=== PATIENT | female | born 1945 | race Caucasian/White ===

== ENCOUNTER → 2023-07-29 14:24 | Outpatient (REF) | payer MEDICARE, SELFPAY | LOC: RAD 14:24 | PROVIDERS: ATTENDING PHYSICIAN Internal Medicine Critical Care Medicine; FAMILY PHYSICIAN Internal Medicine | DX: R91.1 Solitary pulmonary nodule (principal) | CPT/HCPCS: 71250 ==

== ENCOUNTER → 2023-12-08 12:00 | Outpatient (REF) | payer MEDICARE, SELFPAY | LOC: DHSLP 12:00 | PROVIDERS: ATTENDING PHYSICIAN Internal Medicine Critical Care Medicine; FAMILY PHYSICIAN Internal Medicine | DX: G47.33 Obstructive sleep apnea (adult) (pediatric) (principal) | CPT/HCPCS: 95806 ==

== ENCOUNTER → 2023-12-10 12:51 | Outpatient (REF) | payer MEDICARE, SELFPAY | LOC: RAD 12:51 | PROVIDERS: ATTENDING PHYSICIAN Surgery Vascular Surgery; FAMILY PHYSICIAN Internal Medicine | DX: I65.22 Occlusion and stenosis of left carotid artery (principal) | CPT/HCPCS: 93880 ==

== ENCOUNTER → 2024-01-17 09:01 | Outpatient (REF) | payer MEDICARE, SELFPAY | LOC: RAD 09:01 | PROVIDERS: ATTENDING PHYSICIAN Internal Medicine Critical Care Medicine; FAMILY PHYSICIAN Internal Medicine | DX: R91.1 Solitary pulmonary nodule (principal); J84.9 Interstitial pulmonary disease, unspecified | CPT/HCPCS: 71250 ==

== ENCOUNTER → 2024-07-08 08:03 | Outpatient (REF) | payer MEDICARE, SELFPAY | LOC: RAD 08:03 | PROVIDERS: ATTENDING PHYSICIAN Internal Medicine | DX: J44.1 Chronic obstructive pulmonary disease with (acute) exacerbation (principal) | CPT/HCPCS: 71046 ==

== ENCOUNTER → 2024-10-18 08:05 | Outpatient (REF) | payer MEDICARE, SELFPAY | LOC: RCS 08:05 | PROVIDERS: ATTENDING PHYSICIAN Internal Medicine | DX: J44.1 Chronic obstructive pulmonary disease with (acute) exacerbation (principal); I48.20 Chronic atrial fibrillation, unspecified | CPT/HCPCS: 71046; 93306 ==

== ENCOUNTER → 2024-12-15 08:47 | Outpatient (REF) | payer MEDICARE, SELFPAY | LOC: DHVS 08:47 | PROVIDERS: ATTENDING PHYSICIAN Registered Nurse; FAMILY PHYSICIAN Internal Medicine | DX: I65.22 Occlusion and stenosis of left carotid artery (principal); I65.23 Occlusion and stenosis of bilateral carotid arteries | CPT/HCPCS: 93880 ==

== ENCOUNTER 2024-12-22 10:32 | Inpatient (IN) | payer MEDICARE, SELFPAY ==
[2024-12-22] VITALS (97 sets, daily range): BP systolic 66–192; BP diastolic 27–123; PULSE 2–124; BMI 31.8
--- NOTE | 2024-12-22 06:35 | ED.GENMED ---
History of Present Illness
<Lawson Grimes PA-C - Last Filed: 12/22/24 12:52>
General
Chief Complaint: Breathing Problem
Source: patient and spouse
Time Seen by Provider: 12/22/24 06:13
History of Present Illness
History of Present Illness:
79-year-old female with past medical history of atrial fibrillation, hypertension, asthma presenting to the emergency department for evaluation of a sudden onset of shortness of breath that began acutely starting after she went to bed last night,
stating that he noticed patient was coughing a little bit last night before bedtime but that patient had awoken in the middle the night stating she felt short of breath, pulse ox was reportedly around 90% on room air so has been put the
patient on 2 L oxygen via nasal cannula but patient still was experiencing shortness of breath prompting him to bring her to the ER for further evaluation. Both the patient and report that about a month and a half ago they were in [facility]
[place] when similar symptoms developed with the patient stating she had 'some type of infection but the hospital would not tell me what type of infection' and needed further oxygen and respiratory care during her hospitalization and
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 There has not been any reported fevers, chills,
rigors, current chest pain, palpitations or diaphoresis, abdominal pain, nausea, vomiting. Patient reports she is compliant with medications although she is having a hard time recollecting exactly what medications she is on but does endorse being
on a blood thinning medication.
Past History
<Lawson Grimes PA-C - Last Filed: 12/22/24 12:52>
Past History
ED Past Medical History: Arrthythmia, Asthma and HTN
ED Past Surgical History: None
Social History
Tobacco: Non-smoker
Alcohol: None
Drug: None
Personal:
Living: with family
Review of Systems
<Lawson Grimes PA-C - Last Filed: 12/22/24 12:52>
Review of Systems
All Other Systems: ROS reviewed and negative except as documented in HPI and ROS
Phy Exam
<Lawson Grimes PA-C - Last Filed: 12/22/24 12:52>
Physical Exam
Physical Exam:
GENERAL: Alert , appears uncomfortable, tachypneic, difficulty speaking in full sentences
HEAD: Normocephalic atraumatic
EYE: clear conjunctiva
NECK: Supple
ENT: o/p clr, mmm.
CARDIAC: Irregularly irregular, tachycardic rate between 120 bpm and 145 bpm
LUNGS: Diminished both anterior and posteriorly, crackles anteriorly, minimal air movement in the posterior lung ramachandran
ABDOMEN: Soft, without focal tenderness, no r/g, no cvat
NEUROLOGICAL: Alert and oriented
SKIN: Warm and dry, skin intact.
MUSCULOSKELETAL: No edema, well perfused.
PSYCH: Normal and appropriate interaction.
Scores
<Lawson Grimes PA-C - Last Filed: 12/22/24 12:52>
Heart Failure Risk
Heart Failure Risk Score: Yes
History of Stroke or TIA: No
History of intubation for respiratory distress: No
Heart rate on ED arrival >/= 110: Yes
SaO2 <90% on arrival on room air: Yes
HR >/=110 during 3min walk test (or too ill to perform test): Yes
ECG has acute ischemic changes: No
Urea >/=12mmol/L (BUN 33.6mg/dL): No
Serum CO2>/=35mmol/L: No
Troponin I or T elevated to AL Level (0.4mg/dL): No
NT-proBNP >/=5,000ng/L (5,000pg/ml): No
HF Risk Score: 3
Admission Status: HIGH RISK 15.9% Consider SNF treatment or admission to hospital
Heart Score for Chest Pain Patients
STEMI patient?: Not applicable
Withdrawal Assessment of Alcohol
Withdrawal Assessment Completed?: Not applicable
Course
<Lawson Grimes PA-C - Last Filed: 12/22/24 12:52>
Orders/Labs/Results
Orders:
Orders
12/22/24 06:14
Electrocardiogram (*1) Urgent
Reason for Study: Other
Other Reason for Exam: Respiratory Distress
Cardiac Monitoring- Treatment ONCE
EKG- Treatment ONCE
IV Insert/Care/Rem.- Treatment PRN
CR Chest Portable - 1 View Urgent
Reason For Exam: respiratory distress
O2 Therapy [RESP] Urgent
Titrate/Wean O2 to maintain O2 sat greater than (%): 93
Special Instructions: TO MAINTAIN CONTINUOUS O2 SATS >/= 93%
Pulse Ox/cont/shift [RESP] Urgent
Quantity: 1
Special Instructions: continuous pulse ox
12/22/24 06:27
Complete Blood Count/With Diff Urgent
Comprehensive Metabolic Panel Urgent
NT-proBNP Urgent
Troponin I Urgent
12/22/24 06:32
Diltiazem HCl [Cardizem] 10 mg IV NOW STA
Ipratropium/Albuterol Sulfate [Duoneb] 3 ml INH R NOW ONE
Bipap [RESP] Urgent
Patient to use own unit?: No
Inspiratory Pressure (cm H2O): 14
Expiratory Pressure (cm H2O): 6
12/22/24 06:43
Furosemide [Lasix] 20 mg IV NOW STA
12/22/24 06:45
Diltiazem 125 mg/125 ml Nss [Cardizem] 125 mg in 125 ml IV PER PROTOCOL
Initial dose in mg/hr, then titrate:: 5
Titrate to keep:: Heart rate 80-100 bpm
Titrate by mg/hr:: 5 mg/hr
Frequency of titrations (minutes):: 15
Maximum dose in mg/hr:: 15
Nitroglycerin 100 mg/250 ml [Nitroglycerin Premix] 100 mg in 250 ml IV PER PROTOCOL
Initial dose in mcg/min, then titrate:: 50
Titrate to keep:: SBP < 160 mmHg
Titrate by mcg/min:: 5 mcg/min, may increase by 10 mcg/min if dose > 20 mcg/min
Frequency of titrations (minutes):: every 3-5 minutes
Maximum dose in mcg/min:: 200
Begin to taper infusion when:: Remained at goal for 2hrs
Taper by mcg/min:: 5 mcg/min
Frequency of taper (minutes) if patient maintains goal:: 30
Taper to off?: Yes
If infusion off & no longer maintaining goal:: Contact Provider
12/22/24 07:09
COVID-19 Antigen Urgent
Source: Nasal Swab
12/22/24 07:46
Add On- LAB Urgent
Tests Added?: d-dimer
12/22/24 07:56
ABG [Arterial Blood Gas] Urgent
%Oxygen/Room Air: 4L NC
12/22/24 09:07
D-Dimer Routine
12/22/24 09:52
Admit/Transfer Patient As Directed
Co-Sign Provider:
Level of Care: Inpatient admission
Assign to:: IMU- Intermediate Care
Physician / Group: hospitalist
Diagnosis: Acute hypoxic respiratory failure
Reason for Hospitalization: Acute hypoxic respiratory failure
Expected length of stay greater than two midnights?: Yes
ELOS- Estimated Length of Stay in days: 3
I certify the patient meets the requirements for IP care: Yes
PRN Pain Medication Management As Directed
May give lesser potent ordered pain med per pt: Yes
preference::
Protocol:: Medication orders for pain may be administered in a
manner that supports deferring to patient preference
when the pt is:
- Requesting an ordered lesser potent pain medication.
Least to most potent pain medications are defined
as: acetaminophen < NSAID < tramadol < opioids
(morphine, oxycodone, hydromorphone).
- Requesting a lesser dose of the same medication IF
ORDERED.
- Requesting a less intrusive route of administration
if both routes are prescribed by the provider (PO <
IV).
12/22/24 09:56
Code Status As Directed
Resuscitation Status: Full Code
12/22/24 10:24
CT Chest W/o Iv Contrast Routine
Comment:
Reason For Exam: Acute onset SOB
Abnormal Lab Results
12/22/24 12/22/24 12/22/24
06:27 07:56 09:07
WBC 11.1 H 10^3/uL
(4.8-10.8)
MCHC 31.6 L g/dL
(33.0-37.0)
RDW 15.2 H %
(11.5-14.5)
Abs Immat Gran (auto) 0.1 H 10^3/uL
(0-0.05)
Absolute Neuts (auto) 9.5 H 10^3/uL
(1.4-6.5)
Absolute Lymphs (auto) 0.6 L 10^3/uL
(1.2-3.4)
Absolute Monos (auto) 0.7 H 10^3/uL
(0.1-0.6)
Neutrophils % 85.5 H %
(42.2-75.2)
Lymphocytes % 5.7 L %
(20.5-51.1)
D-Dimer 0.77 H ug/mlFEU
(0.00-0.50)
pCO2 37 H mmHg
(32-35)
pO2 75 L mmHg
(83-108)
Chloride 110 H mmol/L
(98-107)
BUN 18 H mg/dl
(7-17)
Glucose 116 H mg/dl
(70-99)
12/22/24 06:27
12/22/24 06:27
Vital Signs
Initial and Last Documented VS:
Initial Vital Signs
Temp Pulse Resp BP Pulse Ox
98.4 F 126 28 154/123 95
12/22/24 06:14 12/22/24 06:14 12/22/24 06:14 12/22/24 06:14 12/22/24 06:14
Last Documented Vital Signs
Temp Pulse Resp BP Pulse Ox
98.4 F 88 19 126/90 94
12/22/24 06:40 12/22/24 12:25 12/22/24 12:25 12/22/24 12:25 12/22/24 12:25
<Braden Dupree MD - Last Filed: 12/22/24 07:12>
Orders/Labs/Results
Orders:
Orders
12/22/24 06:14
Electrocardiogram (*1) Urgent
Reason for Study: Other
Other Reason for Exam: Respiratory Distress
Cardiac Monitoring- Treatment ONCE
EKG- Treatment ONCE
IV Insert/Care/Rem.- Treatment PRN
CR Chest Portable - 1 View Urgent
Reason For Exam: respiratory distress
O2 Therapy [RESP] Urgent
Titrate/Wean O2 to maintain O2 sat greater than (%): 93
Special Instructions: TO MAINTAIN CONTINUOUS O2 SATS >/= 93%
Pulse Ox/cont/shift [RESP] Urgent
Quantity: 1
Special Instructions: continuous pulse ox
12/22/24 06:27
Complete Blood Count/With Diff Urgent
Comprehensive Metabolic Panel Urgent
NT-proBNP Urgent
Troponin I Urgent
12/22/24 06:32
Diltiazem HCl [Cardizem] 10 mg IV NOW STA
Ipratropium/Albuterol Sulfate [Duoneb] 3 ml INH R NOW ONE
Bipap [RESP] Urgent
Patient to use own unit?: No
Inspiratory Pressure (cm H2O): 14
Expiratory Pressure (cm H2O): 6
12/22/24 06:43
Furosemide [Lasix] 20 mg IV NOW STA
12/22/24 06:45
Diltiazem 125 mg/125 ml Nss [Cardizem] 125 mg in 125 ml IV PER PROTOCOL
Initial dose in mg/hr, then titrate:: 5
Titrate to keep:: Heart rate 80-100 bpm
Titrate by mg/hr:: 5 mg/hr
Frequency of titrations (minutes):: 15
Maximum dose in mg/hr:: 15
Nitroglycerin 100 mg/250 ml [Nitroglycerin Premix] 100 mg in 250 ml IV PER PROTOCOL
Initial dose in mcg/min, then titrate:: 50
Titrate to keep:: SBP < 160 mmHg
Titrate by mcg/min:: 5 mcg/min, may increase by 10 mcg/min if dose > 20 mcg/min
Frequency of titrations (minutes):: every 3-5 minutes
Maximum dose in mcg/min:: 200
Begin to taper infusion when:: Remained at goal for 2hrs
Taper by mcg/min:: 5 mcg/min
Frequency of taper (minutes) if patient maintains goal:: 30
Taper to off?: Yes
If infusion off & no longer maintaining goal:: Contact Provider
12/22/24 07:09
COVID-19 Antigen Urgent
Source: Nasal Swab
12/22/24 07:46
Add On- LAB Urgent
Tests Added?: d-dimer
12/22/24 07:56
ABG [Arterial Blood Gas] Urgent
%Oxygen/Room Air: 4L NC
12/22/24 09:07
D-Dimer Routine
12/22/24 09:52
Admit/Transfer Patient As Directed
Co-Sign Provider:
Level of Care: Inpatient admission
Assign to:: IMU- Intermediate Care
Physician / Group: hospitalist
Diagnosis: Acute hypoxic respiratory failure
Reason for Hospitalization: Acute hypoxic respiratory failure
Expected length of stay greater than two midnights?: Yes
ELOS- Estimated Length of Stay in days: 3
I certify the patient meets the requirements for IP care: Yes
PRN Pain Medication Management As Directed
May give lesser potent ordered pain med per pt: Yes
preference::
Protocol:: Medication orders for pain may be administered in a
manner that supports deferring to patient preference
when the pt is:
- Requesting an ordered lesser potent pain medication.
Least to most potent pain medications are defined
as: acetaminophen < NSAID < tramadol < opioids
(morphine, oxycodone, hydromorphone).
- Requesting a lesser dose of the same medication IF
ORDERED.
- Requesting a less intrusive route of administration
if both routes are prescribed by the provider (PO <
IV).
12/22/24 09:56
Code Status As Directed
Resuscitation Status: Full Code
12/22/24 10:24
CT Chest W/o Iv Contrast Routine
Comment:
Reason For Exam: Acute onset SOB
Abnormal Lab Results
12/22/24 12/22/24 12/22/24
06:27 07:56 09:07
WBC 11.1 H 10^3/uL
(4.8-10.8)
MCHC 31.6 L g/dL
(33.0-37.0)
RDW 15.2 H %
(11.5-14.5)
Abs Immat Gran (auto) 0.1 H 10^3/uL
(0-0.05)
Absolute Neuts (auto) 9.5 H 10^3/uL
(1.4-6.5)
Absolute Lymphs (auto) 0.6 L 10^3/uL
(1.2-3.4)
Absolute Monos (auto) 0.7 H 10^3/uL
(0.1-0.6)
Neutrophils % 85.5 H %
(42.2-75.2)
Lymphocytes % 5.7 L %
(20.5-51.1)
D-Dimer 0.77 H ug/mlFEU
(0.00-0.50)
pCO2 37 H mmHg
(32-35)
pO2 75 L mmHg
(83-108)
Chloride 110 H mmol/L
(98-107)
BUN 18 H mg/dl
(7-17)
Glucose 116 H mg/dl
(70-99)
12/22/24 06:27
12/22/24 06:27
Vital Signs
Initial and Last Documented VS:
Initial Vital Signs
Temp Pulse Resp BP Pulse Ox
98.4 F 126 28 154/123 95
12/22/24 06:14 12/22/24 06:14 12/22/24 06:14 12/22/24 06:14 12/22/24 06:14
Last Documented Vital Signs
Temp Pulse Resp BP Pulse Ox
98.4 F 88 19 126/90 94
12/22/24 06:40 12/22/24 12:25 12/22/24 12:25 12/22/24 12:25 12/22/24 12:25
<Lawson Grimes PA-C - Last Filed: 12/22/24 12:52>
MDM/Problems Addressed
Differential Diagnosis Includes:
CHF
COPD/Asthma
Pulmonary Edema
Pneumonia
ACS
Cardiac Arrhythmia
Cardiomyopathy
Myocarditis/pericarditis
Interstitial lung disease
MDM/Problems Addressed:
79-year-old female presenting to the ER for acute onset of shortness of breath, found to be in rapid A-fib, significantly hypertensive, diminished lung sounds throughout. Given her acute onset of shortness of breath combined with her hypertension I
do have concern for a flash pulmonary edema. Will initiate patient on BiPAP for comfort, DuoNeb for possible COPD/asthma given her significantly restricted lung sounds, Cardizem bolus and drip for rapid A-fib and a nitroglycerin drip for better
blood pressure control. Patient will need admission for further care and treatment as well as consultation with cardiac and pulmonary teams. Monitor
Chronic conditions affecting care: Arrhythmia and Asthma
Acute Exacerbation and/or Progression of Chronic Illness: Arrhythmia and Asthma
<Lawson Grimes PA-C - Last Filed: 12/22/24 12:52>
*Radiology
Radiology exam reviewed: preliminary read by ED provider (Increased interstitial edema)
*Pulse Oximetry
SaO2: 88
Oxygen Mode of Delivery: Room air
Patient hypoxic: yes
*EKG
Heart Rate: 122
Rate: tachycardiac
Rhythm: a-fib
Ischemia: no ischemia
*Teacher Of The Visually Impaired Interpretation
Rate: tachycardiac
Heart Rate: 135
Rhythm: a-fib
*Critical Care Note
Total Time (30-74mins, 75-104mins- exclusive of procedures): 35
comment:
Critical care statement: A total of 35 minutes of critical care time was provided for this patient. This includes management of unstable vital signs, evaluation of the patient at bedside, reviewing the patient's pertinent medical records, discussion
with consultants, review of old EKGs and review of pertinent medical records. This time with separate from time utilized to perform the aforementioned documented procedures
Data Reviewed
Review of Other/Old Records Reveals: Labs and Records
<Lawson Grimes PA-C - Last Filed: 12/22/24 12:52>
Comment
Comment:
Based off of record review and primary care provider's notes there is significant noncompliance with medications. Patient has been intermittently taking her anticoagulants and also has been noted to stop her Lasix medication on her own. Given this
information I did add on a D-dimer to her workup although PE is thought to be less likely.
Patient's D-dimer noted to be slightly elevated at 0.77 but when age-adjusted it is within normal limits. Given she had abnormal lung exam and lung sounds at initial presentation my suspicion for PE is overall very low. Will defer any CT imaging
to hospitalist team. Following medications and BiPAP patient has had significant improvement of her symptoms. She still has mild tachypnea and is still mildly tachycardic and in A-fib but this is much improved from initial presentation. Plan to
admit to hospitalist team.
Patient Management
Discussion with other providers: Hospitalist
Escalation/DeEscalation of care consider admission/obs:
Hospitalist team was notified and accepted patient for continued evaluation and treatment
ED Attending Note
<Lawson Grimes PA-C - Last Filed: 12/22/24 12:52>
-
Portions of this chart may have been created with voice recognition software.� Occasional wrong word or��sound alike� substitutions may have occurred due to the inherent limitations of voice recognition software.
<Braden Dupree MD - Last Filed: 12/22/24 07:12>
ED Attending Note
Patient seen and examined by attending physician: Yes
ED Attending Note:
Patient with history of atrial fibrillation on anticoagulation (patient does not know the name of the blood thinner that she is on), recent admission at [facility] in [place] secondary to shortness of breath, presents to ED secondary to
recurrent shortness of breath starting yesterday evening. Per , patient utilizes CPAP at nighttime, instead opted to use supplemental oxygen secondary to increased work of breathing, which continued throughout the night. Patient denies
chest palpitations or chest pain. Denies dizziness. Denies fever. Patient does have chronic cough. Denies vomiting or diarrhea. Denies leg pain or swelling. Denies back pain. Patient and spouse report that during hospitalization in [facility]
[place], she was told that she had 'infection', requiring treatment during 2-day hospitalization. Patient does not remember the diagnosis nor all of the medications that she is currently taking. Unfortunately, however, patient has had number of
similar episodes in the past, required hospitalization.
Physical Exam
General: moderate respiratory distress, appears uncomfortable. afebrile. overweight
Head: nc/at. eomi
Neck: supple. normal range of motion. no jovd.
Heart: irregularly irregular, tachycardic.
Lungs: moderate respiratory distress. diminished breath sounds bilaterally. mild use of intercostal muscles noted
Abdomen: normal bowel sounds. not tender.
Neuro: alert and oriented x 3. no focal neurological deficits
Skin: no rash
Psychiatric: well kept. interactive and cooperative
Extremities: LE b/l, nonpitting edema. no calf tenderness.
History and exam, along with urgent chest x-ray concerning for either/pulm edema versus rapid atrial fibrillation with heart failure. Patient started on BiPAP along with DuoNebs, as well as Cardizem bolus followed by Cardizem infusion. Will try to
obtain medical records from patient's recent hospitalization in [place]. Patient will be admitted for further evaluation and treatment.
Discharge Plan
Departure
Patient Disposition: Admit
Date of Disposition: 12/22/24
Time of Disposition: 07:42
Presentation/result/management discussed w/ accepting MD/DO: Hospitalist
Discharge Problem:
Acute respiratory distress, Atrial fibrillation with RVR, CHF (congestive heart failure), Hypertension
Interventions
Interventions:
*Risk Screen - Suicide Last Done: 12/22/24 06:14
*General Assessment Last Done: 12/22/24 06:14
*Neglect/Abuse Screening Last Done: 12/22/24 06:14
*ED- Fall Risk Assessment Last Done: 12/22/24 06:14
ED- Cardiac Assessment Last Done: 12/22/24 06:14
ED- Pulmonary Assessment Last Done: 12/22/24 06:14
[2024-12-22 06:45] LABS: Hematocrit 44.0 % (37.0-47.0); Hemoglobin 13.9 g/dL (12.0-16.0); Mean Corp Hgb Conc. 31.6 g/dL (33.0-37.0); Mean Corpuscular Volume 95.7 fL (81.0-99.0); Nucleated Red Blood Cells % 0 %; Platelet Count 200 10^3/uL (130-400); Red Cell Dist. Width 15.2 % (11.5-14.5)
[2024-12-22] MEDS: DUONEB 3 ML INH ×3 (06:47→19:25)
[2024-12-22] MEDS: LASIX 20 MG IV (06:49)
[2024-12-22] MEDS: CARDIZEM 10 MG IV (06:50)
[2024-12-22] MEDS: CARDIZEM 125 IV (07:00)
[2024-12-22 07:09] LABS: ALT (SGPT) 24 U/L (0-35); AST (SGOT) 22 U/L (14-36); Albumin 4.5 g/dl (3.5-5.0); Alkaline Phosphatase 72 U/L (38-126); Blood Urea Nitrogen 18 mg/dl (7-17); Calcium 9.9 mg/dl (8.4-10.2); Carbon Dioxide 25 mmol/L (22-30); Chloride 110 mmol/L (98-107); Estimated Creatinine Clearance 67 ml/min; Glucose 116 mg/dl (70-99); Potassium 4.5 mmol/L (3.5-5.1); Sodium 141 mmol/L (135-145); Total Protein 6.8 g/dl (6.3-8.2); eGFR > 60.00
[2024-12-22] MEDS: NITROGLYCERIN PREMIX 250 IV (07:16)
[2024-12-22 07:24] LABS: Troponin I 0.015 ng/ml
[2024-12-22 07:32] LABS: COVID-19 Antigen Negative (Negative)
[2024-12-22 08:04] LABS: B.E. 0.5 mmol/L; HCO3 24.6 mmol/L (21-28); O2 Saturation % 96.8 % (94-98); PCO2 37 mmHg (32-35); PO2 75 mmHg (83-108)
--- NOTE | 2024-12-22 09:16 | HPS.HSE ---
Addendum entered and electronically signed by Jose Orosco MD 12/22/24 14:28:
Total time spent on today's encounter was 45 minutes of critical care time which included time spent in counseling the patient/family regarding diagnosis and treatment plan as listed above, goals of care, and symptom management. Case was discussed
with nursing staff, specialists, and care coordinators/case management. All labs and imaging personally reviewed by me. Remainder the time spent in detailed review of previous records, lab data, imaging, and other medical provider documentation.
Addendum entered and electronically signed by Jose Orosco MD 12/22/24 14:24:
I saw and examined the patient.
The Residents note was reviewed and I agree with the note.
Comment:
79-year-old female with history of ? Asthma, hypertension, hyperlipidemia, atrial fibrillation presents for shortness of breath. Symptoms began overnight with usual state of health prior to event. Patient noted to be coughing around bedtime and
noted to be hypoxic to 90%. Improved with 2 L O2. Symptoms of dyspnea continued and therefore prompting hospital visit. Patient had recent hospitalizations for similar symptoms as well as atrial fibrillation and acute HFpEF. As per family, had
prolonged respiratory illness in May and has been hospitalized 3 times since then. Hypertensive upon admission, on nitroglycerin, atrial fibrillation requiring diltiazem drip. Placed on BiPAP with 20 mg IV Lasix given. Improvement in
symptoms as per patient. CT imaging with progressive mild emphysema and chronic interstitial changes reflecting developing chronic interstitial lung disease as well as interstitial pneumonitis. Small right and trace left pleural effusions.
Acute hypoxic respiratory failure
� Most likely combination of flash pulmonary edema in setting of hypertension as well as atrial fibrillation+ possible interstitial pneumonitis
� Continue DuoNebs
� Wean BiPAP as tolerated, is on nightly NIV and should continue
� Initiate steroids, anticipate taper
� Continue 20 mg IV Lasix daily for now
-See plan below for HR and BP control
Interstitial pneumonitis
� DuoNebs
�trial steroids
� Will need pulmonary follow-up as well as PFTs
Hypertensive emergency (with respiratory failure):
Essential hypertension:
- Wean off nitroglycerin
�Anticipate resuming usual medications once able to be off BiPAP
Afib with RVR:
- Known Afib history. Rate now controlled
- Resume oral regimen once off noninvasive ventilation
- Continue Eliquis
� Wean diltiazem drip
Asthma:
- Asthma history is questionable as pt was only recently diagnosed and reports no PFTs.
- Continue Trelegy ellipta daily for now
- No wheezing on exam. Continue Albuterol PRN
- Will require PFTs outpatient
-Pulm outpt f/u
Code status: Full code
DVT ppx: Eliquis
Original Note:
Family Physician
-
Family Physician: Eduardo Mccain
Chief Complaint
-
Shortness of breath
History of Present Illness
79 F with history of asthma, hypertension, hypercholesterolemia, afib, who presents with sudden onset shortness of breath that woke her up at 4am this morning. she was in her usual state of health prior to yester evening. Her noticed she had
some coughing around bedtime and checked her pulse ox which was around 90%. He administered 2L O2 nasal cannula and she went to bed. She was then woken by dypnea at 4am. Symptoms continued until she roused her at 6am and they decided to
present to the ED.
She has oxygen in the home for occasional trouble breathing which they attribute to her asthma.
Recently hospitalized in [place] with similar symptoms a month ago. reports that she was being treated for respiratory problems and an unspecified infection.
They report having a prolonged respiratory illness in May (pt and ), and pt has been hospitalized 3 times since for respiratory problems. She was relatively well prior to that illness.
Medical History
Past Medical History
Past Medical History: Reports Arrhythmia (afib), Asthma, HTN and Hypercholesterolemia
Past Surgical History: Reports None
Social History
Tobacco: Former Smoker (Quit 50 years ago)
Alcohol: None
Drug: None
Personal:
Living: With Family
Family History
Family History: Not pertinent
Allergies / Home Medications
Allergies reflects when Allergies were last updated in [employer].
Home Medications with original date entered in [employer]
Allergy/Medication List:
Allergies
Allergy/AdvReac Type Severity Reaction Status Date / Time
No Known Allergies Allergy Verified 12/22/24 06:37
Home Medications
albuterol sulfate 90 mcg/actuation aerosol inhaler 2 puff inhalation R Q6HPRN PRN sob 12/22/24
apixaban 5 mg tablet (Eliquis) 5 mg PO BID Blood Clot Prevention/Tx 12/22/24
atorvastatin 40 mg tablet (Lipitor) 40 mg PO QPM High Cholesterol 12/22/24
diltiazem HCl 240 mg capsule,24 hr,extended release 240 mg PO DAILY Arrhythmia 12/22/24
fluticasone fur. 200 mcg-umeclid 62.5 mcg-vilant 25 mcg inhalat.powder (Trelegy Ellipta) 1 inh inhalation R DAILYPRN PRN sob 12/22/24
guaifenesin 600 mg tablet, extended release 12 hr (Mucinex) 600 mg PO BIDPRN PRN congestion 12/22/24
metoprolol succinate 100 mg tablet,extended release 24 hr (Toprol XL) 100 mg PO DAILY Blood Pressure 12/22/24
valsartan 320 mg-hydrochlorothiazide 12.5 mg tablet 1 tab PO DAILY Blood Pressure 12/22/24
Review of Systems
-
Constitutional: Denies Fever or Night Sweats
Respiratory: Reports Cough and Trouble Breathing
Cardiac: Denies Chest Pain, Diaphoresis or Palpitations
Abdomen/GI: Denies Abdominal Pain, Nausea, Vomiting, Diarrhea or Constipated
: Denies Dysuria or Difficulty Voiding
Musculoskeletal: Denies Edema
Physical Exam
Vital Signs
Vital Signs
Temp Pulse Resp BP Pulse Ox
98.4 F 101 27 130/70 93
12/22/24 06:40 12/22/24 09:00 12/22/24 09:00 12/22/24 09:00 12/22/24 09:00
Physical Exam
General: Well Developed, Well Nourished and Comfortable
HEENT: NormoCephalic, Anicteric and Moist mucous membranes
Respiratory: Crackles (diffuse, most notable in bibasilar region) and Other (reduced airflow)
Cardiac: S1/S2 and Irregular Rhythm; No Murmur, Rub, Peripheral Edema or Calf Tenderness
GI: Soft, Non Tender, Non Distended, Normal Bowel Sounds and No Hepatosplenomegaly
Genito-urinary: Clear Urine
Musculoskeletal: No Clubbing, No Cyanosis and No Edema
Skin: Warm and Dry
Neuro: Awake, Alert and Oriented
Psych: Calm
Laboratory Results
-
12/22/24 06:27
12/22/24 06:27
Laboratory Results
pH 7.43 (7.35-7.45) 12/22/24 07:56
pCO2 37 mmHg (32-35) H 12/22/24 07:56
pO2 75 mmHg (83-108) L 12/22/24 07:56
HCO3 24.6 mmol/L (21-28) 12/22/24 07:56
Total Bilirubin 1.2 mg/dl (0.2-1.3) 12/22/24 06:27
AST 22 U/L (14-36) 12/22/24 06:27
ALT 24 U/L (0-35) 12/22/24 06:27
Alkaline Phosphatase 72 U/L (38-126) 12/22/24 06:27
Troponin I 0.015 ng/ml 12/22/24 06:27
Impression/Plan
-
IMPRESSION:79 F with history of asthma, hypertension, hypercholesterolemia, afib, who presents with sudden onset SOB.
PLAN:
Acute hypoxic respiratory failure:
Secondary to flash pulmonary edema.
Secondary to acute CHF
- CXR showed mild pulmonary congestion
- Good response to 20mg IV lasix. Consider another 20mg IV after CT chest
- Continue BIPAP, wean as able
- Will not get repeat echo as likely not different from recent echo in September which showed afib, severe R&L atrial enlargement, elevated pulmonary artery pressure, EF 50-55%
- Check IandO, fluid restrict
- Check Chest CT. Check LE venous doppler
- Cards consult
Hypertensive emergency (with respiratory failure):
Essential hypertension:
- Diurese for now, continue oral antihypertensives (metoprolol, Valsartan-HCTZ) when off bipap and can tolerate PO meds
- Wean off nitroglycerin
Afib with RVR:
- Known Afib history. Rate now controlled
- Hold home cardizem. Continue Cardizem drip
- Wean off/convert to oral as able
- Continue Eliquis
Asthma:
- Asthma history is questionable as pt was only recently diagnosed and reports no PFTs.
- Continue Trelegy ellipta daily for now
- No wheezing on exam. Continue Albuterol PRN
- Will require PFTs outpatient
Code status: Full code
DVT ppx: Eliquis
--- NOTE | 2024-12-22 09:51 | CM ---
CM reviewed chart and met with pt bedside in ED. Pt lives with , 2 story home, no ERIC, first floor BR/full BA.
Independent in ADLs, personal care and ambulation at baseline. Does not use assistive devices. Has walker, cane, shower rails and shower chair. Uses O2 2L NC at home, has concentrator, tank and portable concentrator. Unsure of supplier, is in
[place]. Also has CPAP machine.
Confirms prescription coverage.
No hx VN or SNF.
PCP: Eduardo Mccain
Pharmacy: [facility]
CM will continue to follow for any discharge planning needs.
[2024-12-22 10:03] LABS: D-Dimer 0.77 ug/mlFEU (0.00-0.50)
--- NOTE | 2024-12-22 12:05 | CON.CAR ---
Addendum entered and electronically signed by Geraldo James MD 12/22/24 16:36:
I saw and examined the patient.
The Electric Drill Operator's note was reviewed and I agree with the note.
Comment:
GEN: No distress, awake, Ox3
HEENT: supple, anicteric, mmm
LUNGS: CTA, no wheezes/rales
CV: Reg, S1/S2, 1/6 syst LSB, no gallop
ABD: soft, BS+, NT/ND
EXT: No edema
NEURO: Gross non-focal
SKIN: No rash
Plan:
79-year-old female with past medical history of permanent atrial fibrillation, hypertension, hyperlipidemia peripheral vascular disease presents with shortness of breath, fatigue, weight gain, and abdominal fullness. She had some orthopnea and
presented to the emergency room and was treated with nebulizers and IV Lasix. The patient denies any chest pains. She states she has had atrial fibrillation for a while and has no palpitations.
Upon arrival in the emergency room she was felt to be in some mild respiratory distress and was placed on IV nitroglycerin and BiPAP. She was given Lasix 20 mg IV and felt much better.
Currently she is resting comfortably in bed with no chest pains and shortness of breath much improved. She did diurese well.
Acute on chronic heart failure with preserved ejection fraction. Will repeat echocardiogram. Wean off nitroglycerin. Continue IV Lasix and diurese.
proBNP is only modestly elevated. CT scan reveals mild emphysema and interstitial changes with possible pneumonitis. Agree with pulmonary evaluation.
Continue to reconsult strategy for her atrial fibrillation. Rates are currently controlled. Okay to wean Cardizem. Continue diltiazem and metoprolol titrate as needed.
Continue Eliquis.
Continue Diovan.
She is on prednisone Symbicort and Spiriva for her lungs.
Will follow.
Original Note:
Consultation
Consultation Request
Date/Time Consultation Performed: 12/22/24
Requesting Provider: Dr. Gladys Chappell, resident
Performing Provider: Ashley Anderson PA-C for Dr. James
Reason for Consultation: CHF
Medical History
-
Chief Complaint: SOB
History of Present Illness:
Patient is an 79 yo F with PMH of permanent afib on chronic eliquis, HTN, HLD, carotid stenosis s/p CEA 2016, who reports some degree of underlying lung disease since diagnosed with 2 bouts of [id number] pneumonia several years ago. She reports
she does not follow-up with pulmonary regularly but reports is scheduled to see them next week, and symptoms have mostly been managed through her primary care physician. She then reports in late August she and her were in [place] and
she had an episode very similar to today where she became fairly rapidly significantly short of breath resulting in her getting admitted to [facility]. Appears she was treated for COPD exacerbation and underwent echocardiogram,
however I do not have echo results at this time. She does not recall hearing she has a history of cardiomyopathy or weakened heart muscle. She reports with episodes she gets the sensation of feeling her upper abdomen is firm. She reports having
similar symptoms last evening, and was up all night feeling short of breath, and then at 430 finally states 'I could not take it anymore'. And woke up her who called 911 and brought her in. She was initially requiring BiPAP on arrival, now
weaned to supplemental oxygen. She reports feeling significantly improved compared to this morning. Received dose of IV Lasix 20 mg with significant response as well as DuoNeb. A-fib was noted to be rapid on arrival, now improved on IV Cardizem
drip. Blood pressure was also noted to be significantly elevated, now improved on IV nitro drip at 5. She denies any associated chest pain or palpitations. Cardiology consulted for evaluation.
PMH:
admission to [facility] in [place] 09/24 - 09/26/2024 for COPD exacerbation
Permanent atrial fibrillation
Chronic anticoagulation with Eliquis
Hypertension
Hyperlipidemia
Carotid stenosis status post endarterectomy in 2017
Lung disease
GERD
Past Medical History
Past Medical History: Other (in HPI)
Social History
Tobacco: Former Smoker (remote)
Personal:
Living: With Family
Employment: Retired
Family History
Family History: Reviewed & Not Pertinent
Allergies / Home Medications
Allergy/AdvReac Type Severity Reaction Status Date / Time
No Known Allergies Allergy Verified 12/22/24 06:37
�Medication �Instructions �Recorded �Confirmed �Type
albuterol sulfate 90 mcg/actuation 2 puff inhalation R Q6HPRN PRN sob 12/22/24 12/22/24 History
aerosol inhaler
apixaban 5 mg tablet (Eliquis) 5 mg PO BID Blood Clot 12/22/24 12/22/24 History
Prevention/Tx
atorvastatin 40 mg tablet (Lipitor) 40 mg PO QPM High Cholesterol 12/22/24 12/22/24 History
diltiazem HCl 240 mg capsule,24 240 mg PO DAILY Arrhythmia 12/22/24 12/22/24 History
hr,extended release
fluticasone fur. 200 mcg-umeclid 1 inh inhalation R DAILYPRN PRN sob 12/22/24 12/22/24 History
62.5 mcg-vilant 25 mcg
inhalat.powder (Trelegy Ellipta)
guaifenesin 600 mg tablet, 600 mg PO BIDPRN PRN congestion 12/22/24 12/22/24 History
extended release 12 hr (Mucinex)
metoprolol succinate 100 mg 100 mg PO DAILY Blood Pressure 12/22/24 12/22/24 History
tablet,extended release 24 hr
(Toprol XL)
valsartan 320 1 tab PO DAILY Blood Pressure 12/22/24 12/22/24 History
mg-hydrochlorothiazide 12.5 mg
tablet
Review of Systems
-
History Source: Patient
All other systems: Negative unless noted
Physical Exam
Vital Signs
Temp Pulse Resp BP Pulse Ox
98.4 F 79 26 101/83 91
12/22/24 06:40 12/22/24 11:05 12/22/24 11:05 12/22/24 11:05 12/22/24 11:05
Lab Results
12/22/24 06:27
12/22/24 06:27
Troponin I 0.015 ng/ml 12/22/24 06:27
Ace-A-Hsagcwtlgbl Pept 1430 pg/ml 12/22/24 06:27
Physical Exam
General: No Apparent Distress, Comfortable and Other (on supp O2)
HEENT: Normocephalic, Anicteric and Moist Mucous Membranes
Respiratory: Wheezes, Crackles and Non Labored Respirations
Cardiac: S1/S2 and Irregular Rhythm
GI: Soft, Non Tender, Non Distended and Normal Bowel Sounds
Musculoskeletal: No Clubbing, No Cyanosis and No Edema
Skin: Warm and Dry
Neuro: AO x 3
Impression / Plan
-
Primary Call Center Dispatcher: Dr. Adams
Assessment:
Presentation with SOB
Acute hypoxic respiratory failure, requiring BIPAP on arrival
Concern for flash pulmonary edema
HTN emergency
Permanent atrial fibrillation, with RVR on arrival
Chronic anticoagulation with Eliquis
Admission to [facility] in [place] 09/24 - 09/26/2024 for COPD exacerbation
Hypertension
Hyperlipidemia
Carotid stenosis status post endarterectomy in 2017
Lung disease, ? COPD
GERD
Remote former smoker
ECHO 10/18/24: EF 50 to 55%, mild concentric LVH, severe left atrial dilation and right atrial dilation, moderate MR, mild AI, moderate TR, PAP 40 to 45 mmHg
Plan:
- Patient presents with shortness of breath and acute respiratory failure requiring BiPAP, with concern for flash pulmonary edema. She also has known underlying lung disease.
- proBNP 1430. Chest CT with small right and trace left pleural effusions and small pericardial effusions with evidence of mild emphysema and chronic interstitial lung changes
- Responding well to 20 mg IV Lasix given in ER. Would continue IV diuresis and wean supplemental oxygen as able. Is on valsartan/HCTZ combo pill as outpatient
- Recent echo from 09/2024 with results as above, EF preserved. Would consider follow-up study to reassess EF
- Blood pressure much improved from admission. Would wean off IV nitro drip, currently at 5, as able
- Heart rates were rapid in A-fib on arrival, suspected due to hypoxia, now improved. Would wean off IV Cardizem gtt as able. As outpatient on diltiazem 240 mg daily and toprol 100mg daily, resume
- Continue outpatient Eliquis
- Troponin 0.015. No complaints of chest pain. As outpatient, would consider for ischemic evaluation in setting of suspected flash pulmonary edema
- Reviewed available records from admission to [facility] in [place] 09/24 - 09/26/2024 -patient reports this is an identical presentation, was treated for COPD exacerbation
- Would consider pulmonary evaluation, and have relayed to patient that she needs to follow-up with pulmonary as an outpatient in the setting of known underlying lung disease. She is unsure if she has ever had PFTs and if not, will need as OP
Data Reviewed
-
EKG: Tracing Personally Visualized and interpreted
CT Scan: Report Reviewed by me
Medical Tests (Nuc Med, Echo etc): Report Reviewed by me
Labs: Labs Reviewed by me
Old Records: Reviewed
[2024-12-22] MEDS: SOLU-MEDROL PF 40 MG IV (14:24)
[2024-12-22] MEDS: CARDIZEM CD 240 MG PO (15:28)
[2024-12-22] MEDS: TOPROL XL 100 MG PO (15:53)
[2024-12-22] MEDS: DIOVAN 320 MG PO (15:53)
--- NOTE | 2024-12-22 16:18 | PTCARENOTE ---
Patient due for oretic, valsartin and metoprolol xl. Reviewed with Dr Adhikari who was at bedside seeing patient; ok to give valsartin and metoprolol but hold oretic and he will adjust order in computer. Ok to continue weaning nitro drip. POx 95-98%
on 2L n/c; attempted to wean to RA but POx 91% with increased SAHA. Patient placed back on 2L n/c.
[2024-12-22] MEDS: LIPITOR 40 MG PO (17:16)
[2024-12-22] MEDS: SYMBICORT 160/4.5 MCG INHALER 2 PUFF INH (19:28)
[2024-12-22] MEDS: ELIQUIS 5 MG PO (20:47)
[2024-12-23] VITALS (13 sets, daily range): BP systolic 108–147; BP diastolic 68–107; O2SAT 96; BMI 31.5
[2024-12-23] MEDS: SOLU-MEDROL PF 40 MG IV ×2 (00:16→12:03)
--- NOTE | 2024-12-23 01:16 | PTCARENOTE ---
nitro gtt turned off at 1999. SBPs have been less than 160 since gtt has been off. Patient has no complaints. VSS. AAOx3. call lowry in reach.
[2024-12-23 04:26] LABS: Hematocrit 39.1 % (37.0-47.0); Hemoglobin 12.4 g/dL (12.0-16.0); Mean Corp Hgb Conc. 31.7 g/dL (33.0-37.0); Mean Corpuscular Volume 95.8 fL (81.0-99.0); Nucleated Red Blood Cells % 0 %; Platelet Count 203 10^3/uL (130-400); Red Cell Dist. Width 14.9 % (11.5-14.5)
[2024-12-23 04:49] LABS: Blood Urea Nitrogen 21 mg/dl (7-17); Calcium 10.3 mg/dl (8.4-10.2); Carbon Dioxide 24 mmol/L (22-30); Chloride 107 mmol/L (98-107); Estimated Creatinine Clearance 57 ml/min; Glucose 190 mg/dl (70-99); Magnesium 2.1 mg/dl (1.6-2.3); Potassium 4.6 mmol/L (3.5-5.1); Sodium 139 mmol/L (135-145); eGFR > 60.00
[2024-12-23] MEDS: DUONEB 3 ML INH ×2 (07:28→11:08)
[2024-12-23] MEDS: SPIRIVA RESPIMAT 2.5 MCG 2 PUFF INH (07:29)
[2024-12-23] MEDS: SYMBICORT 160/4.5 MCG INHALER 2 PUFF INH (07:30)
[2024-12-23] MEDS: DIOVAN 320 MG PO (08:10)
[2024-12-23] MEDS: TOPROL XL 100 MG PO (08:11)
[2024-12-23] MEDS: ELIQUIS 5 MG PO (08:12)
[2024-12-23] MEDS: CARDIZEM CD 240 MG PO (08:12)
[2024-12-23] MEDS: LASIX 20 MG IV (08:12)
--- NOTE | 2024-12-23 08:18 | PTCARENOTE ---
On walking rounds Nitro infusion was off. Pt Is AAOx3 POX 96% on 2 LO2
--- NOTE | 2024-12-23 08:19 | PTCARENOTE ---
O2 removed, POX 94% on RA Lungs diminished HR irregular, pt in AFIB.
--- NOTE | 2024-12-23 12:17 | CM ---
Following up on patient. NATASHA Nagy met with the patient. Patient knew what she was here for in the IMU. Medical Team not yet ready to discharge her. Medical Team will provide an exam that will test her respiratory status.
When asked, patient has oxygen at home and cannot recall the name of the company, but thinks it is [employer].
Patient will have transportation to home by family when she is ready. IMM completed today.
Plan: home with services or no needs, yet to be determined.
--- NOTE | 2024-12-23 12:29 | HFEDUCATE ---
79 yo female admitted with SOB, fatigue, weight gain and abd fullness. Past medical history includes A-fib, hypertension, hyperlipidemia, PVD, Acute on chronic Heart failure with preserved EF. Her current echocardiogram shows an ejection fraction
of 57%. She lives at home with her . She reports not really following a low sodium diet or a 48oz fluid restriction per day. She has a scale but does not weigh herself daily.
I provided HF education and discussed the usual lifestyle recommendations. I advised she follow a low sodium diet of 2000-3000mg. per day and follow a 500-750mg. per meal restriction. I advised a 48 oz. fluid restriction per day and discussed ways
to achieve the recommendations. I also advised she weigh herself daily and monitoring for any slight weight gain. I reviewed how to monitor for exacerbations. We discussed other alarming symptoms to watch for and when to notify her provider. We
discussed need for medications.
Recommendations:
Continue all HF recommended medications as ordered on discharge.
Limit sodium intake to <500-750 mg. per meal.
Limit fluid intake to <48 oz per day.
Daily weights and contact provider for any weight gain >3lbs in one day or 5lbs in one week.
Follow up with provider as recommended
--- NOTE | 2024-12-23 12:50 | W.PN.HOSP.TC ---
Addendum entered and electronically signed by Jose Orosco MD 12/23/24 17:38:
[id number]
Addendum entered and electronically signed by Jose Orosco MD 12/23/24 13:22:
Stop HCTZ, initiate lasix 20mg daily
Original Note:
Today's Communication/Plan
-
steroid taper
resume home regimen
f/u pcp, cards, pulm outpt
pfts outpatient
Assessment / Plan
Assessment / Plan
Physical Exam
General: Well Developed, Well Nourished and Comfortable
HEENT: NormoCephalic, Anicteric and Moist mucous membranes
Respiratory: CTAB
Cardiac: S1/S2 and Irregular Rhythm; No Murmur, Rub, Peripheral Edema or Calf Tenderness
GI: Soft, Non Tender, Non Distended, Normal Bowel Sounds and No Hepatosplenomegaly
Genito-urinary: Clear Urine
Musculoskeletal: No Clubbing, No Cyanosis and No Edema
Skin: Warm and Dry
Neuro: Awake, Alert and Oriented
Psych: Calm
IMPRESSION:79 F with history of asthma, hypertension, hypercholesterolemia, afib, who presents with sudden onset SOB.
PLAN:
Acute hypoxic respiratory failure
� Most likely combination of flash pulmonary edema in setting of hypertension as well as atrial fibrillation+ possible interstitial pneumonitis
-Weaned off to RA, ambulating 96% on RA
� Continue DuoNebs
� Wean BiPAP as tolerated, is on nightly NIV and should continue
� Responded well on steroids - steroid taper on dc
� Continue 20 mg IV Lasix daily - can dc - for now;
-See plan below for HR and BP control
Interstitial pneumonitis
-no fever/chills - no hx of URI
-may be precipitated by volume overload as well
� DuoNebs
�trial steroids - steroid taper on dc
� Will need pulmonary follow-up as well as PFTs
Hypertensive emergency (with respiratory failure):
Essential hypertension:
- Weaned off nitroglycerin
�off BiPAP
-cont home meds
-apparent non complaint with meds as per
Afib with RVR:
- Known Afib history. Rate now controlled
- Resume oral regimen once off noninvasive ventilation
- Continue Eliquis
� Weaned off diltiazem drip
Asthma:
- Asthma history is questionable as pt was only recently diagnosed and reports no PFTs.
- Continue Trelegy ellipta daily for now - switch to standing (was on PRN) and apparently was non compliant with some medications
- No wheezing on exam. Continue Albuterol PRN
- Will require PFTs outpatient
-Pulm outpt f/u
Code status: Full code
DVT ppx: Eliquis
More than 30 minutes spent in discharge including
Final examination of the patient
Summarizing hospital stay
Instructions for continuing care to all relevant caregivers
Preparation of discharge records, prescriptions, and referral forms
Total time spent (in minutes): 36
Anticipated Discharge: Today
Subjective/Interval History
-
Date of Service: December 23, 2024
Weaned off oxygen supplementation, room air, ambulating 96%
Objective Data
-
Labs:
Laboratory Results
12/23/24
04:16
WBC 9.7
Hgb 12.4
Hct 39.1
Plt Count 203
Sodium 139
Potassium 4.6
Chloride 107
Carbon Dioxide 24
BUN 21 H
Creatinine 0.7
Glucose 190 H
Calcium 10.3 H
Vital Signs:
Vital Signs
Temp Pulse Resp BP Pulse Ox
98.0 F 84 24 108/71 93
12/23/24 11:52 12/23/24 11:45 12/23/24 11:45 12/23/24 11:39 12/23/24 11:39
I&O
12/22/24 12/23/24 12/24/24
06:59 06:59 06:59
Output Total 1000 / 1000
Balance -1000 / -1000
Review of Systems
-
History Source: Patient
All other systems: Not reviewed unless documented
Data Reviewed
-
Diagnostic Radiology: Report Reviewed by me
CT Scan: Report Reviewed by me
Labs: Labs Reviewed by me
--- NOTE | 2024-12-23 13:22 | W.DS.TRANS ---
DC Summary - Non Destructive Evaluation Manager
-
Discharge Instructions:
Discharge Diagnosis/Procedures Acute hypoxic respiratory failure
Acute on chronic HFpEF
Interstitial Pneumonitis
Diet Low Cholesterol,Low Fat,Restrict fluids to 64 oz
Blood Work cbc and bmp in 3-5 days with pcp
Others Tests PFTs with Pulmonary Outpatient
Specialty Instructions Weigh Daily
Instructions:
Stand-Alone Forms:
Changes to Home Medications: Yes
Discharge Medications:
DC Medications w/original date entered in [employer]
albuterol sulfate 90 mcg/actuation aerosol inhaler 2 puff inhalation R Q6HPRN PRN sob 12/22/24
apixaban 5 mg tablet (Eliquis) 5 mg PO BID Blood Clot Prevention/Tx 12/22/24
atorvastatin 40 mg tablet (Lipitor) 40 mg PO QPM High Cholesterol 12/22/24
diltiazem HCl 240 mg capsule,24 hr,extended release 240 mg PO DAILY Arrhythmia 12/22/24
guaifenesin 600 mg tablet, extended release 12 hr (Mucinex) 600 mg PO BIDPRN PRN congestion 12/22/24
metoprolol succinate 100 mg tablet,extended release 24 hr (Toprol XL) 100 mg PO DAILY Blood Pressure 12/22/24
fluticasone fur. 200 mcg-umeclid 62.5 mcg-vilant 25 mcg inhalat.powder (Trelegy Ellipta) 1 inh inhalation DAILY sob #60 ea 12/23/24
furosemide 20 mg tablet (Lasix) 20 mg PO DAILY 30 days #30 tabs 12/23/24
prednisone 10 mg tablet See Rx Instructions .Route .COMPLEX #45 tabs 12/23/24
valsartan 320 mg tablet 320 mg PO DAILY #30 tabs 12/23/24
Home Medication Changes
fluticasone fur. 200 mcg-umeclid 62.5 mcg-vilant 25 mcg inhalat.powder (Trelegy Ellipta) 1 inh inhalation DAILY sob #60 ea 12/23/24
furosemide 20 mg tablet (Lasix) 20 mg PO DAILY 30 days #30 tabs 12/23/24
prednisone 10 mg tablet See Rx Instructions .Route .COMPLEX #45 tabs 12/23/24
valsartan 320 mg tablet 320 mg PO DAILY #30 tabs 12/23/24
Pending Results: No
--- NOTE | 2024-12-23 13:34 | W.PN.CARDCBS ---
Addendum entered and electronically signed by Kenny Rico MD 12/23/24 15:49:
79-year-old woman admitted with acute on chronic HFpEF. She feels well
PMH: Permanent A-fib, hypertension, hyperlipidemia, PAD
Current medications: Furosemide 20 mg IV daily, apixaban 5 mg twice daily, atorvastatin 40 mg a day, Spiriva, Symbicort, valsartan 320 mg daily, metoprolol ER 100 mg a day, diltiazem CD2 140 mg a day, methylprednisolone 40 IV every 12
108/71, pulse 84, respiratory rate 24, afebrile, weight 73.074 kg, down 1.3 kg from admission, head neck exam unremarkable, lungs are clear, irregular rate and rhythm, Soft systolic murmur at apex JVD okay, no significant edema
Echo: EF 57%, E/E prime elevated, normal RV, mild to moderate mitral regurgitation, mildly dilated right atrium, moderate tricuspid regurgitation, mild aortic regurgitation pulmonary artery systolic pressure 45 mmHg
Hemoglobin is 12.4, white count is 9.7, BUN/creatinine are 21 and 0.7, proBNP was 1430, troponin was 0.015
ECG: Atrial fibrillation, cannot exclude anterior DC
Impression:
See below. Reviewed in detail and agree, unless otherwise specified.
Plan:
Stable for discharge.
Substitute furosemide for HCTZ. Continue diltiazem and metoprolol.
Cardiology follow-up arranged.
Addendum entered and electronically signed by Ashley Anderson PA-C 12/23/24 13:55:
called and discussed with patient's , Rufino via telephone for 8:20. All questions answered. she is planned for DC today.
Original Note:
Today's Communication / Plan
-
transition OP HCTZ to lasix 20mg po daily
BMP in 1 week
continue toprol, cardizem
steroid taper as per hospitalist
OP cardiac and pulm follow up
Impression / Plan
-
Primary Segmental Wall Installer: Dr. Bryan
Assessment:
Presentation with SOB
Acute hypoxic respiratory failure, requiring BIPAP on arrival
Concern for flash pulmonary edema
COPD, concern for acute exacerbation
HTN emergency
Permanent atrial fibrillation, with RVR on arrival, improved
Chronic anticoagulation with Eliquis
Admission to [facility] in [place] 09/24 - 09/26/2024 for COPD exacerbation
ILD
Hypertension
Hyperlipidemia
Carotid stenosis status post endarterectomy in 2017
GERD
Remote former smoker
ECHO 10/18/24: EF 50 to 55%, mild concentric LVH, severe left atrial dilation and right atrial dilation, moderate MR, mild AI, moderate TR, PAP 40 to 45 mmHg
Plan:
- Patient presents with shortness of breath and acute respiratory failure requiring BiPAP, with concern for flash pulmonary edema. She also has known underlying lung disease.
- She is now off oxygen
- Responded well to IV Lasix. Prior to admission was on valsartan/HCTZ combo pill. Will transition to p.o. Lasix 20 mg daily upon discharge with BMP in 1 week
- Follow-up echo without significant change compared to prior
- Blood pressure and heart rates much improved. She has permanent atrial fibrillation. Continue outpatient regimen of Cardizem 240 mg daily and Toprol 100 mg daily
- Continue outpatient Eliquis
- Troponin 0.015. No complaints of chest pain. As outpatient, would consider for ischemic evaluation in setting of suspected flash pulmonary edema
- have relayed to patient that she needs to follow-up with pulmonary as an outpatient in the setting of known underlying lung disease. By review of outpatient pulmonary notes, she did have PFTs which showed moderate obstruction
- OP cardiac follow up arranged
- d/w nursing
- d/w hospitalist via TT
Progress Note - Segmental Wall Installer
Subjective
Date of Service: December 23, 2024
reports breathing much improved
Objective
Labs:
12/23/24 04:16
12/23/24 04:16
Labs
Hgb 12.4 g/dL (12.0-16.0) 12/23/24 04:16
Hct 39.1 % (37.0-47.0) 12/23/24 04:16
Plt Count 203 10^3/uL (130-400) 12/23/24 04:16
Sodium 139 mmol/L (135-145) 12/23/24 04:16
Potassium 4.6 mmol/L (3.5-5.1) 12/23/24 04:16
BUN 21 mg/dl (7-17) H 12/23/24 04:16
Creatinine 0.7 mg/dL (0.6-1.0) 12/23/24 04:16
Glucose 190 mg/dl (70-99) H 12/23/24 04:16
Troponins
12/22/24
06:27
Troponin I 0.015
Vital Signs and I&O:
Vital Signs
Temp Pulse Resp BP Pulse Ox
98.0 F 84 24 108/71 93
12/23/24 11:52 12/23/24 11:45 12/23/24 11:45 12/23/24 11:39 12/23/24 11:39
Vital Signs
Temp Pulse Resp BP Pulse Ox
98.0 F 84 24 108/71 93
12/23/24 11:52 12/23/24 11:45 12/23/24 11:45 12/23/24 11:39 12/23/24 11:39
Intake & Output
12/21/24 12/22/24 12/23/24 12/24/24
07:59 07:59 07:59 07:59
Output Total 1000 / 1000
Balance -1000 / -1000
Physical Exam
Physical Exam
GEN: No distress, awake, alert, oriented x3
HEENT: supple, anicteric, mmm, eomi
LUNGS: Few crackles B/L bases, no wheezes
CV: Irreg, S1/S2, 1/6 murmur
ABD: soft, BS+, NT/ND
EXT: No cyanosis, clubbing, edema
NEURO: Gross non-focal
SKIN: Warm, pink, dry. No rash
[2024-12-23] MEDS: DUONEB INH (14:58)
--- NOTE | 2024-12-23 15:35 | PTCARENOTE ---
dc to niece, [facility]. Pt has a dry cough when she lest
== END 2024-12-23 15:48 | disposition home or self-care (01) | DRG 291 ==
LOC: IMU 10:32
PROVIDERS: Physician Assistant Medical; Student in an Organized Health Care Education/Training Program; ADMITTING PHYSICIAN Internal Medicine; CONSULT PHYSICIAN Internal Medicine Cardiovascular Disease; EMERGENCY PHYSICIAN Emergency Medicine; FAMILY PHYSICIAN Internal Medicine
PROC: 5A09357 Assistance with Respiratory Ventilation, Less than 24 Consecutive Hours, Continuous Positive Airway Pressure (ICD-10-PCS; 2024-12-22)
DX: I11.0 Hypertensive heart disease with heart failure (principal); I50.33 Acute on chronic diastolic (congestive) heart failure; J96.01 Acute respiratory failure with hypoxia; I16.1 Hypertensive emergency; I48.21 Permanent atrial fibrillation; I42.9 Cardiomyopathy, unspecified; J84.89 Other specified interstitial pulmonary diseases; Z79.01 Long term (current) use of anticoagulants; J44.89 Other specified chronic obstructive pulmonary disease; Z87.891 Personal history of nicotine dependence; E78.00 Pure hypercholesterolemia, unspecified; I73.9 Peripheral vascular disease, unspecified; J43.9 Emphysema, unspecified; K21.9 Gastro-esophageal reflux disease without esophagitis; Z79.899 Other long term (current) drug therapy; Z91.148 Patient's other noncompliance with medication regimen for other reason
CPT/HCPCS: 71045; 71250; 80048; 80053; 82805; 83735; 83880; 84484; 85025; 85379; 87811; 93005; 93308; 94640; 94660; 96374; 96375; 96376; 99291

== ENCOUNTER 2024-12-28 03:28 | Inpatient (IN) | payer MEDICARE, SELFPAY ==
[2024-12-28] VITALS (21 sets, daily range): BP systolic 131–200; BP diastolic 78–116; PULSE 81–86; O2SAT 93–94; BMI 32.6; BMI 30.4
[2024-12-28 00:39] LABS: Glucose - Point of Care 104 mg/dl (70-99)
[2024-12-28 01:05] LABS: Hematocrit 45.9 % (37.0-47.0); Hemoglobin 14.6 g/dL (12.0-16.0); Mean Corp Hgb Conc. 31.8 g/dL (33.0-37.0); Mean Corpuscular Volume 94.3 fL (81.0-99.0); Nucleated Red Blood Cells % 0 %; Platelet Count 290 10^3/uL (130-400); Red Cell Dist. Width 15.0 % (11.5-14.5)
[2024-12-28] MEDS: NITROSTAT (SUBLINGUAL) 0.4 MG SL (01:10)
[2024-12-28 01:18] LABS: INR 1.02; PT 13.7 Sec (11.4-14.6)
[2024-12-28 01:19] LABS: APTT 21.7 Sec (23.4-35.0)
[2024-12-28] MEDS: DUONEB 3 ML INH (01:24)
[2024-12-28] MEDS: NITRO-BID 1 INCH TOPICAL (01:28)
[2024-12-28 01:33] LABS: Blood Urea Nitrogen 33 mg/dl (7-17); Calcium 9.9 mg/dl (8.4-10.2); Carbon Dioxide 27 mmol/L (22-30); Chloride 108 mmol/L (98-107); Estimated Creatinine Clearance 58 ml/min; Glucose 95 mg/dl (70-99); Sodium 141 mmol/L (135-145); eGFR > 60.00
[2024-12-28 01:38] LABS: Troponin I 0.015 ng/ml
--- NOTE | 2024-12-28 01:39 | ED.CVA ---
History of Present Illness
General
Chief Complaint: CVA/TIA Symptoms
Source: patient
Time Seen by Provider: 12/28/24 00:26
Nursing documentation reviewed up to this point in time: agreed with
Onset of Stroke Symptoms
Onset of symptoms known: Yes
Date of onset of symptoms: 12/27/24
Time of onset of symptoms: 23:30
Time pt last seen normal is known: No
History of Present Illness
History of Present Illness:
Note:
CHIEF COMPLAINT(S)
Shortness of breath.
HISTORY OF PRESENT ILLNESS
The patient is an 79-year-old female presenting with slurred speech that has resolved and shortness of breath. Upon initial evaluation, she showed no signs of slurred speech and was oriented to person, place, and time, able to provide her name and
date of accurately. However, she reports a feeling of 'just a little bit' of difficulty breathing. Her shortness of breath has worsened from her baseline. The patient exhibited some forgetfulness. Her stroke scale score is zero, indicating no
acute signs of stroke, but concerns remain due to resolved speech and current breathing issues. Lower extremity swelling was assessed, with no significant swelling observed at the time of examination.
PHYSICAL EXAM
General: Alert, moderate acute distress.
Skin: Warm, dry.
Head: Normocephalic, atraumatic.
Neck: Supple, trachea midline.
Eye Ears, Nose, Mouth and Throat: Oral mucosa moist.
Cardiovascular: Normal peripheral perfusion, No edema.
Respiratory: Crackles at the lung bases detected. Generalized wheezing
Gastrointestinal : Abdomen nondistended
Back: Normal range of motion, Normal alignment.
Musculoskeletal: Normal range of motion, normal strength.
Neurological: Alert and oriented to person, place, time, and situation, no focal neurological deficit observed.
Psychiatric: Cooperative, appropriate mood & affect.
PROBLEM LIST
Acute: Shortness of breath, resolved speech impairment, elevated blood pressure.
PLAN
1. Readmissions to the hospital for further observation and management.
2. Address elevated blood pressure, including ensuring compliance with antihypertensive medication.
3. Monitor respiratory status closely due to the presence of crackles at lung bases.
4. Continue to assess for potential speech and cognitive impairments.
DIFFERENTIAL DIAGNOSIS
The Differential Diagnosis includes, in no particular order and is not limited to:
1. Congestive heart failure exacerbation
2. Chronic obstructive pulmonary disease exacerbation
3. Pneumonia
4. Pulmonary embolism
5. Acute myocardial infarction
6. Stroke versus TIA
7. Medication non-compliance
8. Atrial fibrillation with rapid ventricular response
9. Anxiety or panic attack
10. Neurological disorders (dementia-related changes)
NIHSS:
Result Summary
0 points undefined
Inputs:
1A: Level of consciousness -> 0 = Alert; keenly responsive
1B: Ask month and age -> 0 = Both questions right
'Blink eyes' & 'squeeze hands' -> 0 = Performs both tasks
2: Horizontal extraocular movements -> 0 = Normal
3: Visual ramachandran -> 0 = No visual loss
4: Facial palsy -> 0 = Normal symmetry
5A: Left arm motor drift -> 0 = No drift for 10 seconds
5B: Right arm motor drift -> 0 = No drift for 10 seconds
6A: Left leg motor drift -> 0 = No drift for 5 seconds
6B: Right leg motor drift -> 0 = No drift for 5 seconds
7: Limb ataxia -> 0 = No ataxia
8: Sensation -> 0 = Normal; no sensory loss
9: Language/aphasia -> 0 = Normal
10: Dysarthria -> 0 = Normal
11: Extinction/inattention -> 0 = Normal
CARE-UPDATE
12/28/24 - 01:47
The patient is potentially noncompliant with medication, as expressed by the . Specifically, there are concerns regarding adherence to prescribed doses of Eliquis (apixaban). Close monitoring and reevaluation of medication adherence
strategies are recommended to ensure effective management of the patients condition.
CARE-UPDATE
12/28/24 - 01:[address] Roblero from [facility], who personally reviewed the CT scans. Awaiting further input after his consultation with a colleague.
CARE-UPDATE
12/28/24 - 02:[address] Roblero from neurology, who suspects an acute thrombus. He recommends initiating heparin therapy without a bolus, conducting neurochecks every hour, and scheduling an MRI for the morning. Patient to be admitted to the ICU; the ""hospital has been informed.
Disposition:
SUMMARY OF ENCOUNTER
The patient is an 79-year-old female who presented to the emergency department with previous episodes of slurred speech that had resolved and shortness of breath related to congestive heart failure (CHF) exacerbation. Her speech impairment had
resolved before arrival. The patients respiratory distress has improved after administering nitroglycerin, furosemide, and a breathing treatment. Concerns of potential thrombus led to consultation with neurology, resulting in the plan to administer
heparin without a bolus and conduct hourly neurochecks, alongside an MRI scheduled for the next morning.
DISPOSITION
Admit
ASSESSMENT
The patient presents with resolved transient ischemic attack (TIA) or potential cerebrovascular accident (CVA) and CHF exacerbation.
EMERGENCY TREATMENTS ADMINISTERED
The patient received nitroglycerin, furosemide (Lasix), and a breathing treatment to manage shortness of breath.
MANAGEMENT OF THE PATIENTS CARE WAS DISCUSSED WITH
Discussion with Dr. Roblero from [facility] regarding CT scan findings and patient management. Dr. Roblero recommended initiating heparin therapy without bolus, hourly neurochecks, and an MRI in the morning.
PLAN
Admit the patient to the ICU for further management, including initiation of a heparin drip, conducting hourly neurological checks, scheduling an MRI in the morning, and ensuring continuous treatment for CHF exacerbation.
MEDICATION RECONCILIATION
Noncompliance concerns with apixaban (Eliquis) were addressed. During the emergency visit, nitroglycerin and furosemide were administered.
MEDICAL DECISION MAKING
1. Number and Complexity of Problems Addressed: Chronic conditions affecting care include congestive heart failure exacerbation. Differential diagnosis considered includes transient ischemic attack or cerebrovascular accident (TIA vs. CVA).
2. Data:
- Category 1: Tests and documents included reviewing CT scan findings. Neurological patients records reviewed with input from Dr. Roblero.
- Category 2: Consultation with Dr. Roblero from [facility] for CT scan interpretation and patient management.
- Category 3: Discussion of management with Dr. Roblero regarding thrombosis concern and subsequent therapeutic measures.
3. Risk: The decision for hospital admission to the ICU indicates a significant risk due to potential thrombus formation highlight, and CHF exacerbation, necessitating close monitoring and intervention.
DIAGNOSIS
- Transient ischemic attack (TIA) vs. Cerebrovascular accident (CVA) [ICD-10: G45.9]
- Congestive heart failure exacerbation [ICD-10: I50.9]
Past History
Past History
ED Past Medical History: Arrthythmia, Asthma and HTN
ED Past Surgical History: None
Social History
Tobacco: Non-smoker
Alcohol: None
Drug: None
Personal:
Living: with family
Phy Exam
General Physical Exam
General Presentation: moderate distress
General age: appears stated age
General Skin: warm and dry
General Habitus: normal
General Mental: alert
General Hydration: appears well hydrated
ENT Exam
ENT Exam: EOMI, pharynx normal, neck supple and normocephalic
Eye Exam
Eye Exam: PERRL, cornea clear and conjunctiva normal
Cardiovascular Exam
Cardiovascular Exam: regular rate/rhythm, no edema, no murmur and normal peripheral pulses
Pulmonary Exam
Pulmonary Exam: accessory muscle use, generalized wheezing and respiratory distress
Oxygen Status: oxygen 6 liters via NC
Respirations: accessory muscle use and moderate effort
Breath Sounds: Wheeze: generalized and Rhonchi: left lower and right lower
Gastrointestinal Exam
Gastrointestinal Exam: normal bowel sounds, non tender, soft, no organomegaly, no pulsatile mass and non distended
Neurological Exam
Neurological Exam: alert and oriented x3
Musculoskeletal Exam
Musculoskeletal Exam: full ROM
Skin Exam
Skin Exam: normal color, warm/dry, no rash and no petechia
Psychiatric Exam
Psychiatric Exam: normal mood/affect
Scores
Heart Failure Risk
Heart Failure Risk Score: Yes
History of Stroke or TIA: No
History of intubation for respiratory distress: No
Heart rate on ED arrival >/= 110: No
SaO2 <90% on arrival on room air: Yes
HR >/=110 during 3min walk test (or too ill to perform test): Yes
ECG has acute ischemic changes: No
Urea >/=12mmol/L (BUN 33.6mg/dL): Yes
Serum CO2>/=35mmol/L: No
Troponin I or T elevated to PR Level (0.4mg/dL): No
NT-proBNP >/=5,000ng/L (5,000pg/ml): No
HF Risk Score: 4
Admission Status: HIGH RISK 26.1% Consider SNF treatment or admission to hospital
Course
Orders/Labs/Results
Orders:
Orders
12/28/24 00:26
[address] BRAIN PERF STROKE ALERT Urgent
Comment:
Reason For Exam: slurring
CT HEAD STROKE ALERT W/o Cont Urgent
Comment:
Reason For Exam: slurring
CT HEAD/NECK ANG STROKE ALERT Urgent
Comment:
Reason For Exam: slurring
12/28/24 00:28
Electrocardiogram (*1) Urgent
Reason for Study: Shortness of Breath
EKG- Treatment ONCE
12/28/24 00:57
Basic Metabolic Panel Urgent
Comment: NO K
Complete Blood Count/With Diff Urgent
Erythrocyte Sed Rate Urgent
NT-proBNP Urgent
PTT Urgent
Prothrombin Time Urgent
Troponin I Urgent
12/28/24 01:02
Labetalol HCl [Trandate] 10 mg IV NOW STA
12/28/24 01:09
Nitroglycerin Sublingual [Nitrostat (Sublingual)] 0.4 mg .ROUTE .STK-MED ONE
12/28/24 01:10
Nitroglycerin Sublingual [Nitrostat (Sublingual)] 0.4 mg SL NOW STA
12/28/24 01:11
Nitroglycerin Ointment [Nitro-Bid] 1 inch TOPICAL NOW STA
12/28/24 01:19
CR Chest Portable - 1 View Urgent
Comment:
Reason For Exam: dyspnea
Reason Study Needs to be Portable: Patient Unstable
12/28/24 01:23
Ipratropium/Albuterol Sulfate [Duoneb] 3 ml .ROUTE .STK-MED ONE
Ipratropium/Albuterol Sulfate [Duoneb] 3 ml INH R NOW ONE
12/28/24 02:02
Furosemide [Lasix] 40 mg IV NOW STA
12/28/24 02:[address] Non Medication Order As Directed
Physician Order: PTT 6 hours after initial start of Heparin infusion
Above order entered?: Yes
12/28/24 02:[address] Non Medication Order As Directed
Physician Order: PTT 6 hours after initial start of Heparin infusion
Above order entered?: Yes
12/28/24 02:30
Heparin [id number] Units/250 ml 25,000 units in 250 ml IV PER PROTOCOL
Weight to be used for heparin protocol in kilograms (kg):: 75.7
Protocol:: DVT/PE
PTT Goal Range to be used:: PTT 73 to 111 seconds
Order type:: Initial
INITIAL Infusion Dose (UNITS/KG/hr) & then follow protocol:: 18 units/kg/hr
Infusion Dose in UNITS/hr & then follow protocol (UNITS/hr):: 1,400
INFUSION RATE in mL/hr & then follow protocol (mL/hr):: 14
For DVT/PE algorithm, re-bolus for low PTT?: No
PTT less than or equal to 64 seconds:: No Re-bolus. Increase by 300 units/hr (+ 3mL/hr)
PTT 64.1 to 72.9 seconds:: No Re-bolus. Increase by 200 units/hr (+ 2mL/hr)
PTT 73 to 111 seconds:: Target Range. No change in rate.
PTT 111.1 to 130.9 seconds:: Decrease rate by 200 units/hr (- 2 mL/hr)
PTT 131 to 199.9 seconds:: HOLD for 1 hr. Then decrease by 200 units/hr (- 2mL/hr)
PTT greater than or equal to 200 seconds:: HOLD for 2 hrs & Notify Provider. Then decrease by 300 units/hr
(- 3mL/hr)
Lab follow-up:: Each change, PTT q6h until 2 consecutive are therapeutic. Then
PTT daily.
12/28/24 03:00
Heparin [id number] Units/250 ml 25,000 units in 250 ml IV PER PROTOCOL
12/28/24 03:14
Admit/Transfer Patient As Directed
Co-Sign Provider:
Level of Care: Inpatient admission
Assign to:: IMU- Intermediate Care
Physician / Group: Bhavesh
Diagnosis: CVA/TIA, CHF
Reason for Hospitalization: CVA/TIA, CHF
Expected length of stay greater than two midnights?: Yes
ELOS- Estimated Length of Stay in days: 2
I certify the patient meets the requirements for IP care: Yes
PRN Pain Medication Management As Directed
May give lesser potent ordered pain med per pt: Yes
preference::
Protocol:: Medication orders for pain may be administered in a
manner that supports deferring to patient preference
when the pt is:
- Requesting an ordered lesser potent pain medication.
Least to most potent pain medications are defined
as: acetaminophen < NSAID < tramadol < opioids
(morphine, oxycodone, hydromorphone).
- Requesting a lesser dose of the same medication IF
ORDERED.
- Requesting a less intrusive route of administration
if both routes are prescribed by the provider (PO <
IV).
12/28/24 03:17
Code Status As Directed
Resuscitation Status: Full Code
12/28/24 04:30
Acetaminophen [Tylenol/Feverall] 650 mg RECTAL Q4HPRN PRN
Acetaminophen [Tylenol] 650 mg PO Q4HPRN PRN
Albuterol [ProAIR HFA INHALER] 2 puff INH R Q6HPRN PRN sob
Guaifenesin [Mucinex] 600 mg PO BIDPRN PRN congestion
12/28/24 04:30
Case Management Consult ONCE
Case Management Consult: Discharge Planning
Comment: stroke/tia
DIETARY IP CONSULT Routine
Reason for Consult: stroke/TIA
NEUROLOGY CONSULT Routine
Consulting Provider: Johnny Puente
Was physician already notified: Yes
Night Time Babysitter Urgent
MR Brain Without Contrast Routine
Comment:
Reason For Exam: stroke/TIA
Recent pill cam endoscopy?: No
Heparin Protocol- PTT Orders As Directed
PTT per Heparin protocol: -Obtain CBC and baseline PTT - if not already collected.
-Obtain PTT 6 hours from start of infusion. Then, every 6 hours until 2 consecutive
PTT's are therapeutic. Then, PTT Daily.
-With each rate change, obtain PTT every 6 hours until 2 consecutive PTT's are
therapeutic. Then, PTT Daily.
Activity As Directed
Activity Level: With Assistance
NIH Stroke Scale As Directed
Directions: Per protocol
Comment: every shift and with any change in condition or mental status
Neurological Checks As Directed
Frequency: q1h
Additional Instructions:: q4h x 24h upon admission to the floor, then qshift & with any change in condition
and mental status
Notify MD As Directed
Notify physician if: PTT is greater than or equal to 200.
Patient Education As Directed
Type: Stroke education packet
Comment: provide to patient and family
Pneumatic Compression Sleeves As Directed
Type: Knee high
Swallow Screening CVA/TIA ONLY As Directed
Comment: NPO until swallowing screening completed
If patient FAILS swallow screening:: NPO, Speech Therapy consult, Aspiration Precautions
If patient PASSES swallow screening, diet:: Cholesterol Lowering
Vital Signs As Directed
Frequency: Per unit guidelines
O2 Therapy [RESP] Routine
Nasal Cannula Liter Flow: 2 LPM
Titrate/Wean O2 to maintain O2 sat greater than (%): 94
Special Instructions: Titrate oxygen via nasal cannula starting at 2 liters/minute to keep SpO2 greater than
94%. Notify physician if greater than or equal to 6 liters/minute of O2
Ot Eval And Treat Routine
Pt Eval And Treat Routine
Activity Level: With Assistance
Speech Therapy Eval & Treat Routine
DX Deep Vein Thrombosis Video Routine
12/28/24 06:00
Basic Metabolic Panel IN AM
Cardiovascular Evaluation IN AM
Complete Blood Count/No Diff IN AM
Glycohemoglobin (HgbA1c) IN AM
Magnesium IN AM
12/28/24 08:00
PTT Urgent
Diltiazem Extended Release [Cardizem Cd] 240 mg PO DAILY
Furosemide [Lasix] 20 mg IV BID AT 0800,1600
Metoprolol Xl [Toprol Xl] 100 mg PO DAILY
Prednisone [Deltasone] 40 mg PO DAILY
Valsartan [Diovan] 320 mg PO DAILY
12/28/24 18:00
Atorvastatin [Lipitor] 40 mg PO QPM
12/30/24 06:00
Complete Blood Count/No Diff Q2D
Comment: notify provider: Platelet count < 130,000 or decrease by 50% from baseline
12/31/24 08:00
Prednisone [Deltasone] 30 mg PO DAILY
01/01/25 06:00
Complete Blood Count/No Diff Q2D
Comment: notify provider: Platelet count < 130,000 or decrease by 50% from baseline
01/03/25 06:00
Complete Blood Count/No Diff Q2D
Comment: notify provider: Platelet count < 130,000 or decrease by 50% from baseline
01/05/25 06:00
Complete Blood Count/No Diff Q2D
Comment: notify provider: Platelet count < 130,000 or decrease by 50% from baseline
01/07/25 06:00
Complete Blood Count/No Diff Q2D
Comment: notify provider: Platelet count < 130,000 or decrease by 50% from baseline
01/09/25 06:00
Complete Blood Count/No Diff Q2D
Comment: notify provider: Platelet count < 130,000 or decrease by 50% from baseline
01/11/25 06:00
Complete Blood Count/No Diff Q2D
Comment: notify provider: Platelet count < 130,000 or decrease by 50% from baseline
01/13/25 06:00
Complete Blood Count/No Diff Q2D
Comment: notify provider: Platelet count < 130,000 or decrease by 50% from baseline
Abnormal Lab Results
12/28/24 12/28/24
00:29 00:57
WBC 11.9 H 10^3/uL
(4.8-10.8)
MCHC 31.8 L g/dL
(33.0-37.0)
RDW 15.0 H %
(11.5-14.5)
Abs Immat Gran (auto) 0.3 H 10^3/uL
(0-0.05)
Absolute Neuts (auto) 9.5 H 10^3/uL
(1.4-6.5)
Absolute Lymphs (auto) 0.9 L 10^3/uL
(1.2-3.4)
Absolute Monos (auto) 1.2 H 10^3/uL
(0.1-0.6)
Immature Gran % 2.2 H %
(0-0.5)
Neutrophils % 79.2 H %
(42.2-75.2)
Lymphocytes % 7.9 L %
(20.5-51.1)
Monocytes % 10.0 H %
(1.7-9.3)
APTT 21.7 L Sec
(23.4-35.0)
Chloride 108 H mmol/L
(98-107)
BUN 33 H mg/dl
(7-17)
POC Glucose 104 H mg/dl
(70-99)
12/28/24 00:57
12/28/24 00:57
Vital Signs
Initial and Last Documented VS:
Initial Vital Signs
Pulse Resp BP Pulse Ox
99 24 200/102 94
12/28/24 00:52 12/28/24 00:52 12/28/24 00:52 12/28/24 00:52
Last Documented Vital Signs
Pulse Resp BP Pulse Ox
102 21 175/99 97
12/28/24 03:15 12/28/24 03:15 12/28/24 03:00 12/28/24 03:15
*Pulse Oximetry
SaO2: 97
Oxygen Mode of Delivery: Room air
Patient hypoxic: no
*Critical Care Note
Total Time (30-74mins, 75-104mins- exclusive of procedures): 43 (Critical care statement: A total of 43 minutes of critical care time was provided for this patient. This time is separate from time utilized to perform the aforementioned documented
procedures. Aggregate critical care time includes only time during which I was engaged in work directl)
Update Note
Update Note:
NAME: EARL LEACH
DATE OF EXAM: 12/28/2024
Patient No: [id number]
Physician: RALPH
Date of : 1945
Past Medical History (entered by Technologist):
Reason For Exam (entered by Technologist): onset 2300
Other Notes (entered by Technologist): per pt and ems, ems were called for slurred speech. symptoms resolved by the time ems arrived though pt c/o some sob. on arrival denies neuro symptoms. speech clear
Additional Information (per [facility]iologist):
CT HEAD WITHOUT CONTRAST
CT ANGIOGRAM HEAD AND NECK WITH IV CONTRAST
CT BRAIN PERFUSION WITH IV CONTRAST
Comparison: None available
IMPRESSION:
Head:
--No evidence for intracranial hemorrhage. No definite CT signs of acute large vessel territory ischemic infarct.
--A few small age-indeterminate lacunar infarcts in the right cerebellum and bilateral basal ganglia.
--Mild to moderate generalized parenchymal volume loss. Mild to moderate hypoattenuation in the white matter, nonspecific but most commonly seen with chronic small vessel ischemic disease.
Angiogram:
--Initial attempt at imaging is severely limited due to poor contrast bolus. A repeat attempt was made. There is good opacification of the arteries on the repeat attempt. There is however some limitation related to prominent venous opacification
in the head. Additionally, there are streak artifacts in the neck.
--There is an occlusion of the right vertebral artery beginning at the distal V3 segment which exhibits irregular luminal narrowing prior to the occlusion. The V4 segment remains occluded for approximately 2 cm, with reconstitution of flow noted
distally. This finding is of uncertain chronicity. Acute embolism/thrombosis or dissection is possible.
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
--Bilateral common carotid and internal carotid arteries are patent. Moderate to severe stenoses of the cavernous segments of the internal carotid arteries.
--Basilar artery is patent.
--Bilateral posterior cerebral artery P1 and P2 segments are diffusely small in caliber but patent.
--Bilateral anterior cerebral artery A1 and A2 segments are patent.
--Bilateral middle cerebral artery M1 and M2 segments are patent. There is a suspected moderate to severe stenosis of a right MCA at M2 segment and a moderate stenosis of AN additional M2 segment.
--Bilateral interlobular septal thickening in the lungs suggestive of interstitial pulmonary edema. Pulmonary emphysema. Marked atherosclerotic disease of the aortic arch with a focal outpouching suggestive of a small saccular aneurysm or
penetrating ulcer measuring up to 14 x 8 mm. Mild mediastinal adenopathy. Moderate degenerative changes in the cervical spine.
Perfusion:
--Limited by motion artifact.
--The following data was calculated by the RAPID software:
--CBF < 30%: 0 mL
--T-max > 6 s : 8 mL (in the bilateral inferior frontal lobes)
--Mismatch volume: 8 mL
--Mismatch ratio: infinite
--Tmax > 4 s: 80 mL (patchy areas throughout both cerebral and cerebellar hemispheres)
--Hypoperfusion index: 0.0
--CBV index: 1.0
--Suspect the small areas of increased Tmax > 6 s in the inferior frontal lobes may be artifactual given the motion artifacts and given the bilaterality which would not correspond with a single vascular territory. Ischemic penumbra is less likely
though difficult to entirely exclude. No evidence for infarct core.
Recommend neurology consultation for further management. Consider followup with brain MRI/MRA.
Case discussed with Dr. Cisneros at 1:16 AM ET (after my initial review of the images). After completion of the review of the images, the report was faxed to the ED and radiology department at 1:36 AM ET.
Prakash Drake M.D.
This report has been electronically signed and verified by the Radiologist whose name is printed above.
ED Attending Note
-
Portions of this chart may have been created with voice recognition software.� Occasional wrong word or��sound alike� substitutions may have occurred due to the inherent limitations of voice recognition software.
Discharge Plan
Departure
Patient Disposition: Admit
Date of Disposition: 12/28/24
Time of Disposition: 02:09
Admit to: ICU
Presentation/result/management discussed w/ accepting MD/DO: Hospitalist
Condition: Fair
Discharge Problem:
Brain TIA, Acute exacerbation of CHF (congestive heart failure), Medically noncompliant, Occlusion of right vertebral artery
Interventions
Interventions:
*Risk Screen - Suicide Last Done: 12/28/24 01:35
*General Assessment Last Done: 12/28/24 01:03
*Neglect/Abuse Screening Last Done: 12/28/24 01:35
*ED- Fall Risk Assessment Last Done: 12/28/24 01:03
*ED COVID-19 Vaccine History Last Done: 12/28/24 01:03
ED- Pulmonary Assessment Last Done: 12/28/24 01:20
ED- Neurological Assessment Last Done: 12/28/24 03:15
ED- Cardiac Assessment Last Done: 12/28/24 01:20
[2024-12-28] MEDS: LASIX 40 MG IV (02:08)
[2024-12-28] MEDS: HEPARIN 25000 UNITS/250 ML IV (02:37)
--- NOTE | 2024-12-28 02:59 | HPS.HSE ---
Family Physician
-
Family Physician: Eduardo Mccain
Chief Complaint
-
Difficulty speaking
History of Present Illness
This is a 79-year-old female with past medical history significant for atrial fibrillation on anticoagulation, emphysema, hypertension presenting to the emergency department with episode of slurred speech and some shortness of breath.
Patient was recently admitted to the hospital for CHF exacerbation and mild COPD exacerbation. She was treated with diuretics and was discharged on p.o. Lasix on December 23. Upon arrival in the emergency department the patient showed no further
signs of slurred speech and she was oriented to person place and time. She states she is still having some difficulty with breathing. She denies any coughing fevers or chills. Initial NIH stroke scale was 0 but concerned remained due to history
of a fever and possible TIA. She had no significant swelling in her lower extremities. She had no chest pain.
Initial vital signs showed a blood pressure of 166/98 with a pulse of 110 and she was satting 98% on room air. Chest x-ray does shows mild interstitial pulmonary edema. ECG shows atrial fibrillation at a rate of 109. Initial troponin was
negative. BNP was 4 elevated to 3800. He had a white count of 11.9 with hemoglobin 14.6 and a normal platelet count. Electrolytes BUN and creatinine were all normal.
She had CT imaging for stroke workup which showed few small age-indeterminate lacunar infarcts in the right cerebellum and bilateral basal ganglia. The angiogram was limited by streak artifact in the neck however there is an occlusion of the right
vertebral artery beginning at the 3, the V4 segment remains occluded for approximately 2 cm with reconstruction of flow noted distally. Finding of uncertain chronicity. Acute embolism/thrombus or dissection is possible. The common and internal
carotid arteries are patent. Basilar artery is patent. There is suspected moderate to severe stenosis of right MCA at M2
CT perfusion nondiagnostic
Case discussed with neurology at [place] who was concerned for possible acute occlusion in the V3 and V4 segments of the distal vertebral artery. Patient was also started treatment for CHF exacerbation
Medical History
Past Medical History
Past Medical History: Reports Arrhythmia (afib), Asthma, HTN and Hypercholesterolemia
Past Surgical History: Reports None
Social History
Tobacco: Former Smoker (Quit 50 years ago)
Alcohol: None
Drug: None
Personal:
Living: With Family
Family History
Family History: Not pertinent
Allergies / Home Medications
Allergies reflects when Allergies were last updated in [facility].
Home Medications with original date entered in [facility]
Allergy/Medication List:
Allergies
Allergy/AdvReac Type Severity Reaction Status Date / Time
No Known Allergies Allergy Verified 12/22/24 06:37
Home Medications
albuterol sulfate 90 mcg/actuation aerosol inhaler 2 puff inhalation R Q6HPRN PRN sob 12/22/24
apixaban 5 mg tablet (Eliquis) 5 mg PO BID Blood Clot Prevention/Tx 12/22/24
atorvastatin 40 mg tablet (Lipitor) 40 mg PO QPM High Cholesterol 12/22/24
diltiazem HCl 240 mg capsule,24 hr,extended release 240 mg PO DAILY Arrhythmia 12/22/24
fluticasone fur. 200 mcg-umeclid 62.5 mcg-vilant 25 mcg inhalat.powder (Trelegy Ellipta) 1 inh inhalation R DAILYPRN PRN sob 12/22/24
guaifenesin 600 mg tablet, extended release 12 hr (Mucinex) 600 mg PO BIDPRN PRN congestion 12/22/24
metoprolol succinate 100 mg tablet,extended release 24 hr (Toprol XL) 100 mg PO DAILY Blood Pressure 12/22/24
valsartan 320 mg-hydrochlorothiazide 12.5 mg tablet 1 tab PO DAILY Blood Pressure 12/22/24
Review of Systems
-
Constitutional: Denies Fever or Night Sweats
Respiratory: Reports Cough and Trouble Breathing
Cardiac: Denies Chest Pain, Diaphoresis or Palpitations
Abdomen/GI: Denies Abdominal Pain, Nausea, Vomiting, Diarrhea or Constipated
: Denies Dysuria or Difficulty Voiding
Musculoskeletal: Denies Edema
Neurological: Reports Other (Slurred speech)
Endocrine: Reports No Symptoms
Hematologic/Lymphatic: Reports No Symptoms
Psych: Reports No Symptoms
Physical Exam
Vital Signs
Vital Signs
Pulse Resp BP Pulse Ox
109 24 166/98 98
12/28/24 02:15 12/28/24 02:15 12/28/24 02:10 12/28/24 02:15
Physical Exam
General: Well Developed, Well Nourished and Comfortable
HEENT: NormoCephalic, Anicteric and Moist mucous membranes
Respiratory: Crackles (diffuse, most notable in bibasilar region) and Other (reduced airflow)
Cardiac: S1/S2 and Irregular Rhythm; No Murmur, Rub, Peripheral Edema or Calf Tenderness
GI: Soft, Non Tender, Non Distended, Normal Bowel Sounds and No Hepatosplenomegaly
Genito-urinary: Clear Urine
Musculoskeletal: No Clubbing, No Cyanosis and No Edema
Skin: Warm and Dry
Neuro: Awake, Alert and Oriented
Psych: Calm
Laboratory Results
-
12/28/24 00:57
12/28/24 00:57
Laboratory Results
PT 13.7 Sec (11.4-14.6) 12/28/24 00:57
INR 1.02 12/28/24 00:57
APTT 21.7 Sec (23.4-35.0) L 12/28/24 00:57
Total Bilirubin Cancelled 12/28/24 00:57
AST Cancelled 12/28/24 00:57
ALT Cancelled 12/28/24 00:57
Alkaline Phosphatase Cancelled 12/28/24 00:57
Troponin I 0.015 ng/ml 12/28/24 00:57
Troponin I Cancelled 12/28/24 00:57
Data Reviewed
-
Diagnostic Radiology: Image Personally Visualized and interpreted
CT Scan: Report Reviewed by me
Medical Tests (Nuc Med, Echo, EKG etc): Image Personally Visualized and interpreted
Lab Data: Labs Reviewed by me
Old Records: Reviewed
Impression/Plan
-
IMPRESSION:
79-year-old female with past medical history of atrial fibrillation on anticoagulation, hypertension, CHF with recent CHF exacerbation presenting to the emergency department with transient episode of slurred speech now resolved with NIHSS equals 0.
However CT scan showing a possible acute occlusions in the V3 V4 segments of the right distal vertebral artery. She is also having increasing oxygen requirement and shortness of breath with mild pulmonary edema on x-ray likely secondary to
hypotensive episode.
PLAN:
CVA/TIA - possible on basis of cardioembolic event
- Admit to IMU
-Neurochecks every hour for now per neuro
-MRI in a.m.
-Heparin drip without bolus
-Holding Eliquis
-N.p.o. for now
-Neurology consultation
CHF exacerbation -suspect secondary to acute hypertensive urgency perhaps in the setting of stroke/TIA. Patient was recently admitted for shortness of breath and emphysema. Echo showed preserved EF of around 50% with normal valves and was
unchanged from the prior echo. She has no findings suggestive of an acute ischemic process. Since I discharged the patient has been compliant with her medication. Exam shows mild crackles, elevated JVD but no peripheral edema. BNP is elevated to
over 2800
-Telemetry
- nitro paste applied for additional bp control
- lasix 40 iv given in ED, continue lasix 20 mg IV twice daily
-Continue metoprolol succinate
-Continue losartan
- daily weights and i/os
- cardiology consult
A-fib
-On heparin drip
-Continue Cardizem and metoprolol
Emphysema -no significant wheezing on examination on prednisone taper
-Continue Trelegy
-DuoNebs [id number]
-As needed albuterol
-Continue prednisone taper
DVT prophylaxis�on heparin subcu
CODE STATUS�full code
[2024-12-28 05:26] LABS: Hematocrit 42.5 % (37.0-47.0); Hemoglobin 13.8 g/dL (12.0-16.0); Mean Corp Hgb Conc. 32.5 g/dL (33.0-37.0); Mean Corpuscular Volume 93.2 fL (81.0-99.0); Platelet Count 279 10^3/uL (130-400); Red Cell Dist. Width 15.0 % (11.5-14.5)
[2024-12-28 06:25] LABS: Blood Urea Nitrogen 29 mg/dl (7-17); Calcium 9.5 mg/dl (8.4-10.2); Carbon Dioxide 30 mmol/L (22-30); Chloride 102 mmol/L (98-107); Estimated Creatinine Clearance 58 ml/min; Glucose 111 mg/dl (70-99); HDL Cholesterol 68 mg/dl; LDL Cholesterol, Calculated 65 mg/dl; Magnesium 2.3 mg/dl (1.6-2.3); Potassium 4.0 mmol/L (3.5-5.1); Sodium 139 mmol/L (135-145); Very Low Density Lipoprotein 16 mg/dl (0-30); eGFR > 60.00
[2024-12-28] MEDS: SPIRIVA RESPIMAT 2.5 MCG 2 PUFF INH (06:26)
[2024-12-28] MEDS: SYMBICORT 160/4.5 MCG INHALER 2 PUFF INH ×2 (06:26→19:30)
--- NOTE | 2024-12-28 08:08 | CON.NEURO ---
Addendum entered and electronically signed by Johnny Puente MD 12/28/24 10:08:
Studies reviewed.
I have personally examined the patient. I reviewed and agree with the P[employer]APH II ENGRAVER's Note.
My addenda:
Awake, alert, interactive. No acute distress.
Speech intact.
Follows 2-step requests w/o difficulty. No tremor.
Extra-ocular movements grossly intact.
Facial movements full and symmetric. Hearing intact to normal conversational volume.
Normal UE movements bilaterally.
Neck: full ROM.
Chest: no dyspnea
Heart: no JVD
Ext: (-) Clubbing, (-) Cyanosis, (-) Edema
IMPRESSIONS/RECOMMENDATIONS:
Abrupt onset of aphasia due to right acute ischemic stroke; patient was not a candidate for either tenecteplase or intra-arterial thrombectomy due to time out of window, use of apixaban, no evidence of clot for retrieval
Continue patient's usual anticoagulation which most likely limited the severity of currently demonstrated stroke
Continue usual atorvastatin as LDL is less than 70
Provide rehabilitation
D/W patient / family / nursing
All questions answered.
Will continue to follow patient.
Original Note:
Documented by User: Amber Mosher NP 12/28/24 09:41
Neuro Assessment/Plan
Assessment
This is a 79-year-old female with past medical history significant for atrial fibrillation on Eliquis, emphysema, hypertension presenting to [facility] on 12/28/2024 with episode of dysarthria and SOB concerning for stroke.
Head CT: No evidence of acute intracranial abnormality. ASPECT score: 10
Brain MRI:
1. Small gyriform-shaped acute ischemic infarct in the cortical ortiz matter and subcortical white matter of the posterior right frontal lobe.
2. ACUTE COMPLETE OCCLUSION of the distal extradural and proximal intradural segments of the RIGHT VERTEBRAL ARTERY. Diagnostic possibilities are (1) acute embolism or thrombosis or (2) acute dissection.
3. Small chronic ischemic infarcts in the right cerebellar hemisphere.
4. Small chronic ischemic infarct in the left frontal lobe.
5. Mild white matter leukoaraiosis in the frontal and parietal lobes.
6. Mild diffuse cerebral and cerebellar volume loss.
7. 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
Labs: Hgb A1C 6.9, LDL 65
Plan
Impression: acute ischemic infarct in the cortical ortiz matter and subcortical white matter of the posterior right frontal lobe
-goal LDL <70, current LDL 65 continue atorvastatin 40 mg nightly
-obtain carotid ultrasound
-consider vascular surgery evaluation
-continue anticoagulation for afib
-stroke education material to be provided
-continue neurochecks and NIHSS per unit guidelines
-ST evaluation
All questions encouraged and answered, plan of care discussed with Dr. Puente and patient
Consultation
Order
Date of Consultation: 12/28/24
Requesting Provider: hospitalist/Dr. Ospina
Reason for Consult: aphasia
Subjective/Objective
Subjective Data
Date of Service: December 28, 2024
This is a 79-year-old female with PMH significant for atrial fibrillation on anticoagulation, emphysema, hypertension presenting to [facility] on 12/28/2024 with episode of dysarthria and SOB. Patient was recently admitted here for CHF exacerbation and
mild COPD exacerbation. She was treated with diuretics and was discharged on p.o. Lasix on December 23. Per patient, she thinks her onset of symptoms occurred at 2330 on 12/27/2024. Upon arrival to the ED at 0030, the patient showed no further signs
of dysarthria. Initial NIHSS 0.
Initial vital signs showed a BP of 166/98 with a HR of 110 and she was satting 98% on room air. Chest x-ray does shows mild interstitial pulmonary edema. ECG shows atrial fibrillation at a rate of 109. Initial troponin was negative. BNP was 4
elevated to 3800. He had a white count of 11.9 with hemoglobin 14.6 and a normal platelet count. Electrolytes BUN and creatinine were all normal. She had CT imaging for stroke workup which showed few small age-indeterminate lacunar infarcts in the
right cerebellum and bilateral basal ganglia. The angiogram was limited by streak artifact in the neck however there is an occlusion of the right vertebral artery beginning at the 3, the V4 segment remains occluded for approximately 2 cm with
reconstruction of flow noted distally. Finding of uncertain chronicity. Acute embolism/thrombus or dissection is possible. The common and internal carotid arteries are patent. Basilar artery is patent. There is suspected moderate to severe
stenosis of right MCA at M2. CT perfusion nondiagnostic
Case was discussed with neurology at [place] early this morning. There was concern for possible acute occlusion in the V3 and V4 segments of the distal vertebral artery. Discussed with Dr. Roblero from neurology. He recommended initiating heparin
therapy without a bolus, conducting neurochecks every hour, and scheduling an MRI for the morning.
Patient assessed at bedside with NIHSS 1 for LUE drift. She states her speech is back to normal. Her brain MRI showed an acute ischemic infarct in the right frontal lobe.
Objective Data
Vital Signs
Temp Pulse Resp BP Pulse Ox
97.6 F 97 15 140/102 98
12/28/24 06:40 12/28/24 06:30 12/28/24 06:30 12/28/24 06:43 12/28/24 06:30
Lab Results
12/28/24 05:07
12/28/24 05:07
PT 13.7 Sec (11.4-14.6) 12/28/24 00:57
INR 1.02 12/28/24 00:57
APTT Cancelled 12/28/24 08:00
Sodium 139 mmol/L (135-145) 12/28/24 05:07
Potassium 4.0 mmol/L (3.5-5.1) 12/28/24 05:07
BUN 29 mg/dl (7-17) H 12/28/24 05:07
Glucose 111 mg/dl (70-99) H 12/28/24 05:07
Calcium 9.5 mg/dl (8.4-10.2) 12/28/24 05:07
Sln-M-Mnsneehiikx Pept 3340 pg/ml 12/28/24 00:57
LDL Cholesterol, Calc 65 mg/dl 12/28/24 05:07
Patient Allergies
No Known Allergies Allergy (Verified 12/28/24 00:30)
CVA Assessment
Onset of Stroke Symptoms
Onset of symptoms known: Yes
Date of onset of symptoms: 12/27/24
Time of onset of symptoms: 23:30
Time pt last seen normal is known: Yes
Date last time pt seen normal: 12/27/24
Time last time pt seen normal: 23:30
NIH Stroke Score
Level of Consciousness: 0 - Alert
LOC Questions: 0-Answers both correctly
LOC Commands: 0-Performs both correctly
Best Horizontal Gaze: 0-Normal
Visual James: 0=Normal, no visual loss
Facial Palsy: 0=Normal, symmetrical
Motor - Right Arm: 0=No drift 10 seconds
Motor - Left Arm: 1=Drift < 10 seconds
Motor - Right Le-No drift 5 seconds
Motor - Left Le-No drift 5 seconds
Limb Ataxia: 0-Absent
Sensation: 0-Normal
Best Language: 0-No aphasia
Dysarthria: 0-Normal
Extinction and Inattention: 0-No abnormality
NIH Total Score:: 1
Tenecteplase Contraindications
Inclusion and Exclusion criteria reviewed: Yes
Reasons for NON-Tx with Thrombolytics ABSOLUTE Exclusions: Patient taking oral anticoagulant and last dose within 48 hours
IAT Contraindications: NIHSS < 6
Modified Mclean Score (MRS)
-
Modified Mclean Scale (mRS): No significant disability. Able to carry out usual activities.
Score: 1
Review of Systems
-
History Source: Patient
All other systems: Reviewed and negative
Physical Exam
-
General: No Apparent Distress and Comfortable
Eyes: PERRLA
HEENT: Normocephalic, Atraumatic and Anicteric
Neck: Full Range of Motion
Respiratory: Other (on O2 nasal cannula)
Cardiac: No JVD
GI: Non-distended
Skin: Unremarkable
Extremities: No Clubbing, No Cyanosis and No Edema
Psych: Unremarkable
Extended Neurological Exam
Mood & Affect: Mood Unremarkable
Attention Span & Concentration: Awake, Interactive and No Difficulty with 2 Step Request
Memory: Vague
Tremor: Hand Tremor Absent and Head Tremor Absent
Involuntary Movement: None
Speech: Quality Unremarkable, Quantity Unremarkable and Rate of Production Unremarkable
Cranial Nerve II: Left Eye: Visual James Intact
Cranial Nerve II: Right Eye: Visual James Intact
Cranial Nerves III, IV, : Extraocular Movement: Extraocular Movement Full in all Directions
Cranial Nerve VII: Facial Symmetry: Normal Facial Symmetry
Cranial Nerve VIII: Hearing: Unremarkable Hearing to Normal Conversational Volume
Cranial Nerve XI: Shoulder Shrug: Unremarkable
Muscle Strength, Overall: Full Throughout
Pronator Drift: Drift in Left Upper Extremity
Deep Tendon Reflexes: Unremarkable Throughout
Touch Sensation: Double Simultaneous Stimulation Unremarkable
Coordination: Opxhsz-ybbn-cqwxms Testing Unremarkable and Reaches for Objects without Difficulty
Data Reviewed
-
CT-A: Report Reviewed and Image Reviewed
CT-Perfusion: Report Reviewed and Image Reviewed
CT Head: Report Reviewed and Image Reviewed
MRI Head: Pending
Labs: Report Reviewed
Lipid Profile: Report Reviewed
HgbA1C: Report Reviewed
Reviewed with: Physician and Patient
Old Records: Summarized
Medications
-
Active Medications
Generic Name Dose Route Start Last Admin
Trade Name Freq PRN Reason Stop Dose Admin
Acetaminophen 650 mg 12/28/24 04:30
Acetaminophen 650 Mg Rectal Suppository RECTAL 01/25/25 04:29
Q4HPRN PRN
ALEXANDER, mild pain, or temp >100.4F
Acetaminophen 650 mg 12/28/24 04:30
Acetaminophen 325 Mg Tablet PO 01/25/25 04:29
Q4HPRN PRN
ALEXANDER, mild pain, or temp >100.4F
Albuterol 2 puff 12/28/24 04:30
Albuterol Hfa [90 Mcg/Dose] Inhaler INH
R Q6HPRN PRN
sob
Protocol
Atorvastatin Calcium 40 mg 12/28/24 18:00
Atorvastatin (Lipitor) 40 Mg Tablet PO 01/25/25 17:59
QPM NURIA
Budesonide/Formoterol Fumarate 2 puff 12/28/24 08:00 12/28/24 06:26
Symbicort Inhaler 160/4.5 INH 01/25/25 07:59 2 puff
R BID NURIA Administration
Protocol
Diltiazem HCl 240 mg 12/28/24 08:00
Diltiazem 240 Mg Extended Release (24 H) Capsule PO 01/25/25 07:59
DAILY NURIA
Furosemide 20 mg 12/28/24 08:00
Furosemide 20 Mg (10 Mg/Ml) 2 Ml Vial IV 01/25/25 07:59
BID AT 0800,1600 NURIA
Guaifenesin 600 mg 12/28/24 04:30
Guaifenesin 600 Mg Extended Release Tablet PO 01/25/25 04:29
BIDPRN PRN
congestion
Heparin Sodium 25,000 units in 250 mls @ 0 mls/hr 12/28/24 03:00 12/28/24 02:37
Heparin 00345 Units/250 Ml IV 250 mls
PER PROTOCOL NURIA Administration
Protocol
Per Protocol
Metoprolol Succinate 100 mg 12/28/24 08:00
Metoprolol 100 Mg Extended Release Tablet PO 01/25/25 07:59
DAILY NURIA
Prednisone 40 mg 12/28/24 08:00
Prednisone 20 Mg Tablet PO 12/31/24 07:59
DAILY NURIA
Prednisone 30 mg 12/31/24 08:00
Prednisone 10 Mg Tablet PO 01/03/25 07:59
DAILY NURIA
Sodium Chloride 0 flush 12/28/24 05:00
Sodium Chloride 0.9% (Flush) Syringe IV 01/25/25 04:59
PER PROTOCOL NURIA
Tiotropium [place] 2 puff 12/28/24 08:00 12/28/24 06:26
Tiotropium (Spiriva Respimat) 2.5 Mcg Inhaler INH 01/25/25 07:59 2 puff
R DAILY NURIA Administration
Protocol
Valsartan 320 mg 12/28/24 08:00
Valsartan 160 Mg Tablet PO 01/25/25 07:59
DAILY NURIA
Home Medications
�Medication �Instructions �Recorded
albuterol sulfate 90 mcg/actuation 2 puff inhalation R Q6HPRN PRN sob 12/22/24
aerosol inhaler
apixaban 5 mg tablet (Eliquis) 5 mg PO BID Blood Clot 12/22/24
Prevention/Tx
atorvastatin 40 mg tablet (Lipitor) 40 mg PO QPM High Cholesterol 12/22/24
diltiazem HCl 240 mg capsule,24 240 mg PO DAILY Arrhythmia 12/22/24
hr,extended release
guaifenesin 600 mg tablet, 600 mg PO BIDPRN PRN congestion 12/22/24
extended release 12 hr (Mucinex)
metoprolol succinate 100 mg 100 mg PO DAILY Blood Pressure 12/22/24
tablet,extended release 24 hr
(Toprol XL)
fluticasone fur. 200 mcg-umeclid 1 inh inhalation DAILY sob #60 ea 12/23/24
62.5 mcg-vilant 25 mcg
inhalat.powder (Trelegy Ellipta)
furosemide 20 mg tablet (Lasix) 20 mg PO DAILY 30 days #30 tabs 12/23/24
prednisone 10 mg tablet See Rx Instructions .Route 12/23/24
.COMPLEX #45 tabs
valsartan 320 mg tablet 320 mg PO DAILY #30 tabs 12/23/24
Past History
Past History
ED Past Medical History: Arrthythmia, Asthma and HTN
ED Past Surgical History: None
Family/Social History
Tobacco: Non-smoker
Alcohol: None
Drug: None
Personal:
Living: with family

Documented by User: Johnny Puente MD 12/28/24 09:59
CVA Assessment
NIH Stroke Score
NIH Total Score:: 1
Modified Mclean Score (MRS)
-
Score: 1
[2024-12-28] MEDS: LASIX 20 MG IV ×2 (08:35→16:48)
[2024-12-28 08:37] LABS: APTT 53.1 Sec (23.4-35.0)
[2024-12-28 08:38] LABS: Glycohemoglobin (HgbA1c) 6.9 % (4.0-5.6)
[2024-12-28] MEDS: CARDIZEM CD 240 MG PO (08:40)
[2024-12-28] MEDS: DELTASONE 40 MG PO (08:40)
[2024-12-28] MEDS: DIOVAN 320 MG PO (08:40)
[2024-12-28] MEDS: TOPROL XL 100 MG PO (08:41)
--- NOTE | 2024-12-28 09:58 | PTOTSP ---
CHIEF DATA OFFICER Evaluations
Oral/pharyngeal swallowing within functional limits based on clinical bedside swallowing evaluation.
No dysarthria observed. Patient presents with signs concerning for subtle higher level auditory comprehension (i.e., complex language) and verbal expression deficits (i.e., word finding) and a cognitive linguistic impairment (i.e., SLUMS score
=15/30 where 27 or higher is normal; impairments with memory ,executive function, processing speed, word fluency).
Recommend:
1. Regular, Thin Liquids
2. General aspiration precautions
3. Language and cognitive linguistic evaluation/tx at the acute care level and after D/C from the acute care setting.
--- NOTE | 2024-12-28 10:03 | CM ---
CM reviewed chart and met with pt bedside in ED. Pt lives with her in 2 story home, no ERIC. Has first floor BR/full BA.
Independent in ADLs, personal care and ambulation at baseline. Uses walker for long distances. Also has cane, shower chair and rails, CPAP and Home O2, wears 2L NC, has concentrator, tank and portable concentrator. Pt unsure of O2 provider but
believes they are in [place].
Confirms prescription coverage.
No hx VN or SNF.
PCP: Eduardo Mccain
Pharmacy: [facility] in [place]
CM will continue to follow for any discharge planning needs.
--- NOTE | 2024-12-28 12:19 | CON.CAR ---
Addendum entered and electronically signed by Timoteo Adams MD 12/28/24 15:22:
I saw and examined the patient.
The INTERSTATE BUS DISPATCHER or PA's note was reviewed and I agree with the note.
Comment: General: Well developed, well nourished in NAD.
Neck: Supple, no JVD, HJR, carotids +2 B/L, no bruits bilaterally.
Heart: Non displaced PMI, irregular, no murmurs, No S3, S4, no rubs.
Lungs: Scattered rhonchi
Abdomen: Normal bowel sounds, soft, non-tender, non-distended.
Extremities: No clubbing, cyanosis or edema bilaterally.
Neuro: Grossly nonfocal, awake, alert and oriented x3.
Jes has a history of permanent A-fib on chronic Eliquis, hypertension, hyperlipidemia, carotid disease status post CEA 2017, COPD. She was originally followed at [facility] and transferred to [facility]. She was admitted to an outside
hospital in August 2024 for CHF/COPD. She was admitted to [facility] in November 2024 for flash pulmonary edema and hypertensive emergency which improved with Lasix and steroids. She was well the day prior to admission and walked several hours without
issues. She woke up and noticed slurred speech lasting approximately 30 minutes. She apparently has shortness of breath as well with these episode. In ER symptoms improved. Brain MRI revealed evidence of chronic ischemic bilateral infarcts and
occluded occlusion of the right vertebral artery. She received IV Lasix in the ER and feels better at present. Cardiology is consulted for acute diastolic CHF.
Will treat CHF with IV Lasix. Await neurology approval to restart Eliquis. Will do workup for secondary hypertension.
Original Note:
Consultation
Consultation Request
Date/Time Consultation Performed: 12/28/24
Requesting Provider: Dr. Rodríguez
Performing Provider: Ashley Anderson PA-C for Dr. Adams
Reason for Consultation: CHF, CVA
Medical History
-
Chief Complaint: slurred speech
History of Present Illness:
Patient is an 79 yo F with PMH of permanent afib on chronic eliquis, HTN, HLD, carotid stenosis s/p CEA 2017, COPD who had admission to OSH 09/24-09/26/24 for CHF/COPD. She then was admitted to [facility] 11/2024 for flash pulm edema, HTN emergency and
rapidly improved with lasix and steroids. She states she was doing well, yesterday walked around a flea market with her without issue for several hours. She then states around 11PM she was sleeping and her came in and was going to
help her transition from supp O2 to CPAP and noted she had slurred speech so called ambulance. She also reports noting SOB associated with this. Both symptoms improved in ER and she states she feels at baseline. Brain MRI showed evidence of chronic
ischemic infarcts B/L and acute occlusion of R vertebral artery. She was given dose of IV lasix in ER as well and breathing is improved. BP was again elevated on arrival however now improving. Her reports over the last several months she has
been forgetting things more frequently and states there have been multiple times where he has asked if she has taken her meds and she says yes but he finds the pills on the counter. She reports there was an issue with one of her meds upon DC, but
cannot further specify so unclear what she was taking.
PMH:
admission to [facility] 12/20/24 for acute CHF/COPD
admission to [facility] in [place] 09/24 - 09/26/2024 for COPD exacerbation
Permanent atrial fibrillation
Chronic anticoagulation with Eliquis
Hypertension
Hyperlipidemia
Carotid stenosis status post endarterectomy in 2016
Lung disease
GERD
Past Medical History
Past Medical History: Other (in HPI)
Social History
Tobacco: Former Smoker (remote)
Personal:
Living: With Family
Employment: Retired
Family History
Family History: Reviewed & Not Pertinent
Allergies / Home Medications
Allergy/AdvReac Type Severity Reaction Status Date / Time
No Known Allergies Allergy Verified 12/28/24 00:30
�Medication �Instructions �Recorded �Confirmed �Type
albuterol sulfate 90 mcg/actuation 2 puff inhalation R Q6HPRN PRN sob 12/22/24 12/28/24 History
aerosol inhaler
apixaban 5 mg tablet (Eliquis) 5 mg PO BID Blood Clot 12/22/24 12/28/24 History
Prevention/Tx
atorvastatin 40 mg tablet (Lipitor) 40 mg PO QPM High Cholesterol 12/22/24 12/28/24 History
diltiazem HCl 240 mg capsule,24 240 mg PO DAILY Arrhythmia 12/22/24 12/28/24 History
hr,extended release
guaifenesin 600 mg tablet, 600 mg PO BIDPRN PRN congestion 12/22/24 12/28/24 History
extended release 12 hr (Mucinex)
metoprolol succinate 100 mg 100 mg PO DAILY Blood Pressure 12/22/24 12/28/24 History
tablet,extended release 24 hr
(Toprol XL)
fluticasone fur. 200 mcg-umeclid 1 inh inhalation DAILY sob #60 ea 12/23/24 12/28/24 Rx
62.5 mcg-vilant 25 mcg
inhalat.powder (Trelegy Ellipta)
furosemide 20 mg tablet (Lasix) 20 mg PO DAILY 30 days #30 tabs 12/23/24 12/28/24 Rx
prednisone 10 mg tablet See Rx Instructions .Route 12/23/24 12/28/24 Rx
.COMPLEX #45 tabs
valsartan 320 mg tablet 320 mg PO DAILY #30 tabs 12/23/24 12/28/24 Rx
Review of Systems
-
History Source: Patient and Family
All other systems: Negative unless noted
Physical Exam
Vital Signs
Temp Pulse Resp BP Pulse Ox
97.6 F 93 20 160/104 94
12/28/24 06:40 12/28/24 11:30 12/28/24 11:30 12/28/24 11:00 12/28/24 11:30
Lab Results
12/28/24 05:07
12/28/24 05:07
Troponin I 0.015 ng/ml 12/28/24 00:57
Troponin I Cancelled 12/28/24 00:57
Bcq-B-[id number] Pept 3340 pg/ml 12/28/24 00:57
Physical Exam
General: No Apparent Distress, Comfortable and Other (forgetful at times)
HEENT: Normocephalic, Anicteric and Moist Mucous Membranes
Respiratory: Clear and Non Labored Respirations
Cardiac: S1/S2 and Irregular Rhythm
GI: Soft, Non Tender, Non Distended and Normal Bowel Sounds
Musculoskeletal: No Clubbing, No Cyanosis and No Edema
Skin: Warm and Dry
Neuro: Awake, Alert and Oriented (to self, place)
Impression / Plan
-
Primary Recreation Teacher: Dr. Adams
Assessment:
Presentation with slurred speech, resolved
SOB
R vertebral occlusion consistent with acute CVA
Chronic ischemic infarcts by brain MRI
HTN emergency
Admission to [facility] 12/20- for flash pulm edema, HTN emergency
Admission to [facility] in [place] 09/24 - 09/26/2024 for COPD exacerbation
COPD
Permanent atrial fibrillation
Chronic anticoagulation with Eliquis
ILD
Hypertension
Hyperlipidemia
Carotid stenosis status post endarterectomy in 2017
GERD
Remote former smoker
ECHO 10/18/24: EF 50 to 55%, mild concentric LVH, severe left atrial dilation and right atrial dilation, moderate MR, mild AI, moderate TR, PAP 40 to 45 mmHg
Plan:
-Patient with recent admission for flash pulm edema and HTN emergency now presents back with slurred speech and found to have acute R vertebral artery occlusion by brain MRI. also with evidence of chronic ischemic infarcts by imaging.
-also with HTN emergency again on arrival
-proBNP higher than last admission at 3340. CXR with evidence of mild pulm edema.
-discussed with patient and at bedside. concerned patient forgetting things including meds in last several months. noncompliance could be etiology of HTN, flash pulm edema, and CVA. based on this would opt not to change OAC as doubt
eliquis failure as etiology of acute CVA.
-will monitor BPs while here. continue OP toprol, cardizem, and valsartan as ok per neuro in setting of acute CVA.
-diurese with IV lasix 20mg BID. Cr stable at 0.7.
-resume eliquis when ok per neurology
-recent echo with results as above, reviewed
-follow HRs in afib, permanent. reviewed admission EKG
-discussed with that he should take over patient's medications moving forward and he is agreeable to do so. he is asking for evaluation of her mental status due to recent increase in forgetfulness.
-continue ST/PT/OT as needed. patient reports feeling back to baseline
-trop 0.015. would consider for ischemic evaluation to rule out underlying ischemia as cause of her HTN and flash pulm edema.
-LDL 65. continue statin
-hgbA1c 6.9%
-also has degree of known lung disease
-d/w neurology and hospitalist via TT
Data Reviewed
-
EKG: Tracing Personally Visualized and interpreted
Radiology: Report Reviewed by me
MRI: Report Reviewed by me, Discussed with Patient and Discussed with Family
Medical Tests (Nuc Med, Echo etc): Report Reviewed by me
Labs: Labs Reviewed by me
Old Records: Reviewed
[2024-12-28] MEDS: ELIQUIS 5 MG PO ×2 (12:24→20:56)
--- NOTE | 2024-12-28 12:49 | W.PN.HOSP.TC ---
Today's Communication/Plan
-
Continue diuretics
Cardiology consult
Assessment / Plan
Assessment / Plan
Gen-AAOx3, NAD
HEENT-NC, AT, anicteric, clear oral mm
Neck-supple
CV-reg, no M, +S1/S2
Lungs-clear B/L
Abd-soft, NT, ND
Ext-no edema
Musculoskeletal-no cyanosis, clubbing
Skin-warm and dry
Neuro-grossly non-focal
Psych-calm, cooperative
Hypertensive emergency -presentation with high blood pressure in the setting of acute stroke as well as acute heart failure exacerbation.
Initial blood pressure 200/102, recent blood pressure 160/104.
At home she is on diltiazem 240 mg daily, Lasix 20 mg daily, Toprol-XL 100 mg daily, valsartan 320 mg daily.
Unclear if she has ever had a workup for secondary hypertension. Will send off PAC/PRA ratio.
Hopefully IV diuretics will assist with blood pressure management. Could add nifedipine XL if needed.
Acute ischemic stroke -presentation with isolated transient dysarthria, first noted on December 27 evening. Dysarthria resolved prior to presentation to the emergency room.
MRI brain and CTA head/neck reviewed, shows small acute ischemic infarct in the cortical ortiz matter and subcortical white matter of the posterior right frontal lobe.
In addition, small chronic ischemic infarcts in the right cerebellar hemisphere, left frontal lobe. Mild white matter leukoaraiosis in the frontal and parietal lobes. Diffuse mild cerebral and cerebellar volume loss. Acute complete occlusion of
the right vertebral artery. No evidence of carotid stenosis bilaterally.
Not revascularization candidate given chronic anticoagulation with Eliquis.
Discussed with neurology service. Okay to start lowering blood pressure. Okay to transition from IV heparin back to Eliquis.
Seen by speech therapy, regular diet with thin liquids recommended.
Seen by PT/OT, home health recommended.
Acute on chronic heart failure with preserved EF -triggered by hypertensive emergency likely. Continue IV Lasix. Unclear compliance with home meds, patient cannot recall doses of her meds and cannot recall if she has missed any doses. She does
use a pillbox and administers her own medications. Recommend closer supervision by family on discharge.
Last echocardiogram was 12/22/2024, LVEF 57%, mild to moderate MR, moderate TR. No significant change compared to September 2024 echo.
Consult cardiology, known to Dr. Adams.
DM2 without hyperglycemia -presumably new diagnosis of diabetes. Hemoglobin A1c 6.9%. Glucose 111 this morning. Recommend lifestyle changes including diet, exercise, weight loss. Close follow-up with PCP after discharge.
Permanent atrial fibrillation -transition back to [place], [place] IV heparin.
COPD without exacerbation -continue inhalers.
Interstitial lung disease -continue prednisone taper that was initiated on discharge last week. She has home oxygen and only uses it as needed.
Hyperlipidemia -atorvastatin.
History of carotid stenosis -s/p CEA 2016.
Obesity due to excess calories
Full code
Anticipated Discharge: 24 - 48 hours
Subjective/Interval History
-
Date of Service: December 28, 2024
Patient seen and examined. Feels much better. No complaints.
Objective Data
-
Labs:
Laboratory Results
12/28/24 12/28/24 12/28/24
00:57 05:07 08:00
WBC 11.9 H 12.2 H
Hgb 14.6 13.8
Hct 45.9 42.5
Plt Count 290 D 279
PT 13.7
INR 1.02
APTT 21.7 L Cancelled
Sodium 141 139
Potassium 4.0
Chloride 108 H 102
Carbon Dioxide 27 30
BUN 33 H 29 H
Creatinine 0.7 0.7
Glucose 95 111 H
Calcium 9.9 9.5
Total Bilirubin Cancelled
AST Cancelled
ALT Cancelled
Alkaline Phosphatase Cancelled
12/28/24 12/28/24
08:16 12:25
WBC
Hgb
Hct
Plt Count
PT
INR
APTT 53.1 H Pending
Sodium
Potassium
Chloride
Carbon Dioxide
BUN
Creatinine
Glucose
Calcium
Total Bilirubin
AST
ALT
Alkaline Phosphatase
Vital Signs:
Vital Signs
Temp Pulse Resp BP Pulse Ox
97.6 F 93 20 160/104 94
12/28/24 06:40 12/28/24 11:30 12/28/24 11:30 12/28/24 11:00 12/28/24 11:30
I&O
12/27/24 12/28/24 12/29/24
06:59 06:59 06:59
Output Total 3000 / 3000
Balance -3000 / -3000
Review of Systems
-
History Source: Patient
All other systems: Reviewed and negative
[2024-12-28 12:50] LABS: APTT 45.7 Sec (23.4-35.0)
--- NOTE | 2024-12-28 13:15 | PTCARENOTE ---
12/28- Patient transferred and oriented to unit without issue. Telemetry #18. Currently NSR. Current NIH=0. Patient is fully mobile with standby-assist walking without walker. Skin CDI. Patient denies any current needs.
[2024-12-28] MEDS: LIPITOR 40 MG PO (16:48)
[2024-12-28 21:25] LABS: Glucose - Point of Care 160 mg/dl (70-99)
[2024-12-29 03:50] VITALS: BP 153/85
[2024-12-29 05:29] VITALS: BMI 30.7
[2024-12-29 07:06] LABS: Glucose - Point of Care 107 mg/dl (70-99)
[2024-12-29] MEDS: DIOVAN 320 MG PO (07:39)
[2024-12-29] MEDS: CARDIZEM CD 240 MG PO (07:39)
[2024-12-29] MEDS: DELTASONE 40 MG PO (07:39)
[2024-12-29] MEDS: TOPROL XL 100 MG PO (07:39)
[2024-12-29] MEDS: ELIQUIS 5 MG PO (07:39)
[2024-12-29] MEDS: LASIX 20 MG IV (07:39)
[2024-12-29 08:00] VITALS: BP 153/84
[2024-12-29] MEDS: SPIRIVA RESPIMAT 2.5 MCG 2 PUFF INH (08:10)
[2024-12-29] MEDS: SYMBICORT 160/4.5 MCG INHALER 2 PUFF INH (08:11)
--- NOTE | 2024-12-29 09:07 | W.PN.CARDCBS ---
Addendum entered and electronically signed by Ziggy Jeffery DO 12/29/24 13:47:
I saw and examined the patient.
The Stockroom Clerk's note was reviewed and I agree with the note.
Comment:
Plan:
Discussed medication compliance with patient and family at bedside.
Discussed the importance of not missing medications as this can increase her stroke risk especially being off anticoagulation.
Continue anticoagulation long-term given CVA.
Appears euvolemic, continue Lasix as an outpatient at increased dose of 40 mg daily at discharge. Monitor daily weights as an outpatient.
Echo reviewed with patient from December 22, 2024 showing EF 57% with mild to moderate MR, moderate TR with pulmonary artery pressure 45 mmHg.
Consider outpatient ischemic evaluation given heart failure and CVA.
Stable from a cardiac standpoint.
Discussed with the patient and family at bedside.
Discussed with primary service.
Original Note:
Today's Communication / Plan
-
Increase Lasix to 40 mg PO daily upon d/c
Cardiology f/u being arranged
Impression / Plan
-
Primary Aircraft Steel Fabricator: Dr. Adams
Assessment:
Presentation with SOB, slurred speech, resolved 12/28/24
Right vertebral occlusion consistent with acute CVA 12/28/24
Chronic ischemic infarcts by brain MRI
HTN emergency
Acute HFpEF
Recent admission to [facility] for flash pulm edema, HTN emergency 12/20 to 12/22/24
Admission to [facility] in [place] for COPD exacerbation 09/24 to 09/26/2024
COPD
Permanent atrial fibrillation
Chronic anticoagulation with Eliquis
ILD
Hypertension
Hyperlipidemia
Carotid stenosis status post endarterectomy in 2017
GERD
Remote former smoker
ECHO 10/18/24: EF 50 to 55%, mild concentric LVH, severe left atrial dilation and right atrial dilation, moderate MR, mild AI, moderate TR, PAP 40 to 45 mmHg
Plan:
-Patient with recent admission for flash pulm edema and HTN emergency now presents back with slurred speech and found to have acute R vertebral artery occlusion by brain MRI. also with evidence of chronic ischemic infarcts by imaging. Also with HTN
emergency again on arrival
-MRI of the brain report reviewed by me and summarized here on 12/29/2024 shows that there was acute complete occlusion of the distal extradural and proximal intradural segments of the right vertebral artery suggesting acute embolism or thrombosis or
even acute dissection. There are also small chronic ischemic infarcts in the right cerebellar hemisphere and the left frontal lobe.
-Patient with known permanent A-fib and is chronically on Eliquis 5 mg BID, but there are concerns that there have been missed doses which are all accidental and might be related to some emerging memory issues.
-Patient reports her is going to be more involved with making sure that she takes her medications and that he is a dedicated and involved caregiver who takes excellent care of her.
-Despite Lasix 20 mg IV BID diuresis, the patient's weight is up 2 lbs on 12/29/2024, VS reviewed by me. Despite this patient denies any increased SOB and overall reports feeling better compared to admission.
-Patient was taking Lasix 20 mg PO daily prior to admission and we recommend Lasix 40 mg PO daily upon discharge to home.
-Outpatient dose of Toprol-XL 100 mg daily continued
-Outpatient dose of valsartan 320 mg daily has been continued
-Outpatient dose of Cardizem CD 240 mg daily has been continued
-Will arrange for cardiology follow-up in 4 to 6 weeks and we can consider stress testing at that time for troponin that peaked at 0.015 in the setting of HTN emergency and flash pulmonary edema.
-LDL 65. Outpatient dose of atorvastatin 40 mg daily has been continued
-hgbA1c 6.9% and patient has a new diagnosis of type 2 diabetes. She is going to follow-up with her PCP for management. Agree with hospitalist recommendation of [place] as an outpatient.
-Patient stable for discharge to home from a cardiac standpoint and follow-up being arranged.
Progress Note - Aircraft Steel Fabricator
Subjective
Date of Service: December 29, 2024
She feels well, no pains of SOB
Objective
Labs:
12/28/24 05:07
Labs
Hgb 13.8 g/dL (12.0-16.0) 12/28/24 05:07
Hct 42.5 % (37.0-47.0) 12/28/24 05:07
Plt Count 279 10^3/uL (130-400) 12/28/24 05:07
PT 13.7 Sec (11.4-14.6) 12/28/24 00:57
INR 1.02 12/28/24 00:57
APTT 45.7 Sec (23.4-35.0) H 12/28/24 12:25
Sodium 139 mmol/L (135-145) 12/28/24 05:07
Potassium 4.0 mmol/L (3.5-5.1) 12/28/24 05:07
BUN 29 mg/dl (7-17) H 12/28/24 05:07
Creatinine 0.7 mg/dL (0.6-1.0) 12/28/24 05:07
Glucose 111 mg/dl (70-99) H 12/28/24 05:07
Troponins
12/28/24 12/28/24
00:57 00:57
Troponin I 0.015 Cancelled
Vital Signs and I&O:
Vital Signs
Temp Pulse Resp BP Pulse Ox
97.8 F 63 16 153/84 96
12/29/24 08:00 12/29/24 08:10 12/29/24 08:10 12/29/24 08:00 12/29/24 08:10
Vital Signs
Temp Pulse Resp BP Pulse Ox
97.8 F 63 16 153/84 96
12/29/24 08:00 12/29/24 08:10 12/29/24 08:10 12/29/24 08:00 12/29/24 08:10
Intake & Output
12/27/24 12/28/24 12/29/24 12/30/24
06:59 06:59 06:59 06:59
Intake Total 600 / 600
Output Total 3000 / 3000 300 / 300
Balance -3000 / -3000 300 / 300
Physical Exam
Physical Exam
GEN: AAOx3
LUNGS: RA, no wheezes
CV: Afib on tele. Irreg, S1/S2, 1/6 murmur
NEURO: No focal or lateralizing weakness
[2024-12-29 09:28] LABS: Blood Urea Nitrogen 24 mg/dl (7-17); Calcium 9.7 mg/dl (8.4-10.2); Carbon Dioxide 33 mmol/L (22-30); Chloride 95 mmol/L (98-107); Estimated Creatinine Clearance 49 ml/min; Glucose 242 mg/dl (70-99); Potassium 4.2 mmol/L (3.5-5.1); Sodium 137 mmol/L (135-145); eGFR > 60.00
--- NOTE | 2024-12-29 10:43 | W.PN.HOSP.TC ---
Addendum entered and electronically signed by Eliot Rodríguez DO 12/29/24 12:00:
Cleared for discharge by cardiology.
Will need outpatient follow-up with PCP, cardiology, neurology.
Left a voicemail for patient's . Updated nursing.
Original Note:
Today's Communication/Plan
-
Add Farxiga
Assessment / Plan
Assessment / Plan
Gen-AAOx3, NAD
HEENT-NC, AT, anicteric, clear oral mm
Neck-supple
CV-reg, no M, +S1/S2
Lungs-clear B/L
Abd-soft, NT, ND
Ext-no edema
Musculoskeletal-no cyanosis, clubbing
Skin-warm and dry
Neuro-grossly non-focal
Psych-calm, cooperative
Hypertensive emergency/essential hypertension -presentation with high blood pressure in the setting of acute stroke as well as acute heart failure exacerbation.
Initial blood pressure 200/102, recent blood pressure 160/104.
At home she is on diltiazem 240 mg daily, Lasix 20 mg daily, Toprol-XL 100 mg daily, valsartan 320 mg daily.
Unclear if she has ever had a workup for secondary hypertension. Will send off PAC/PRA ratio.
Blood pressure improving. Hypertensive emergency resolved.
Acute ischemic stroke -presentation with isolated transient dysarthria, first noted on December 27 evening. Dysarthria resolved prior to presentation to the emergency room.
MRI brain and CTA head/neck reviewed, shows small acute ischemic infarct in the cortical ortiz matter and subcortical white matter of the posterior right frontal lobe.
In addition, small chronic ischemic infarcts in the right cerebellar hemisphere, left frontal lobe. Mild white matter leukoaraiosis in the frontal and parietal lobes. Diffuse mild cerebral and cerebellar volume loss. Acute complete occlusion of
the right vertebral artery. No evidence of carotid stenosis bilaterally.
Not revascularization candidate given chronic anticoagulation with Eliquis.
Discussed with neurology service.
Seen by speech therapy, regular diet with thin liquids recommended.
Seen by PT/OT, home health recommended.
Acute on chronic heart failure with preserved EF -triggered by hypertensive emergency likely. Continue IV Lasix. Unclear compliance with home meds, patient cannot recall doses of her meds and cannot recall if she has missed any doses. She does
use a pillbox and administers her own medications. Recommend closer supervision by family on discharge.
Last echocardiogram was 12/22/2024, LVEF 57%, mild to moderate MR, moderate TR. No significant change compared to September 2024 echo.
Cardiology following. Weight coming down.
She denies shortness of breath.
DM2 without hyperglycemia -new diagnosis of diabetes. Hemoglobin A1c 6.9%. Glucose 242 this morning. Recommend lifestyle changes including diet, exercise, weight loss. Close follow-up with PCP after discharge.
Farxiga would be a good option for her given heart failure. Discussed with patient and family.
Seen by client partner for diabetic diet.
Permanent atrial fibrillation -continue Eliquis. Suspect patient was noncompliant with doses at home.
COPD without exacerbation -continue inhalers.
Interstitial lung disease -continue prednisone taper that was initiated on discharge last week. She has home oxygen and only uses it as needed.
Hyperlipidemia -atorvastatin.
History of carotid stenosis -s/p CEA 2016.
Obesity due to excess calories
Full code
Dispo -anticipate discharge when cleared by cardiology.
Family updated at the bedside.
Anticipated Discharge: Within 24 hours
Subjective/Interval History
-
Date of Service: December 29, 2024
Patient seen and examined. No complaints.
Objective Data
-
Labs:
Laboratory Results
12/29/24
08:24
Sodium 137
Potassium 4.2
Chloride 95 L
Carbon Dioxide 33 H
BUN 24 H
Creatinine 0.8
Glucose 242 H
Calcium 9.7
Vital Signs:
Vital Signs
Temp Pulse Resp BP Pulse Ox
97.8 F 63 16 153/84 96
12/29/24 08:00 12/29/24 08:10 12/29/24 08:10 12/29/24 08:00 12/29/24 08:10
I&O
12/28/24 12/29/24 12/30/24
06:59 06:59 06:59
Intake Total 600 / 600
Output Total 3000 / 3000 300 / 300
Balance -3000 / -3000 300 / 300
Review of Systems
-
History Source: Patient
All other systems: Reviewed and negative
[2024-12-29 11:08] LABS: Glucose - Point of Care 114 mg/dl (70-99)
[2024-12-29 11:13] VITALS: BP 128/87
[2024-12-29] MEDS: FARXIGA 10 MG PO (11:27)
--- NOTE | 2024-12-29 12:00 | W.DS.TRANS ---
DC Summary - Diathermy Equipment Repairer
-
Discharge Instructions:
Sleep Apnea Risk Intermediate
Discharge Diagnosis/Procedures Acute stroke, hypertensive emergency, acute
heart failure, type 2 diabetes
Diet Diabetic, Carb Controlled,2 Gram Sodium
Activity As tolerated
Driving Restrictions As prior to admission
Bathing Restrictions None
Blood Work BMP in one week with your primary care doctor
Instructions:
Stand-Alone Forms:
Changes to Home Medications: Yes
Discharge Medications:
DC Medications w/original date entered in [employer]
albuterol sulfate 90 mcg/actuation aerosol inhaler 2 puff inhalation R Q6HPRN PRN sob 12/22/24
apixaban 5 mg tablet (Eliquis) 5 mg PO BID Blood Clot Prevention/Tx 12/22/24
atorvastatin 40 mg tablet (Lipitor) 40 mg PO QPM High Cholesterol 12/22/24
diltiazem HCl 240 mg capsule,24 hr,extended release 240 mg PO DAILY Arrhythmia 12/22/24
guaifenesin 600 mg tablet, extended release 12 hr (Mucinex) 600 mg PO BIDPRN PRN congestion 12/22/24
metoprolol succinate 100 mg tablet,extended release 24 hr (Toprol XL) 100 mg PO DAILY Blood Pressure 12/22/24
fluticasone fur. 200 mcg-umeclid 62.5 mcg-vilant 25 mcg inhalat.powder (Trelegy Ellipta) 1 inh inhalation DAILY sob #60 ea 12/23/24
prednisone 10 mg tablet See Rx Instructions .Route .COMPLEX #45 tabs 12/23/24
valsartan 320 mg tablet 320 mg PO DAILY #30 tabs 12/23/24
dapagliflozin propanediol 10 mg tablet 10 mg PO DAILY #30 tabs 12/29/24
furosemide 40 mg tablet (Lasix) 40 mg PO DAILY #30 tabs 12/29/24
Home Medication Changes
Furosemide dose increased to 40 mg daily.
Pending Results: No
[2024-12-29 12:26] VITALS: BP 128/87; PULSE 80
--- NOTE | 2024-12-29 12:28 | CM ---
Chart reviewed. Met with family and PT to discuss D/C plan. Family and pt are interested in outpatient therapy to [facility]. Scripts for PT/ OT / speech script for this program. Dr. Rodríguez aware. Will be transported home via
family member car.
Plan: D/C home with outpatient therapy
--- NOTE | 2024-12-29 13:10 | PTCARENOTE ---
12/29- Patient c/o numbness in L-hand which is intermittent, and she hasn't felt it since before she came in. Performed NIH. Patient is still currently 0. She is able to feel and move hands and upper extremities equally and fully. Fine and Gross
motor functions fully intact BL. Patient states she now doesn't feel it. See NIH Assessment. Notified Physician.
[2024-12-31 19:57] LABS: Aldosterone/Renin Activ Ratio 18.9 ratio (<=25.0); Renin Activity Results 0.4 ng/mL/hr
== END 2024-12-29 14:00 | disposition home or self-care (01) | DRG 64 ==
LOC: 4 WEST ACU 03:28
PROVIDERS: Internal Medicine; ADMITTING PHYSICIAN Internal Medicine; ATTENDING PHYSICIAN Hospitalist; CONSULT PHYSICIAN Internal Medicine Cardiovascular Disease; CONSULT PHYSICIAN Psychiatry & Neurology Neurology; EMERGENCY PHYSICIAN Student in an Organized Health Care Education/Training Program; FAMILY PHYSICIAN Internal Medicine
DX: I63.9 Cerebral infarction, unspecified (principal); I50.33 Acute on chronic diastolic (congestive) heart failure; I16.1 Hypertensive emergency; I48.21 Permanent atrial fibrillation; J84.9 Interstitial pulmonary disease, unspecified; M47.12 Other spondylosis with myelopathy, cervical region; I11.0 Hypertensive heart disease with heart failure; E11.9 Type 2 diabetes mellitus without complications; I65.01 Occlusion and stenosis of right vertebral artery; J43.9 Emphysema, unspecified; Z79.01 Long term (current) use of anticoagulants; J44.89 Other specified chronic obstructive pulmonary disease; R29.700 NIHSS score 0; R29.701 NIHSS score 1; Z87.891 Personal history of nicotine dependence; E78.00 Pure hypercholesterolemia, unspecified; K21.9 Gastro-esophageal reflux disease without esophagitis; R47.01 Aphasia; Z79.899 Other long term (current) drug therapy; Z91.199 Patient's noncompliance with other medical treatment and regimen due to unspecified reason
CPT/HCPCS: 0042T; 70450; 70496; 70498; 70551; 71045; 80048; 80061; 82088; 82962; 83036; 83735; 83880; 84244; 84484; 85025; 85027; 85610; 85652; 85730; 92523; 92610; 93005; 94640; 96365; 96366; 96375; 97129; 97162; 97530; 97535; 99291; Q9967

== ENCOUNTER 2025-01-18 11:18 | Outpatient (RCR) | payer MEDICARE, SELFPAY | END 2025-01-18 23:59 | disposition home or self-care (01) | LOC: ROT 11:18 | PROVIDERS: ATTENDING PHYSICIAN Internal Medicine | DX: I69.398 Other sequelae of cerebral infarction (principal); R26.89 Other abnormalities of gait and mobility; Z73.6 Limitation of activities due to disability; I69.314 Frontal lobe and executive function deficit following cerebral infarction; I69.310 Attention and concentration deficit following cerebral infarction; I69.318 Other symptoms and signs involving cognitive functions following cerebral infarction; I69.311 Memory deficit following cerebral infarction; I10 Essential (primary) hypertension | CPT/HCPCS: 96125; 97110; 97112; 97129; 97130; 97162; 97167; 97530; 97535 ==

== ENCOUNTER 2025-01-21 19:06 | Inpatient (IN) | payer MEDICARE, SELFPAY ==
[2025-01-21] VITALS (7 sets, daily range): BP systolic 107–134; BP diastolic 61–122; BMI 31.0; BMI 30.5
[2025-01-21 13:21] LABS: Hematocrit 47.3 % (37.0-47.0); Hemoglobin 15.3 g/dL (12.0-16.0); Mean Corp Hgb Conc. 32.3 g/dL (33.0-37.0); Mean Corpuscular Volume 92.4 fL (81.0-99.0); Nucleated Red Blood Cells % 0 %; Platelet Count 276 10^3/uL (130-400); Red Cell Dist. Width 14.3 % (11.5-14.5)
[2025-01-21 13:38] LABS: COVID-19 Antigen Negative (Negative)
[2025-01-21 13:50] LABS: ALT (SGPT) 20 U/L (0-35); AST (SGOT) 22 U/L (14-36); Albumin 4.6 g/dl (3.5-5.0); Alkaline Phosphatase 95 U/L (38-126); Blood Urea Nitrogen 32 mg/dl (7-17); Calcium 10.1 mg/dl (8.4-10.2); Carbon Dioxide 28 mmol/L (22-30); Chloride 95 mmol/L (98-107); Glucose 151 mg/dl (70-99); Potassium 4.2 mmol/L (3.5-5.1); Sodium 134 mmol/L (135-145); Total Protein 7.2 g/dl (6.3-8.2); eGFR 50.80
--- NOTE | 2025-01-21 17:35 | ED.GENMED ---
History of Present Illness
General
Chief Complaint: Breathing Problem
Source: patient
Exam Limitations: none
Time Seen by Provider: 01/21/25 17:16
Nursing documentation reviewed up to this point in time: agreed with
History of Present Illness
History of Present Illness:
Patient is a very pleasant 79-year-old female who was recently admitted for stroke and CHF, who was sent from physical therapy today for shortness of breath, generalized weakness and hypoxia. Patient reports she has been coughing and weak for 2
days. Patient denies chest pain, vomiting, headache and rash.
Past History
Past History
ED Past Medical History: Arrthythmia, Asthma and HTN
ED Past Surgical History: Other
Social History
Tobacco: Non-smoker
Alcohol: None
Drug: None
Personal:
Living: with family
Employment: Other
Family History
Family History: Other
Review of Systems
Review of Systems
Allergies reviewed?: Yes
All Other Systems: ROS reviewed and negative except as documented in HPI and ROS
Constitutional: Reports fatigue
EENT: Reports no symptoms
Respiratory: Reports cough and trouble breathing
Cardiac: Reports no symptoms
ABD/GI: Reports no symptoms
: Reports no symptoms
Musculoskeletal: Reports no symptoms
Skin: Reports no symptoms
Neurological: Reports no symptoms
Endocrine: Reports no symptoms
Hematologic/Lymphatic: Reports no symptoms
Psychiatric: Reports no symptoms
Phy Exam
Physical Exam
Physical Exam:
Physical Exam
General: no apparent distress, not acutely ill
Neck: supple. no meningeal signs. normal psoterior pharynx
Heart: s1/s2 regular rate and rhythm, no murmur. equal radial pulses.
Lungs: no acute respiratory distress. Left lower lobe crackles
Abdomen: normal bowel sounds. not tender. no CVAT
Neuro: alert and oriented. no focal neurological deficits
Skin: no rash
Psychiatric: well kept. interactive and cooperative
Extremities: no edema. no calf tenderness. negative homans. good distal pulses
Scores
Heart Failure Risk
Heart Failure Risk Score: Not Applicable
Course
Orders/Labs/Results
Orders:
Orders
01/21/25 Breakfast
Cholesterol Lowering
01/21/25 13:04
CR Chest - 2 Views Urgent
Comment:
Reason For Exam: cough/SOB
01/21/25 13:12
BNP [NT-proBNP] Urgent
COVID-19 Antigen Urgent
Source: Nasal Swab
Complete Blood Count/With Diff Urgent
Comprehensive Metabolic Panel Urgent
Influenza A+B Rapid Molecular Urgent
ZEKE Source: Nasal Swab
Specimen Description:
01/21/25 17:47
Piperacillin/Tazo 4.5 Gram [Zosyn] 4.5 gram in 100 ml IV NOW
01/21/25 18:24
Admit/Transfer Patient As Directed
Co-Sign Provider:
Level of Care: Inpatient admission
Assign to:: Telemetry
Physician / Group: nadine pacheco
Diagnosis: acute hypoxic respiratory failure
Reason for Telemetry: Arrhythmia
Date to Stop Telemetry: 01/24/25
Time to Stop Telemetry: 11:00
Reason for Hospitalization: acute hypoxia
Expected length of stay greater than two midnights?: Yes
ELOS- Estimated Length of Stay in days: 3
I certify the patient meets the requirements for IP care: Yes
PRN Pain Medication Management As Directed
May give lesser potent ordered pain med per pt: Yes
preference::
Protocol:: Medication orders for pain may be administered in a
manner that supports deferring to patient preference
when the pt is:
- Requesting an ordered lesser potent pain medication.
Least to most potent pain medications are defined
as: acetaminophen < NSAID < tramadol < opioids
(morphine, oxycodone, hydromorphone).
- Requesting a lesser dose of the same medication IF
ORDERED.
- Requesting a less intrusive route of administration
if both routes are prescribed by the provider (PO <
IV).
01/21/25 18:25
Code Status As Directed
Resuscitation Status: Full Code
01/24/25 11:00
DC Protocol for Telemetry ONCE
Abnormal Lab Results
01/21/25
13:12
WBC 17.3 H 10^3/uL
(4.8-10.8)
Hct 47.3 H %
(37.0-47.0)
MCHC 32.3 L g/dL
(33.0-37.0)
Abs Immat Gran (auto) 0.1 H 10^3/uL
(0-0.05)
Absolute Neuts (auto) 14.5 H 10^3/uL
(1.4-6.5)
Absolute Lymphs (auto) 0.8 L 10^3/uL
(1.2-3.4)
Absolute Monos (auto) 1.9 H 10^3/uL
(0.1-0.6)
Immature Gran % 0.6 H %
(0-0.5)
Neutrophils % 83.7 H %
(42.2-75.2)
Lymphocytes % 4.3 L %
(20.5-51.1)
Monocytes % 11.0 H %
(1.7-9.3)
Sodium 134 L mmol/L
(135-145)
Chloride 95 L mmol/L
(98-107)
BUN 32 H mg/dl
(7-17)
Creatinine 1.1 H mg/dL
(0.6-1.0)
Glucose 151 H mg/dl
(70-99)
01/21/25 13:12
01/21/25 13:12
Vital Signs
Initial and Last Documented VS:
Initial Vital Signs
Temp Pulse Resp BP Pulse Ox
98.0 F 68 20 115/66 93
01/21/25 13:02 01/21/25 13:02 01/21/25 13:02 01/21/25 13:02 01/21/25 13:02
Last Documented Vital Signs
Temp Pulse Resp BP Pulse Ox
98.0 F 77 26 126/107 96
01/21/25 13:02 01/21/25 20:30 01/21/25 20:30 01/21/25 20:00 01/21/25 20:30
MDM/Problems Addressed
Differential Diagnosis Includes:
Acute on chronic CHF, pneumonia, PE
MDM/Problems Addressed:
Patient presents with acute generalized weakness, cough and shortness of breath
Chronic conditions affecting care:
CHF
Acute Exacerbation and/or Progression of Chronic Illness:
Patient may have a mild acute exacerbation of CHF
*Pulse Oximetry
SaO2: 93
Oxygen Mode of Delivery: Room air
Patient hypoxic: no
Comment: 93% on 2 L oxygen. Hypoxic on room air
*EKG
Interpreted by ED Provider?: NA
*District Sales Representative Interpretation
Rate: normal
Interpretation: normal
Rhythm: sinus
*Critical Care Note
Total Time (30-74mins, 75-104mins- exclusive of procedures): Not Applicable
Data Reviewed
Review of Other/Old Records Reveals: Discharge Summary (Discharge summary reviewed from previous recent hospital admission patient was admitted for CVA and CHF)
Source: patient and spouse
Patient Management
Social determinants of health affecting care: Living situation and Strong social support
Discussion with other providers: Hospitalist
ED Attending Note
-
Portions of this chart may have been created with voice recognition software.� Occasional wrong word or��sound alike� substitutions may have occurred due to the inherent limitations of voice recognition software.
Discharge Plan
Departure
Patient Disposition: Admit
Date of Disposition: 01/21/25
Time of Disposition: 17:47
Admit to: Med/Surg
Presentation/result/management discussed w/ accepting MD/DO: Hospitalist
Patient with high blood pressure during this ER visit?: No
Condition: Good
Covid-19: Not Applicable
Discharge Problem:
HAP (hospital-acquired pneumonia)
Interventions
Interventions:
*Risk Screen - Suicide Last Done: 01/21/25 18:59
*General Assessment Last Done: 01/21/25 13:02
*Neglect/Abuse Screening Last Done: 01/21/25 18:59
*ED- Fall Risk Assessment Last Done: 01/21/25 18:59
*ED COVID-19 Vaccine History Last Done: 01/21/25 18:59
ED- Cardiac Assessment Last Done: 01/21/25 19:01
ED- Pulmonary Assessment Last Done: 01/21/25 19:00
--- NOTE | 2025-01-21 18:07 | HPS.HSE ---
Family Physician
-
Family Physician: Eduardo Mccain
Chief Complaint
-
sob
cough
History of Present Illness
79-year-old with past medical history for A-fib, CHF, hypertension, hyperlipidemia, TIA presented to us with cough with clear sputum, sore throat and generalized weakness for past 2 to 3 days. Today she was working with physical therapy, she was
noted to have low oxygen levels. She was noted short of breath. Patient denied any chest pain. Patient denied any headache, dizzy or syncope. Patient denied any fever or chills. Patient denied any abdominal pain, nausea, vomiting or diarrhea.
Patient denied dysuria,hematuria. . Patient denied any lower extremities edema. Patient denied any weight gain
Chest x-ray concerning for pneumonia. Patient received a dose of vancomycin and Zosyn in ER. Admitting for further management
Medical History
Past Medical History
Past Medical History: Reports Other
Additional Past Medical History:
Hypertension, head trauma, chronic A-fib, hyperlipidemia, pneumonia, TIA
Past Surgical History: Reports Other
Additional Past Surgical History:
, coronary artery, ankle fracture repair
Social History
Tobacco: Former Smoker
Alcohol: None
Drug: None
Personal:
Living: With Family
Family History
Family History: Not pertinent
Allergies / Home Medications
Allergies reflects when Allergies were last updated in [facility].
Home Medications with original date entered in [facility]
Allergy/Medication List:
Allergies
Allergy/AdvReac Type Severity Reaction Status Date / Time
No Known Allergies Allergy Verified 01/21/25 13:02
Home Medications
albuterol sulfate 90 mcg/actuation aerosol inhaler 2 puff inhalation R Q6HPRN PRN sob 12/22/24
apixaban 5 mg tablet (Eliquis) 5 mg PO BID Blood Clot Prevention/Tx 12/22/24
atorvastatin 40 mg tablet (Lipitor) 40 mg PO QPM High Cholesterol 12/22/24
diltiazem HCl 240 mg capsule,24 hr,extended release 240 mg PO DAILY Arrhythmia 12/22/24
guaifenesin 600 mg tablet, extended release 12 hr (Mucinex) 600 mg PO BIDPRN PRN congestion 12/22/24
metoprolol succinate 100 mg tablet,extended release 24 hr (Toprol XL) 100 mg PO DAILY Blood Pressure 12/22/24
fluticasone fur. 200 mcg-umeclid 62.5 mcg-vilant 25 mcg inhalat.powder (Trelegy Ellipta) 1 inh inhalation DAILY sob #60 ea 12/23/24
prednisone 10 mg tablet See Rx Instructions .Route .COMPLEX #45 tabs 12/23/24
valsartan 320 mg tablet 320 mg PO DAILY #30 tabs 12/23/24
dapagliflozin propanediol 10 mg tablet 10 mg PO DAILY #30 tabs 12/29/24
furosemide 40 mg tablet (Lasix) 40 mg PO DAILY #30 tabs 12/29/24
Review of Systems
-
Constitutional: Reports No Symptoms
EENT: Reports Sore Throat
Respiratory: Reports Cough and Trouble Breathing
Cardiac: Reports No Symptoms
Abdomen/GI: Reports No Symptoms
: Reports No Symptoms
Musculoskeletal: Reports No Symptoms
Skin: Reports No Symptoms
Neurological: Reports Weakness
Endocrine: Reports No Symptoms
Hematologic/Lymphatic: Reports No Symptoms
Psych: Reports No Symptoms
Physical Exam
Vital Signs
Vital Signs
Temp Pulse Resp BP Pulse Ox
98.0 F 68 20 115/66 93
01/21/25 13:02 01/21/25 13:02 01/21/25 13:02 01/21/25 13:02 01/21/25 17:35
Physical Exam
General: Well Developed, Well Nourished and No Apparent Distress
HEENT: NormoCephalic, Moist mucous membranes and Atraumatic
Respiratory: Clear
Cardiac: S1/S2 and Regular Rhythm; No Murmur or Rub
GI: Soft, Non Tender, Non Distended and Normal Bowel Sounds; No Organomegaly
Rectal: Deferred by Provider
Musculoskeletal: No Clubbing, No Cyanosis and No Edema
Skin: No Rash
Neuro: AO x 3 and Nonfocal/grossly intact
Psych: Calm
Laboratory Results
-
01/21/25 13:12
01/21/25 13:12
Laboratory Results
Total Bilirubin 1.2 mg/dl (0.2-1.3) 01/21/25 13:12
AST 22 U/L (14-36) 01/21/25 13:12
ALT 20 U/L (0-35) 01/21/25 13:12
Alkaline Phosphatase 95 U/L (38-126) 01/21/25 13:12
Data Reviewed
-
Diagnostic Radiology: Report Reviewed by me
Lab Data: Labs Reviewed by me
Impression/Plan
-
# Acute hypoxic respiratory failure secondary to pneumonia
- WBC 17.3, COVID-negative
- Chest x-ray with impression of new patchy areas of airspace disease in the right upper lobe and left lower lobe. Given history of cough pneumonia cannot be excluded.There is mild increase in pulmonary vasculature. Please correlate for signs of
congestive heart failure
- Patient requiring 2 L of ox, continue supplemental oxygen to keep sat greater than 95, wean as tolerated
- IV Zosyn and Vanco continued
- Tylenol as needed for fever or pain
- Nebs [place] for short of breath and wheezing
# History of CHF
- On Lasix, Farxiga
- Strict JOYCE, daily weight
# Acute kidney injury
- Creatinine 1.1
-hold Lasix and valsartan
# TIA
DM2
- On Farxiga
- Sliding scale, CHO diet
- Continue to monitor
#Permanent atrial fibrillation -continue Eliquis. Metoprolol continue with hold parameters, diltiazem continued
#COPD without exacerbation -continue inhalers.
# History of hypertension
- Valsartan held due to KUNAL
#Interstitial lung disease
-home oxygen only prn
#Hyperlipidemia -atorvastatin.
History of carotid stenosis -s/p CEA 2016.
Obesity due to excess calories
Full code
[2025-01-21] MEDS: ZOSYN 100 IV (18:19)
--- NOTE | 2025-01-21 18:50 | W.PN.UPDATE ---
Update Note
Progress Note Update
This note serves as an addendum to the H&P by oxyacetylene torch operator BRENDA�
Michelle
HPI
79F HX A-fib, CHF, HTN, HLD, TIA seen at ER
- pw cough with clear sputum, sore throat and generalized weakness for past 2 to 3 days.
- Today she was working with physical therapy, she was noted to have low oxygen levels.
- report short of breath.
ROS
- denied any chest pain
- denied any headache, dizzy or syncope.
- denied any fever or chills.
- denied any abdominal pain, nausea, vomiting or diarrhea.
- denied dysuria,hematuria.
- denied any lower extremities edema.
- denied any weight gain
CXR : concerning for PNA - received a dose of vancomycin and Zosyn in ER.
Relevant VS
Temp Pulse Resp BP Pulse Ox
98.0 F 86 34 116/82 97
01/21/25 13:02 01/21/25 18:22 01/21/25 18:00 01/21/25 18:00 01/21/25 18:00
PE
Gen: Not toxic
HEENT: anicteric
Neck: supple
Lungs: no wheeze , symetric AE
Cor:RRR S12 S2
Abdomen:�soft benign exam
SLIP COVER SEWER: NFND
MS:no edema
Psych:nl mood and affect
Relevant data�
12/28/24 12/28/24 01/21/25
00:57 05:07 13:12
WBC 12.2 H 17.3 H
Hgb 13.8 15.3
Sodium 134 L
Chloride 95 L
BUN 32 H
Creatinine 1.1 H
eGFR 50.80
Ovz-S-Cdcndwgfvdr Pept 3340 1120
CXR:
- new patchy areas of airspace disease in the right upper lobe and left lower lobe.
Given history of cough pneumonia cannot be excluded.
- There is mild increase in pulmonary vasculature.
- Please correlate for signs of congestive heart failure
ASSESSMENT & PLAN
Acute hypoxic RF secondary to multifocal PNA
- WBC 17.3, NEG COVID
- empiric IV Zosyn and Vanco continued
- Tylenol PRN
- Nebs PRN
HX CHF
- clinically not in acute HF
- On Lasix, Farxiga
- Strict IOs, daily weight
KUNAL with - Creatinine 1.1
- Hold Lasix
- c/w Losartan
HX TIA
DM2
- On Farxiga
- ISS low
HX Permanent AF
- on PHOTO FINISHER Eliquis plus Metoprolol + Diltiazem - ontinue with hold parameters
HX COPD without exacerbation
- c/w PHOTO FINISHER inhalers.
Benign HTN
- Valsartan continue with all parameters
HX Interstitial lung disease
-on PRN Home O2
Hyperlipidemia -
on PHOTO FINISHER atorvastatin.
HX carotid stenosis -s/p CEA 2016.
Obesity due to excess calories
DVT Px: on PHOTO FINISHER Eliquis
Code: Full code
IP TLM
[2025-01-21] MEDS: VANCOCIN 530 MG IV (19:34)
[2025-01-21 22:36] LABS: Glucose - Point of Care 170 mg/dl (70-99)
--- NOTE | 2025-01-21 22:48 | PHA.VAN.IN ---
Assessment
- Assessment
Renal Function: SCR Appears Elevated from baseline
Plan
- Plan
Initial / Loading Dose: 1500 mg x 1
Maintenance Regimen: pharmacy to place one-time orders as appropriate
Monitoring: random level placed for 01/22 a.m.
MRSA Screen: Ordered per protocol
Pharmacokinetics Vancomycin I
- -
Patient Age: 79
Patient Sex: Female
Vancomycin Day #: 1
Indication: Pulmonary/Respiratory
Requesting Provider: MISAEL Vargas
Pertinent Antimicrobial Allergies:
no known allergies
Height / Weight:
Height 5 ft
Actual Weight 70.817 kg
- Vital Signs / Lab Results
Temp Pulse Resp BP Pulse Ox
97.7 F 73 18 116/63 94
01/21/25 22:27 01/21/25 22:27 01/21/25 22:27 01/21/25 22:27 01/21/25 22:27
Lab Results - Hematology
01/21/25
13:12
WBC 17.3 H
Lab Results - Chemistry
01/21/25
13:12
BUN 32 H
Creatinine 1.1 H
Albumin 4.6
Microbiology Results
01/21/25 13:12 Influenza Types A & B (TIA) - Final
Nasal Swab Negative for Influenza A & B, NAAT
Negative results must be combined with clinical observations
and patient history.
Nucleic Acid Amplification test (NAAT)performed on the
[employer] NOW platform.
[2025-01-21] MEDS: MUCINEX 600 MG PO (23:16)
[2025-01-21] MEDS: ELIQUIS 5 MG PO (23:16)
[2025-01-21] MEDS: ZOSYN 50 IV (23:16)
[2025-01-22 03:03] VITALS: BP 131/75
[2025-01-22 06:00] VITALS: BMI 30.5
--- NOTE | 2025-01-22 06:15 | PTCARENOTE ---
Patient arrived to unit via stretcher. AAOx3. No c/o pain or discomfort. [address] at 2 liters. Oriented to unit. Call lowry within reach.
[2025-01-22] MEDS: ZOSYN 50 IV ×4 (06:25→23:54)
[2025-01-22 07:04] VITALS: BP 128/71
[2025-01-22 07:57] LABS: Glucose - Point of Care 130 mg/dl (70-99)
[2025-01-22 08:43] LABS: Hematocrit 44.8 % (37.0-47.0); Hemoglobin 14.6 g/dL (12.0-16.0); Mean Corp Hgb Conc. 32.6 g/dL (33.0-37.0); Mean Corpuscular Volume 93.7 fL (81.0-99.0); Platelet Count 247 10^3/uL (130-400); Red Cell Dist. Width 14.1 % (11.5-14.5)
[2025-01-22 09:04] LABS: Blood Urea Nitrogen 34 mg/dl (7-17); Calcium 9.6 mg/dl (8.4-10.2); Carbon Dioxide 31 mmol/L (22-30); Chloride 97 mmol/L (98-107); Estimated Creatinine Clearance 30 ml/min; Glucose 130 mg/dl (70-99); Potassium 3.9 mmol/L (3.5-5.1); Sodium 135 mmol/L (135-145); eGFR 41.57
[2025-01-22] MEDS: NOVOLOG FLEXPEN-LOW RESISTANCE SC ×2 (09:08→16:46)
[2025-01-22] MEDS: CARDIZEM CD 240 MG PO (09:08)
[2025-01-22] MEDS: FARXIGA 10 MG PO (09:08)
[2025-01-22] MEDS: ELIQUIS 5 MG PO ×2 (09:08→20:19)
[2025-01-22] MEDS: TOPROL XL 100 MG PO (09:09)
[2025-01-22] MEDS: MUCINEX 600 MG PO ×2 (09:09→20:19)
--- NOTE | 2025-01-22 09:23 | PHA.VAN.FU ---
Vancomycin Assessment / Plan
- Assessment
Renal Function: SCR Increasing
WBC's are: Trending Down
In the past 24 hrs, patient has been: Afebrile
Concomitant Antimicrobials: PIPERACILLIN/TAZOBACTAM
- Assessment - Therapeutic Drug Monitoring
Random Level: 15.5 DRAWN ~13 HOURS AFTER PREVIOUS DOSE VANCO 1500MG
- Dosing Plan
Dosing by Level: Re-dose today (VANCO 1000MG X1)
- Monitoring Plan
Random Level: 01/23 @0600
- Follow Up
Pharmacy will continue to follow.
Vancomycin Follow UP
- -
Patient Age: 79
Patient Sex: Female
Vancomycin Day #: 2
Indication: Pulmonary/Respiratory
Requesting Provider: MISAEL Vargas
Pertinent Antimicrobial Allergies:
no known allergies
Height / Weight:
Height 5 ft
Actual Weight 70.76 kg
- Vital Signs / Lab Results
Temp Pulse Resp BP Pulse Ox
98.7 F 80 16 128/71 95
01/22/25 07:04 01/22/25 07:04 01/22/25 07:04 01/22/25 07:04 01/22/25 07:04
Lab Results - Hematology
01/21/25 01/22/25
13:12 08:16
WBC 17.3 H 13.7 H
Lab Results - Chemistry
01/21/25 01/22/25
13:12 08:16
BUN 32 H 34 H
Creatinine 1.1 H 1.3 H
Estimated Creat Clear 30
Albumin 4.6
Microbiology Results
01/21/25 13:12 Influenza Types A & B (TIA) - Final
Nasal Swab Negative for Influenza A & B, NAAT
Negative results must be combined with clinical observations
and patient history.
Nucleic Acid Amplification test (NAAT)performed on the
[employer] NOW platform.
Therapeutic Drug Monitoring
Random Vancomycin 15.5 ug/ml 01/22/25 08:16
[2025-01-22] MEDS: VANCOCIN 200 IV (09:35)
[2025-01-22 11:14] VITALS: BP 113/58
[2025-01-22 11:53] LABS: Glucose - Point of Care 272 mg/dl (70-99)
[2025-01-22] MEDS: NOVOLOG FLEXPEN-LOW RESISTANCE 3 UNITS SC (11:57)
[2025-01-22 12:10] LABS: Urine Character Clear (Clear)
[2025-01-22 12:32] LABS: Urine Squamous Cell 0-2 /LPF (Few)
[2025-01-22 12:37] LABS: Urine Red Blood Cell 0-2 /HPF (0-2)
--- NOTE | 2025-01-22 12:57 | W.PN.HOSP.TC ---
Today's Communication/Plan
-
Monitor vitals
See plan
Speech evaluation
Continue Vanco and Zosyn
Follow culture
pt
Assessment / Plan
Assessment / Plan
General: Well Developed, Well Nourished and No Apparent Distress
HEENT: NormoCephalic, Moist mucous membranes and Atraumatic
Respiratory: Clear
Cardiac: S1/S2 and Regular Rhythm; No Murmur or Rub
GI: Soft, Non Tender, Non Distended and Normal Bowel Sounds
Musculoskeletal: No Edema
Neuro: AO x 3 and Nonfocal/grossly intact
Psych: Calm
Acute hypoxic respiratory insufficiency secondary to pneumonia
- WBC 17.3, COVID-negative
- Chest x-ray with impression of new patchy areas of airspace disease in the right upper lobe and left lower lobe. Given history of cough pneumonia cannot be excluded.There is mild increase in pulmonary vasculature. Please correlate for signs of
congestive heart failure
Patient currently on 2 L nasal cannula, wean oxygen as tolerated
Continue with Vanco and Zosyn, MRSA screen
- Tylenol as needed for fever or pain
- Nebs [place] for short of breath and wheezing
# History of CHFpEF does not appear to be in acute exacerbation
proBNP lower than before
- On Lasix, Farxiga
Hold Lasix for now
History of recent CVA
Continue Eliquis
Speech
PT
# Acute kidney injury
Discharge creatinine earlier this month 0.8, now 1.3
-hold Lasix and valsartan
DM2
- On Farxiga
- Sliding scale
- Continue to monitor
#Permanent atrial fibrillation -continue Eliquis. Metoprolol continue with hold parameters, diltiazem continued
#COPD without exacerbation -continue inhalers.
# History of hypertension
- Valsartan held due to KUNAL
#Interstitial lung disease
-home oxygen only prn
#Hyperlipidemia -atorvastatin.
History of carotid stenosis -s/p CEA 2016.
Obesity due to excess calories
Full code
Anticipated Discharge: 24 - 48 hours
Subjective/Interval History
-
Date of Service: January 22, 2025
Denies pain
Objective Data
-
Labs:
Laboratory Results
01/22/25
08:16
WBC 13.7 H
Hgb 14.6
Hct 44.8
Plt Count 247
Sodium 135
Potassium 3.9
Chloride 97 L
Carbon Dioxide 31 H
BUN 34 H
Creatinine 1.3 H
Glucose 130 H
Calcium 9.6
Vital Signs:
Vital Signs
Temp Pulse Resp BP Pulse Ox
98.6 F 82 16 113/58 98
01/22/25 11:14 01/22/25 11:14 01/22/25 11:14 01/22/25 11:14 01/22/25 11:14
I&O
01/21/25 01/22/25 01/23/25
06:59 06:59 06:59
Intake Total 340 / 340
Balance 340 / 340
[2025-01-22] MEDS: ZOFRAN 4 MG IV (14:38)
[2025-01-22] MEDS: COLACE 100 MG PO ×2 (15:17→20:19)
[2025-01-22 15:33] VITALS: BP 119/56
--- NOTE | 2025-01-22 15:58 | PTCARENOTE ---
Pt OOB to bathroom to have a BM. Pt stated having trouble, feeling constipated and was 'pushing' to have BM. Pt proseeded to get up from toilet and felt weak. Daughter states her legs buckled and daughter was there to catch pt and pt did not fall or
hit the ground. Pt assisted to the chair and then back to bed. B/P was 119/52 at that time. Pt stated feeling weak and tired. Stool softener ordered an given. Pt instructed to not strain to have a BM and also to call to go to the bathroom. Bed alarm
in place.
[2025-01-22 16:42] LABS: Glucose - Point of Care 121 mg/dl (70-99)
[2025-01-22 20:13] VITALS: BP 122/63
[2025-01-22 21:36] LABS: Glucose - Point of Care 115 mg/dl (70-99)
[2025-01-23] VITALS (8 sets, daily range): BP systolic 100–124; BP diastolic 48–75; PULSE 75; O2SAT 98; BMI 30.1
[2025-01-23] MEDS: ZOSYN 50 IV ×4 (05:13→23:06)
[2025-01-23 07:28] LABS: Glucose - Point of Care 136 mg/dl (70-99)
[2025-01-23] MEDS: NOVOLOG FLEXPEN-LOW RESISTANCE SC ×2 (07:35→16:32)
[2025-01-23 07:39] LABS: Hematocrit 42.4 % (37.0-47.0); Hemoglobin 13.6 g/dL (12.0-16.0); Mean Corp Hgb Conc. 32.1 g/dL (33.0-37.0); Mean Corpuscular Volume 93.4 fL (81.0-99.0); Platelet Count 259 10^3/uL (130-400); Red Cell Dist. Width 14.1 % (11.5-14.5)
[2025-01-23 08:08] LABS: Blood Urea Nitrogen 30 mg/dl (7-17); Calcium 9.5 mg/dl (8.4-10.2); Carbon Dioxide 31 mmol/L (22-30); Chloride 100 mmol/L (98-107); Estimated Creatinine Clearance 33 ml/min; Glucose 125 mg/dl (70-99); Potassium 3.7 mmol/L (3.5-5.1); Sodium 137 mmol/L (135-145); eGFR 45.76
[2025-01-23] MEDS: ELIQUIS 5 MG PO ×2 (08:50→20:16)
[2025-01-23] MEDS: CARDIZEM CD 240 MG PO (08:50)
[2025-01-23] MEDS: MUCINEX 600 MG PO ×2 (08:50→20:16)
[2025-01-23] MEDS: TOPROL XL 100 MG PO (08:50)
[2025-01-23] MEDS: COLACE 100 MG PO ×2 (08:51→20:16)
[2025-01-23] MEDS: FARXIGA 10 MG PO (08:51)
[2025-01-23 11:27] LABS: Glucose - Point of Care 192 mg/dl (70-99)
--- NOTE | 2025-01-23 12:42 | W.PN.HOSP.TC ---
Today's Communication/Plan
-
Monitor vitals
See plan
Speech evaluation
PT
Continue with Zosyn, DC vancomycin
Assessment / Plan
Assessment / Plan
General: Well Developed, Well Nourished and No Apparent Distress
HEENT: NormoCephalic, Moist mucous membranes and Atraumatic
Respiratory: Clear
Cardiac: S1/S2 and Regular Rhythm; No Murmur or Rub
GI: Soft, Non Tender, Non Distended and Normal Bowel Sounds
Musculoskeletal: No Edema
Neuro: AO x 3 and Nonfocal/grossly intact
Psych: Calm
Acute hypoxic respiratory insufficiency secondary to pneumonia
- COVID-negative
- Chest x-ray with impression of new patchy areas of airspace disease in the right upper lobe and left lower lobe. Given history of cough pneumonia cannot be excluded.There is mild increase in pulmonary vasculature. Please correlate for signs of
congestive heart failure
Patient currently on 2 L nasal cannula, wean oxygen as tolerated. At home uses as needed
MRSA screen negative. Continue Zosyn. DC vanc
- Tylenol as needed for fever or pain
- Nebs prn for short of breath and wheezing
Speech evaluation
# History of CHFpEF does not appear to be in acute exacerbation
proBNP lower than before
- On Lasix, Farxiga
Hold Lasix for now, weight has been down from before
History of recent CVA
Continue Eliquis
Speech
PT
# Acute kidney injury
Discharge creatinine earlier this month 0.8, now 1.2
-hold Lasix and valsartan
monitor
DM2
- On Farxiga
- Sliding scale
- Continue to monitor
#Permanent atrial fibrillation -continue Eliquis. Metoprolol continue with hold parameters, diltiazem continued
#COPD without exacerbation -continue inhalers.
# History of hypertension
- Valsartan held due to KUNAL
#Interstitial lung disease
-home oxygen only prn
#Hyperlipidemia -atorvastatin.
History of carotid stenosis -s/p CEA 2016.
Obesity due to excess calories
Full code
Anticipated Discharge: 24 - 48 hours
Subjective/Interval History
-
Date of Service: January 23, 2025
denies pain
Objective Data
-
Labs:
Laboratory Results
01/23/25
07:11
WBC 12.2 H
Hgb 13.6
Hct 42.4
Plt Count 259
Sodium 137
Potassium 3.7
Chloride 100
Carbon Dioxide 31 H
BUN 30 H
Creatinine 1.2 H
Glucose 125 H
Calcium 9.5
Vital Signs:
Vital Signs
Temp Pulse Resp BP Pulse Ox
97.1 F 66 18 116/62 96
01/23/25 11:33 01/23/25 11:33 01/23/25 11:33 01/23/25 11:33 01/23/25 11:33
I&O
01/22/25 01/23/25 01/24/25
06:59 06:59 06:59
Intake Total 1070 / 1070
Balance 1070 / 1070
[2025-01-23] MEDS: NOVOLOG FLEXPEN-LOW RESISTANCE 1 UNITS SC (12:48)
--- NOTE | 2025-01-23 12:53 | CM ---
Met with patient and at bedside
Pharmacy verified: [facility] @ [address] [place] [address]
Lives w/ ; multilevel home; no steps to enter; 1st floor set up; Bathroom has stall shower, seat, grab bar
PLOF: reported she was independent with personal care; husbands assists w/ ADLs; no device w/ ambulation; not driving
DME: Oxygen, CPAP, Nebulizer
NO SNF or Home Health utilization history
PT/OT assessments pending
Discharge plan to be determined; thinks she needs Rehab for a few days
Plan: Home w/ Home Health/PT/OT vs. SNF
[2025-01-23 16:31] LABS: Glucose - Point of Care 111 mg/dl (70-99)
--- NOTE | 2025-01-23 16:45 | PTOTSP ---
ST Acute Care Evaluation
Pt currently presents with clinical signs of fairly functional oral swallowing parameters, but suspected mild pharyngeal dysphagia characterized by frequent coughing, wet vocal quality, and/or throat clearing s/p ingestion of multiple sequential
sips of thin liquids that is suspicious for airway invasion. Pt would benefit from an instrumental swallow study for further information.
Recommendations:
- Continue with regular solids with thin liquids but only SMALL SINGLE SIPS and NO STRAWS.
- Meds one at a time with small single sips or whole in puree.
- Aspiration precautions: HOB upright during all PO intake; small bites/sips; slow intake rate; alternate bites/sips.
- VFSS or FEES for more objective information regarding pt's current swallowing function.
- MANAGER COMMUNITY RELATIONS to f/u re: completion of instrumental swallow study and subsequent recommendations.
[2025-01-23 21:03] LABS: Glucose - Point of Care 109 mg/dl (70-99)
[2025-01-24] VITALS (7 sets, daily range): BP systolic 120–160; BP diastolic 58–82; PULSE 86; O2SAT 96; BMI 30.7
[2025-01-24] MEDS: TYLENOL 650 MG PO ×2 (01:13→12:14)
[2025-01-24] MEDS: MORPHINE SULFATE 1 MG IV (01:41)
[2025-01-24] MEDS: DUONEB 3 ML INH ×2 (01:45→12:48)
--- NOTE | 2025-01-24 01:58 | PTCARENOTE ---
Addendum entered by July Samuel RN 01/24/25 05:10:
Pt was able to sleep, pain is better and nausea has resolved at this time.
Addendum entered by July Samuel RN 01/24/25 03:28:
Pt with c/o nausea and states pain is now wrapping around to front of chest under her breast. Shea negro A AND P MECHANIC aware. PCXR ordered and Zofran 4mg IV ordered and given as well. Will await results.
Original Note:
Called into pt's room, pt c/o RT middle back pain, 'It's grabbing me, it really hurts.' Pt's POX on 2L 97%. Pt noted to be sob when pain comes. Shea Negro A AND P MECHANIC made aware and up to see patient. Pt given a breathing treatment and Morphine 1mg IV x1 for
the pain. Pt positioned in bed with pillows for comfort. Care ongoing.
[2025-01-24] MEDS: ZOFRAN 4 MG IV (03:06)
[2025-01-24 03:39] LABS: Glucose - Point of Care 140 mg/dl (70-99)
[2025-01-24] MEDS: ZOSYN 50 IV ×2 (05:01→12:22)
[2025-01-24 07:23] LABS: Glucose - Point of Care 143 mg/dl (70-99)
[2025-01-24 07:41] LABS: Hematocrit 43.6 % (37.0-47.0); Hemoglobin 14.3 g/dL (12.0-16.0); Mean Corp Hgb Conc. 32.8 g/dL (33.0-37.0); Mean Corpuscular Volume 94.8 fL (81.0-99.0); Platelet Count 284 10^3/uL (130-400); Red Cell Dist. Width 14.0 % (11.5-14.5)
[2025-01-24 08:13] LABS: Blood Urea Nitrogen 28 mg/dl (7-17); Calcium 9.4 mg/dl (8.4-10.2); Carbon Dioxide 30 mmol/L (22-30); Chloride 98 mmol/L (98-107); Estimated Creatinine Clearance 33 ml/min; Glucose 132 mg/dl (70-99); Potassium 3.8 mmol/L (3.5-5.1); Sodium 137 mmol/L (135-145); eGFR 45.76
[2025-01-24] MEDS: NOVOLOG FLEXPEN-LOW RESISTANCE SC ×2 (08:33→16:58)
[2025-01-24] MEDS: CARDIZEM CD 240 MG PO (08:43)
[2025-01-24] MEDS: ELIQUIS 5 MG PO ×2 (08:43→19:34)
[2025-01-24] MEDS: MUCINEX 600 MG PO ×2 (08:43→19:34)
[2025-01-24] MEDS: FARXIGA 10 MG PO (08:43)
[2025-01-24] MEDS: COLACE 100 MG PO (08:44)
[2025-01-24] MEDS: TOPROL XL 100 MG PO (08:44)
[2025-01-24 12:12] LABS: Glucose - Point of Care 194 mg/dl (70-99)
[2025-01-24] MEDS: NOVOLOG FLEXPEN-LOW RESISTANCE 1 UNITS SC (12:15)
[2025-01-24] MEDS: FLUSH (NSS) 1 FLUSH IV ×3 (12:23→16:59)
--- NOTE | 2025-01-24 12:26 | W.PN.HOSP.TC ---
Today's Communication/Plan
-
Abx
Lasix
Bods Developer
Assessment / Plan
Assessment / Plan
79yo F with PMHX of stroke, Afib, HTN, HFpEF, emphysema, intermitted hypoxic respiratory failure on 2L home O2 came with worsening SOB and significant weakness. Recently was adttedfor acute stroke and CHF exacerbation with HTN emergency 3 weeks ago.
Found KUNAL and pulmonary edema. Patient was recommended LAsix increased to 40mg daily upon last discharge. Also patient has a Hx of medication non-compliance which most likely was a reason for previous stroke, since patient was not consistent with
Elqiuis Rx.
Also found Small airspace consolidation in the peripheral right upper lobe concerning for aspiration pneumonia
New diagnosis of DM
A/P:
#Acute on chronic hypoxic respiratory failure on 2L home O2
#Acute on chronic HFpEF
#Emphysema
#RUL CAP, vs aspiration pneumonia 2/2 possible dysphagia
Start bronchodilators
Switch to Rocephin/DOxy (as per Up-To-Date aspiration pneumonia usually can be treated with the same regimen as CAP, especially with stable patient as this one)
Sputum Cx
CIGAR MAKER and VSE
cont O2
#Pulmonary edema
#Acute on chronic HFpEF exacerbation
#KUNAL with base Cr 0.7-0.8
Cannot exclude hepatorenal component
With persistent pulmonary edema on XR - start low dose lasix, pending Bods Developer
Daily weight and electrolytes, follow Cr
#Afib, perm
#HLD
#Hx of CVA
#Carotid stenosis s/p CEA in 2017
#GERD
#INA
CPAP
cont home meds
DVT ppx Eliquis
Full code
I have spent at least 55min reviewing chart, test results, communication with consultants, family and providing direct patient care
Anticipated Discharge: 24 - 48 hours
Subjective/Interval History
-
Date of Service: January 24, 2025
Objective Data
-
Labs:
Laboratory Results
01/24/25
06:18
WBC 13.5 H
Hgb 14.3
Hct 43.6
Plt Count 284
Sodium 137
Potassium 3.8
Chloride 98
Carbon Dioxide 30
BUN 28 H
Creatinine 1.2 H
Glucose 132 H
Calcium 9.4
Vital Signs:
Vital Signs
Temp Pulse Resp BP Pulse Ox
98.1 F 81 16 129/72 95
01/24/25 11:45 01/24/25 11:45 01/24/25 11:45 01/24/25 11:45 01/24/25 11:45
I&O
01/23/25 01/24/25 01/25/25
06:59 06:59 06:59
Intake Total 1070 / 1070 960 / 960 50 / 50
Balance 1070 / 1070 960 / 960 50 / 50
--- NOTE | 2025-01-24 13:57 | CM ---
Chart reviewed and medical case worker met with patient and spouse at bedside, patient is currently on 2 liters of oxygen, per spouse patient uses 2 liters in home but does not remember the name of the equipment company, patient also has a CPAP. Physical
therapy are recommending home with spouse and outpatient therapy, patient will need script for outpatient therapy.
Plan; Home with spouse and outpatient therapy.
--- NOTE | 2025-01-24 14:08 | PTOTSP ---
Speech Therapy VSE:
Patient presents with functional oral and functional pharyngeal stage of swallowing. No confirmed penetration nor aspiration visualized during the study. No significant pharyngeal retention. Please see patient care note for full details of
swallowing physiology.
Recommend:
1. Continue IDDSI Level 7 (Regular solids), thin liquids
2. Medications as tolerated
3. General aspiration precautions
4. Modifiable risk factors for aspiration pneumonia including encouraging frequent and thorough oral care, pulmonary hygiene measures, and increasing physical mobility as medically feasible
5. FRAME RUNNER to follow for education regarding VSE findings and recommendations and to monitor tolerance of diet
[2025-01-24] MEDS: STERILE WATER FOR INJECTION 10 ML IV (14:17)
[2025-01-24] MEDS: ROCEPHIN 1000 MG IV (14:17)
[2025-01-24] MEDS: LASIX 20 MG IV ×2 (14:18→16:58)
[2025-01-24] MEDS: VIBRAMYCIN 100 MG PO ×2 (14:20→19:35)
--- NOTE | 2025-01-24 14:40 | W.CON.NEPH ---
Consultation
-
Date/Time Consultation Requested: 01/24/2025 12 PM
Date/Time Consultation Performed: 01/24/2025 2 PM
Requesting Provider: Dr. Pina
Performing Provider: Dr. Arita
Reason for Consultation: KUNAL
Medical History
-
Chief Complaint: Nose
History of Present Illness:
79-year-old with A-fib on Eliquis and rate controlled with metoprolol, hyperlipidemia not on statin therapy, hypertension stable on a multidrug regimen. She has heart failure preserved ejection fraction on chronic diuretic therapy which is
compensated as well as Jardiance. She presented to the emergency room with cough with clear sputum, sore throat and generalized weakness for past 2 to 3 days. Today she was working with physical therapy, and she was noted to have low oxygen
levels. She was noted short of breath. Patient denied any chest pain. Patient denied any headache, dizzy or syncope. Patient denied any fever or chills. Patient denied any abdominal pain, nausea, vomiting or diarrhea. Patient denied
dysuria,hematuria. . Patient denied any lower extremities edema. Patient denied any weight gain
Creatinine is slightly off her baseline from 0.8 now at 1.3. She was given higher doses of Lasix recently for the recent hospitalization 3 weeks ago with presumed heart failure.
Past Medical History
Hypertension, head trauma, chronic A-fib, hyperlipidemia, pneumonia, TIA
, coronary artery, ankle fracture repair
Social History
Tobacco: Former Smoker
Alcohol: None
Family History
Family History: Not Pertinent
Allergies / Home Medications
Allergy/AdvReac Type Severity Reaction Status Date / Time
No Known Allergies Allergy Verified 01/21/25 13:02
�Medication �Instructions �Recorded �Confirmed �Type
apixaban 5 mg tablet (Eliquis) 5 mg PO BID Blood Clot 12/22/24 01/21/25 History
Prevention/Tx
diltiazem HCl 240 mg capsule,24 240 mg PO DAILY Arrhythmia 12/22/24 01/21/25 History
hr,extended release
guaifenesin 600 mg tablet, 600 mg PO BIDPRN PRN congestion 12/22/24 01/21/25 History
extended release 12 hr (Mucinex)
metoprolol succinate 100 mg 100 mg PO DAILY Blood Pressure 12/22/24 01/21/25 History
tablet,extended release 24 hr
(Toprol XL)
valsartan 320 mg tablet 320 mg PO DAILY #30 tabs 12/23/24 01/21/25 Rx
furosemide 40 mg tablet (Lasix) 40 mg PO DAILY #30 tabs 12/29/24 01/21/25 Rx
empagliflozin 10 mg tablet 10 mg PO DAILY 01/21/25 01/21/25 History
(Jardiance)
Review of Systems
-
Shortness of breath, no chest pain, no issues with urine output, no dietary indiscretion
Physical Exam
Vital Signs
Vital Signs
Temp Pulse Resp BP Pulse Ox
98.1 F 78 18 129/72 96
01/24/25 11:45 01/24/25 12:51 01/24/25 12:51 01/24/25 11:45 01/24/25 12:51
Lab Results
WBC 13.5 10^3/uL (4.8-10.8) H 01/24/25 06:18
RBC 4.60 10^6/uL (4.20-5.40) 01/24/25 06:18
Hgb 14.3 g/dL (12.0-16.0) 01/24/25 06:18
Hct 43.6 % (37.0-47.0) 01/24/25 06:18
Plt Count 284 10^3/uL (130-400) 01/24/25 06:18
Sodium 137 mmol/L (135-145) 01/24/25 06:18
Potassium 3.8 mmol/L (3.5-5.1) 01/24/25 06:18
Chloride 98 mmol/L (98-107) 01/24/25 06:18
Carbon Dioxide 30 mmol/L (22-30) 01/24/25 06:18
BUN 28 mg/dl (7-17) H 01/24/25 06:18
Creatinine 1.2 mg/dL (0.6-1.0) H 01/24/25 06:18
eGFR 45.76 01/24/25 06:18
Glucose 132 mg/dl (70-99) H 01/24/25 06:18
Calcium 9.4 mg/dl (8.4-10.2) 01/24/25 06:18
Nwf-O-Mgnjlpyvwjl Pept 931 pg/ml 01/24/25 06:18
Albumin 4.6 g/dl (3.5-5.0) 01/21/25 13:12
Laboratory Tests
12/29/24 01/24/25
08:24 06:18
Carbon Dioxide 33 H
Creatinine 0.8
Jrm-U-Zjrusmpryid Pept 931
Physical Exam
Patient is awake alert oriented and in no distress. Mood and affect were pleasant, insight and judgment were good. Pupils are equal round and reactive to light, extraocular movements are intact, sclera were anicteric. Hearing was normal, ears and
nose are intact. Oropharynx was clear. Neck was supple with trachea midline and no thyromegaly. Heart was regular rate and rhythm without rubs. Lower extremities without edema. Lungs were high and rales to auscultation bilaterally and with normal
excursion. Abdomen was soft, nontender, with normal active bowel sounds, and no hepatosplenomegaly. Skin was without rash and with normal turgor.
Data Reviewed
-
Radiology: Image Personally Visualized and interpreted (Chest x-ray 01/24/2025 by my reading cardiomegaly, vascular prominence, right upper lobe infiltrate)
Medical Tests (Nuc Med, Echo etc): Image Personally Visualized and interpreted (EKG 01/22/2025 by my reading atrial fibrillation)
Labs: Labs Reviewed by me
Old Records: Reviewed
Assessment/Plan
-
Assessment
KUNAL
Pneumonia
Decompensated heart failure preserved ejection fraction
Hyponatremia improved
Atrial fibrillation
Plan
I agree that she does appear to be volume overloaded.
IV Lasix 40 mg daily, escalation of dose if needed to ensure diuresis
I would tolerate a creatinine less than 1.5 at this point in order to ensure adequate diuresis and improvement of symptoms
Antibiotics will continue for pneumonia
Hold ARB
May continue SGLT2 Zolyse creatinine is stable
Follow BMP
Discussed with patient and
[2025-01-24 16:50] LABS: Glucose - Point of Care 122 mg/dl (70-99)
[2025-01-24] MEDS: MIRALAX 17 GRAMS PO (17:26)
[2025-01-24] MEDS: SYMBICORT 160/4.5 MCG INHALER 2 PUFF INH (19:32)
[2025-01-24] MEDS: COLACE PO (19:34)
[2025-01-24 21:08] LABS: Glucose - Point of Care 111 mg/dl (70-99)
[2025-01-25] VITALS (7 sets, daily range): BP systolic 110–139; BP diastolic 56–83; PULSE 89; O2SAT 89; BMI 30.5
[2025-01-25 08:09] LABS: Hematocrit 42.5 % (37.0-47.0); Hemoglobin 13.8 g/dL (12.0-16.0); Mean Corp Hgb Conc. 32.5 g/dL (33.0-37.0); Mean Corpuscular Volume 94.7 fL (81.0-99.0); Nucleated Red Blood Cells % 0 %; Platelet Count 288 10^3/uL (130-400); Red Cell Dist. Width 13.9 % (11.5-14.5)
[2025-01-25] MEDS: SYMBICORT 160/4.5 MCG INHALER 2 PUFF INH ×2 (08:17→19:22)
[2025-01-25 08:32] LABS: Blood Urea Nitrogen 19 mg/dl (7-17); Calcium 9.6 mg/dl (8.4-10.2); Carbon Dioxide 35 mmol/L (22-30); Chloride 98 mmol/L (98-107); Estimated Creatinine Clearance 44 ml/min; Glucose 117 mg/dl (70-99); Magnesium 2.0 mg/dl (1.6-2.3); Potassium 4.2 mmol/L (3.5-5.1); Sodium 139 mmol/L (135-145); eGFR > 60.00
[2025-01-25 08:46] LABS: Glucose - Point of Care 260 mg/dl (70-99)
[2025-01-25] MEDS: CARDIZEM CD 240 MG PO (08:49)
[2025-01-25] MEDS: TOPROL XL 100 MG PO (08:49)
[2025-01-25] MEDS: ELIQUIS 5 MG PO ×2 (08:50→20:02)
[2025-01-25] MEDS: FARXIGA 10 MG PO (08:50)
[2025-01-25] MEDS: COLACE 100 MG PO ×2 (08:50→20:02)
[2025-01-25] MEDS: MUCINEX 600 MG PO ×2 (08:50→20:02)
[2025-01-25] MEDS: VIBRAMYCIN 100 MG PO ×2 (08:51→20:02)
[2025-01-25] MEDS: MIRALAX 17 GRAMS PO (08:51)
[2025-01-25] MEDS: LASIX 40 MG IV (08:53)
[2025-01-25] MEDS: NOVOLOG FLEXPEN-LOW RESISTANCE 3 UNITS SC (08:56)
--- NOTE | 2025-01-25 10:20 | CM ---
airport location manager reviewed patient's chart and met with patient and patient to return to home when stable.
Plan; Home when stable.
--- NOTE | 2025-01-25 11:30 | W.PN.HOSP.TC ---
Today's Communication/Plan
-
wean off O2
cont Abx and lasix
card consult
PT/OT
Assessment / Plan
Assessment / Plan
79yo F with PMHX of stroke, Afib, HTN, HFpEF, emphysema, intermitted hypoxic respiratory failure on 2L home O2 came with worsening SOB and significant weakness. Recently was adttedfor acute stroke and CHF exacerbation with HTN emergency 3 weeks ago.
Found KUNAL and pulmonary edema. Patient was recommended LAsix increased to 40mg daily upon last discharge. Also patient has a Hx of medication non-compliance which most likely was a reason for previous stroke, since patient was not consistent with
Elqiuis Rx.
Also found Small airspace consolidation in the peripheral right upper lobe concerning for aspiration pneumonia
New diagnosis of DM
A/P:
#Acute on chronic hypoxic respiratory failure on 2L home O2
#Acute on chronic HFpEF
#Emphysema
#RUL CAP, vs aspiration pneumonia 2/2 possible dysphagia
Start bronchodilators
Switch to Rocephin/Doxy (as per Up-To-Date aspiration pneumonia usually can be treated with the same regimen as CAP, especially with stable patient as this one)
Sputum Cx
OVEN BUILDER and VSE: Regular solids recommended
cont O2
#Pulmonary edema
#Acute on chronic HFpEF exacerbation
#KUNAL with base Cr 0.7-0.8
Cannot exclude hepatorenal component as Cr improved on diuresis
Card consult
Nephro: cont Lasix, daily weight, following electrolytes and Cr
#Afib, perm
#HLD
#Hx of CVA
#Carotid stenosis s/p CEA in 2017
#GERD
#INA
CPAP
cont home meds
DVT ppx Eliquis
Full code
I have spent at least 53min reviewing chart, test results, communication with consultants, family and providing direct patient care
Anticipated Discharge: > 48 hours
Subjective/Interval History
-
Date of Service: January 25, 2025
Objective Data
-
Labs:
Laboratory Results
01/25/25
07:18
WBC 11.5 H
Hgb 13.8
Hct 42.5
Plt Count 288
Sodium 139
Potassium 4.2
Chloride 98
Carbon Dioxide 35 H
BUN 19 H
Creatinine 0.9
Glucose 117 H
Calcium 9.6
Vital Signs:
Vital Signs
Temp Pulse Resp BP Pulse Ox
98.2 F 85 20 125/66 98
01/25/25 11:20 01/25/25 11:20 01/25/25 11:20 01/25/25 11:20 01/25/25 11:20
I&O
01/24/25 01/25/25 01/26/25
06:59 06:59 06:59
Intake Total 960 / 960 1430 / 1430
Output Total 200 / 200
Balance 960 / 960 1230 / 1230
Review of Systems
-
History Source: Patient
All other systems: Reviewed and negative
Physical Exam
-
General: No Apparent Distress
HEENT: Normocephalic
GI: Soft, Nontender and Nondistended
Genito-urinary: No Costovertebral Tender
Musculoskeletal: No Clubbing, No Cyanosis and No Edema
Skin: Warm
Neuro: Awake, Alert, Oriented and AO x 3
Psych: Calm
[2025-01-25 12:33] LABS: Glucose - Point of Care 97 mg/dl (70-99)
--- NOTE | 2025-01-25 12:40 | W.PN.NEPH.PH ---
Today's Communication / Plan
-
follow BMP
Assessment/Plan
-
Assessment
KUNAL
Pneumonia
Decompensated heart failure preserved ejection fraction
Hyponatremia improved
Atrial fibrillation
Plan
IV Lasix 40 mg daily
can convert to lasix 40mg po daily or even prn weight gain on dc
Antibiotics will continue for pneumonia
Hold ARB
May continue SGLT2i
Follow BMP
Discussed with patient and
-
-
Date of Service: January 25, 2025
Labs
-
Labs:
WBC 11.5 10^3/uL (4.8-10.8) H 01/25/25 07:18
RBC 4.49 10^6/uL (4.20-5.40) 01/25/25 07:18
Hgb 13.8 g/dL (12.0-16.0) 01/25/25 07:18
Hct 42.5 % (37.0-47.0) 01/25/25 07:18
Plt Count 288 10^3/uL (130-400) 01/25/25 07:18
Sodium 139 mmol/L (135-145) 01/25/25 07:18
Potassium 4.2 mmol/L (3.5-5.1) 01/25/25 07:18
Chloride 98 mmol/L (98-107) 01/25/25 07:18
Carbon Dioxide 35 mmol/L (22-30) H 01/25/25 07:18
BUN 19 mg/dl (7-17) H 01/25/25 07:18
Creatinine 0.9 mg/dL (0.6-1.0) 01/25/25 07:18
eGFR > 60.00 01/25/25 07:18
Glucose 117 mg/dl (70-99) H 01/25/25 07:18
Calcium 9.6 mg/dl (8.4-10.2) 01/25/25 07:18
Gkv-R-Cjhduzovhcj Pept 931 pg/ml 01/24/25 06:18
Albumin 4.6 g/dl (3.5-5.0) 01/21/25 13:12
Physical Exam
-
Vital Signs:
Vital Signs
Temp Pulse Resp BP Pulse Ox
98.2 F 85 20 125/66 98
01/25/25 11:20 01/25/25 11:20 01/25/25 11:20 01/25/25 11:20 01/25/25 11:20
Cardiovascular:: Regular rate and rhythm
Respiratory:: Bilateral: Coarse
Lung Excursion:: Normal
Abdomen:: Nontender and Soft
Bowel Sounds:: Normal
Extremity Edema:: None: Bilateral:
[2025-01-25] MEDS: NOVOLOG FLEXPEN-LOW RESISTANCE SC ×2 (12:45→17:39)
[2025-01-25] MEDS: STERILE WATER FOR INJECTION 10 ML IV (13:17)
[2025-01-25] MEDS: ROCEPHIN 1000 MG IV (13:17)
--- NOTE | 2025-01-25 15:33 | CON.CAR ---
Addendum entered and electronically signed by Giselle Abel DO 01/25/25 19:08:
I saw and examined the patient.
The Business Banking Manager's note was reviewed and I agree with the note.
Comment: Patient seen and examined with at bedside.. Chart/studies reviewed. Patient came to the ER from outpatient PT on Friday with generalized weakness, SOB, Cough and hypoxia and was admitted with PNA and cardiology is now consulted
for CHF. Patient was initially treated for PNA and possible aspiration. CXR was concerning for possible pulmonary edema and patient also with KUNAL so nephrology was consulted and they have been directing diuresis with Lasix IV and Cre has improved.
Patient lives at home with her and he manages meds including Lasix 40 mg PO daily. She has been compliant with cardiac medications including Lasix and follows a low-salt diet. She is also compliant with CPAP and nocturnal O2.
GEN: Lying supine on room air, NAD. No conversational dyspnea.
LUNGS: Bronchovesicular breath sounds with scattered rhonchi left base otherwise clear
CV: Afib on tele. Irreg, S1/S2, 1/6 murmur
ABD: Soft, nontender. Positive bowel sounds
PV: No B/L LE edema.
Plan:
Hypoxic respiratory distress with cough and general malaise with leukocytosis with initial checks x-ray showing new patchy areas of airspace disease in the right upper lobe and left lower lobe concerning for pneumonia. Cannot exclude a component of
pulmonary congestion from heart failure. Repeat portable chest x-ray 929 with pulmonary edema and improved right upper lobe opacity.
-Patient is improving with IV diuretics and antibiotics now on room air
-proBNP 931.
-Nephrology has been directing IV diuretics with Lasix 40 mg daily. Patient appears improving from a volume status. Would transition to oral Lasix at perhaps an increased dose 60 mg in the next 24-48 hours.
-2D echocardiogram 12/22/2024 with normal biventricular size and systolic function with diastolic dysfunction, mild to moderate MR and moderate TR with pulmonary hypertension. Estimated pulmonary artery systolic pressure 45 mmHg. No indication to
repeat this study at this time
-Continue metoprolol XL 100 mg daily and Farxiga 10 mg daily. Creatinine is improving now 0.9. Would resume valsartan possibly at lower dose if renal function remains normal tomorrow.
-Continue diltiazem CD 240 mg daily and if blood pressures remain on lower end consider reduction
Permanent atrial fibrillation which is asymptomatic with relatively controlled rates
-Continue rate control strategy. Continue Eliquis anticoagulation 5 mg twice daily
Nocturnal hypoxemia/sleep apnea on CPAP with nocturnal O2. Continue CPAP continue close follow-up with pulmonary
Pneumonia, possible aspiration contributing to hypoxic respiratory distress/shortness of breath
-Suspect hypoxia is multifactorial including PNA and CHF
- Aspiration precautions
-Antibiotics per primary
History of recent CVA in the setting of hypertensive emergency
-Blood pressure is controlled
-previous MRI of the brain showed that there was acute complete occlusion of the distal extradural and proximal intradural segments of the right vertebral artery suggesting acute embolism or thrombosis or even acute dissection. There were also
small chronic ischemic infarcts in the right cerebellar hemisphere and the left frontal lobe. Patient's manages OAC due to possible missed doses that might have contributed to acute CVA earlier this month.
-Continue Eliquis anticoagulation. Unclear why patient is not on a statin this admission. Previously had been on atorvastatin 40 mg daily. Lipid profile 12/28/2024 with LDL 65, HDL 68, triglycerides 82. Will resume Atorvastatin
Original Note:
Consultation
Consultation Request
Date/Time Consultation Requested: 01/25/25
Date/Time Consultation Performed: 01/25/25
Requesting Provider: Dr. Pina
Performing Provider: Dr. Abel
Reason for Consultation: Acute HF
Medical History
-
History of Present Illness:
Patient came to the ER from outpatient PT on Friday with generalized weakness, SOB and hypoxia and was admitted with PNA and cardiology is now consulted for CHF. Patient was initially treated for PNA and possible aspiration. CXR was concerning for
possible pulmonary edema and patient also with KUNAL so nephrology was consulted and they have been directing diuresis with Lasix IV and Cre has improved. Patient lives at home with her and he manages meds including Lasix 40 mg PO daily.
PMH:
Recent admission for CHF, CVA and HTN emergency 12/28/24 until 12/29/24
Recent admission for CHF 12/22/24 until 12/23/24
Recent admission for flash pulm edema, HTN emergency 12/20 to 12/22/24
Recent admission to [facility] in [place] for COPD exacerbation 09/24/24 to 09/26/2024
Chronic HFpEF
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
HTN
COPD
Permanent atrial fibrillation
Chronic anticoagulation with Eliquis
ILD
Hypertension
Hyperlipidemia
Carotid stenosis status post endarterectomy in 2016
GERD
Remote former smoker
Past Medical History
Past Medical History: Other (in HPI)
Social History
Tobacco: Former Smoker (remote)
Alcohol: None
Drug: None
Personal:
Living: With Family
Employment: Retired
Family History
Family History: Reviewed & Not Pertinent
Allergies / Home Medications
Allergy/AdvReac Type Severity Reaction Status Date / Time
No Known Allergies Allergy Verified 01/21/25 13:02
�Medication �Instructions �Recorded �Confirmed �Type
apixaban 5 mg tablet (Eliquis) 5 mg PO BID Blood Clot 12/22/24 01/21/25 History
Prevention/Tx
diltiazem HCl 240 mg capsule,24 240 mg PO DAILY Arrhythmia 12/22/24 01/21/25 History
hr,extended release
guaifenesin 600 mg tablet, 600 mg PO BIDPRN PRN congestion 12/22/24 01/21/25 History
extended release 12 hr (Mucinex)
metoprolol succinate 100 mg 100 mg PO DAILY Blood Pressure 12/22/24 01/21/25 History
tablet,extended release 24 hr
(Toprol XL)
valsartan 320 mg tablet 320 mg PO DAILY #30 tabs 12/23/24 01/21/25 Rx
furosemide 40 mg tablet (Lasix) 40 mg PO DAILY #30 tabs 12/29/24 01/21/25 Rx
empagliflozin 10 mg tablet 10 mg PO DAILY 01/21/25 01/21/25 History
(Jardiance)
Review of Systems
-
History Source: Patient and Family ( sitting bedside helps with HPI)
All other systems: Negative unless noted
Physical Exam
Vital Signs
Temp Pulse Resp BP Pulse Ox
97.6 F 92 16 110/56 88
01/25/25 15:29 01/25/25 15:29 01/25/25 15:29 01/25/25 15:29 01/25/25 15:29
GEN: NAD. AAO to person, place and situation
LUNGS: RA, no wheezes
CV: Afib on tele. Irreg, S1/S2, 1 murmur
ABD: +bs, ND, NT
PV: No B/L LE edema.
NEURO: No focal or lateralizing weakness
Lab Results
01/25/25 07:18
01/25/25 07:18
Aoi-T-Fqlqayauwwp Pept 931 pg/ml 01/24/25 06:18
Impression / Plan
-
Primary Shorthand Teacher: Dr. Adams
Assessment:
Admitted with SOB and hypoxia 01/21/25
Recent admission for CHF, CVA and HTN emergency 12/28/24 until 12/29/24
Recent admission for CHF 12/22/24 until 12/23/24
Recent admission for flash pulm edema, HTN emergency 12/20 to 12/22/24
Recent admission to [facility] in [place] for COPD exacerbation 09/24/24 to 09/26/2024
Possible aspiration PNA
Acute on chronic HFpEF
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
HTN
COPD
Permanent atrial fibrillation
Chronic anticoagulation with Eliquis
ILD
Hypertension
Hyperlipidemia
Carotid stenosis status post endarterectomy in 2017
GERD
Remote former smoker
KUNAL
ECHO 10/18/24: EF 50 to 55%, mild concentric LVH, severe left atrial dilation and right atrial dilation, moderate MR, mild AI, moderate TR, PAP 40 to 45 mmHg
Plan:
-Patient came to the ER from outpatient PT on Friday with generalized weakness, SOB and hypoxia and was admitted with PNA and cardiology is now consulted for CHF. Patient was initially treated for PNA and possible aspiration. CXR was concerning for
possible pulmonary edema and patient also with KUNAL so nephrology was consulted and they have been directing diuresis with Lasix IV and Cre has improved. Patient lives at home with her and he manages meds including Lasix 40 mg PO daily. No
weight gain at home and no LE edema, but more SOB. No fevers.
-ECG reviewed by me is Afib
-Tele reviewed by me shows Afib with controlled ventricular response
-Patient being treated for aspiration PNA
-Nephrology has been diuresing as well and Cre improving with diuresis
-Suspect hypoxia is multifactorial including PNA and CHF
-Patient is below previous dry weight, will have to establish a new dry weight at time of discharge.
-Cont Lasix 40 mg IV daily for now and then resume Lasix 40 mg PO daily upon d/c to home. There was no weight gain to trigger family to be concerned for CHF so will provide UptoDate handout for patient information with CHF warning signs that has
helpful graphics.
-Outpatient dose of Toprol-XL 100 mg daily continued
-Outpatient dose of valsartan 320 mg daily was held due to KUNAL on admission
-Outpatient dose of Cardizem CD 240 mg daily has been continued
-Patient with known permanent A-fib and is chronically on Eliquis 5 mg BID and previous MRI of the brain showed that there was acute complete occlusion of the distal extradural and proximal intradural segments of the right vertebral artery
suggesting acute embolism or thrombosis or even acute dissection. There were also small chronic ischemic infarcts in the right cerebellar hemisphere and the left frontal lobe. Patient's manages OAC due to possible missed doses that might
have contributed to acute CVA earlier this month.
-This is the patient's 5th admission this year
[2025-01-25 16:53] LABS: Glucose - Point of Care 112 mg/dl (70-99)
[2025-01-25] MEDS: LIPITOR 40 MG PO (20:02)
[2025-01-25 21:44] LABS: Glucose - Point of Care 102 mg/dl (70-99)
[2025-01-26] VITALS (7 sets, daily range): BP systolic 128–143; BP diastolic 61–82; PULSE 88; BMI 29.7
[2025-01-26 07:49] LABS: Glucose - Point of Care 107 mg/dl (70-99)
[2025-01-26] MEDS: SYMBICORT 160/4.5 MCG INHALER 2 PUFF INH ×2 (08:11→19:36)
[2025-01-26] MEDS: NOVOLOG FLEXPEN-LOW RESISTANCE SC ×2 (08:15→16:44)
[2025-01-26] MEDS: CARDIZEM CD 240 MG PO (08:21)
[2025-01-26] MEDS: COLACE 100 MG PO ×2 (08:22→19:59)
[2025-01-26] MEDS: FARXIGA 10 MG PO (08:22)
[2025-01-26] MEDS: VIBRAMYCIN 100 MG PO ×2 (08:22→19:59)
[2025-01-26] MEDS: MUCINEX 600 MG PO ×2 (08:22→19:59)
[2025-01-26] MEDS: TOPROL XL 100 MG PO (08:22)
[2025-01-26] MEDS: ELIQUIS 5 MG PO ×2 (08:22→19:59)
[2025-01-26] MEDS: LASIX 40 MG IV (08:23)
[2025-01-26] MEDS: MIRALAX 17 GRAMS PO (08:26)
[2025-01-26 08:46] LABS: Hematocrit 45.6 % (37.0-47.0); Hemoglobin 14.5 g/dL (12.0-16.0); Mean Corp Hgb Conc. 31.8 g/dL (33.0-37.0); Mean Corpuscular Volume 94.2 fL (81.0-99.0); Platelet Count 324 10^3/uL (130-400); Red Cell Dist. Width 14.1 % (11.5-14.5)
[2025-01-26 09:21] LABS: Calcium 9.9 mg/dl (8.4-10.2); Carbon Dioxide 35 mmol/L (22-30); Chloride 98 mmol/L (98-107); Estimated Creatinine Clearance 56 ml/min; Glucose 120 mg/dl (70-99); Potassium 3.8 mmol/L (3.5-5.1); Sodium 140 mmol/L (135-145); eGFR > 60.00
--- NOTE | 2025-01-26 09:43 | VATNOTE ---
VAT rounds: Pt states she is sore at her IV site. Redness noted at site, but looks like bruising from insertion. Heat applied, will continue to monitor.
[2025-01-26 09:49] LABS: Blood Urea Nitrogen 18 mg/dl (7-17)
--- NOTE | 2025-01-26 10:57 | W.PN.CARDCBS ---
Addendum entered and electronically signed by Dimas Khan MD 01/26/25 14:05:
I saw and examined the patient.
The Plate Put In Worker's note was reviewed and I agree with the note.
Comment: Briefly, 79-year-old woman past medical history of heart failure preserved ejection fraction, permanent A-fib, COPD/ILD, prior CVA who was admitted with hypoxic respiratory failure and diagnosed with aspiration pneumonia as well as acute
heart failure
Improvement in her respiratory status with IV diuresis
Plan to continue IV Lasix for now
Given multiple admissions this year will plan to diurese as much as able prior to discharge
Hopefully transition to oral diuretics in the next 24 to 48 hours
Follow renal function, electrolytes and daily weights
Atrial fibrillation is permanent
Continue Cardizem and metoprolol for rate control
Eliquis for risk reduction of cardioembolic stroke
Rest per Chasity Eaton
Original Note:
Today's Communication / Plan
-
Ongoing diuresis and will need to establish new dry weight at discharge
Impression / Plan
-
PCP: Dr. Mccain
Primary Rn Sexual Assault: Dr. Adams
Assessment:
Admitted with SOB and hypoxia 01/21/25
Recent admission for CHF, CVA and HTN emergency 12/28/24 until 12/29/24
Recent admission for CHF 12/22/24 until 12/23/24
Recent admission for flash pulm edema, HTN emergency 12/20 to 12/22/24
Recent admission to [facility] in [place] for COPD exacerbation 09/24/24 to 09/26/2024
Possible aspiration PNA
Acute on chronic HFpEF
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
HTN
COPD
Permanent atrial fibrillation
Chronic anticoagulation with Eliquis
ILD
Hypertension
Hyperlipidemia
Carotid stenosis status post endarterectomy in 2017
GERD
Remote former smoker
KUNAL
ECHO 10/18/24: EF 50 to 55%, mild concentric LVH, severe left atrial dilation and right atrial dilation, moderate MR, mild AI, moderate TR, PAP 40 to 45 mmHg
Plan:
-Patient admitted with multifactorial hypoxia including aspiration PNA and acute HFpEF
-Weight is down 4 lbs overnight following initiation of Lasix 40 mg IV daily. Patient was taking Lasix 40 mg PO daily prior to admission
-Patient is below previous dry weight, will have to establish a new dry weight at time of discharge.
-Nephrology following for KUNAL on admission, Cre was as high as 1.3 on 01/22/2025 and is improved with diuresis and down to 0.7 on 01/26/2025, all labs reviewed by me 01/26/2025
-EF was 50 to 55% by echo 10/18/2024
-Nephrology following and Cre stable at 0.7.
-Outpatient dose of Toprol-XL 100 mg daily continued
-Outpatient dose of valsartan 320 mg daily was held due to KUNAL on admission
-Outpatient dose of Cardizem CD 240 mg daily has been continued
-Tele reviewed by me shows Afib with controlled ventricular response
-Patient with known permanent A-fib and is chronically on Eliquis 5 mg BID and previous MRI of the brain showed that there was acute complete occlusion of the distal extradural and proximal intradural segments of the right vertebral artery
suggesting acute embolism or thrombosis or even acute dissection. There were also small chronic ischemic infarcts in the right cerebellar hemisphere and the left frontal lobe. Patient's manages OAC due to possible missed doses that might
have contributed to acute CVA earlier this month.
-This is the patient's 5th admission this year
HPI: Patient came to the ER from outpatient PT on Friday with generalized weakness, SOB and hypoxia and was admitted with PNA and cardiology is now consulted for CHF. Patient was initially treated for PNA and possible aspiration. CXR was concerning
for possible pulmonary edema and patient also with KUNAL so nephrology was consulted and they have been directing diuresis with Lasix IV and Cre has improved. Patient lives at home with her and he manages meds including Lasix 40 mg PO daily.
No weight gain at home and no LE edema, but more SOB. No fevers.
Progress Note - Rn Sexual Assault
Subjective
Date of Service: January 26, 2025
Denies pain
Objective
Labs:
01/26/25 08:04
01/26/25 08:04
Labs
Hgb 14.5 g/dL (12.0-16.0) 01/26/25 08:04
Hct 45.6 % (37.0-47.0) 01/26/25 08:04
Plt Count 324 10^3/uL (130-400) 01/26/25 08:04
Sodium 140 mmol/L (135-145) 01/26/25 08:04
Potassium 3.8 mmol/L (3.5-5.1) 01/26/25 08:04
BUN 18 mg/dl (7-17) H 01/26/25 08:04
Creatinine 0.7 mg/dL (0.6-1.0) 01/26/25 08:04
Glucose 120 mg/dl (70-99) H 01/26/25 08:04
Vital Signs and I&O:
Vital Signs
Temp Pulse Resp BP Pulse Ox
98.1 F 85 18 143/82 93
01/26/25 07:00 01/26/25 07:00 01/26/25 07:00 01/26/25 07:00 01/26/25 07:00
Vital Signs
Temp Pulse Resp BP Pulse Ox
98.1 F 85 18 143/82 93
01/26/25 07:00 01/26/25 07:00 01/26/25 07:00 01/26/25 07:00 01/26/25 07:00
Intake & Output
01/24/25 01/25/25 01/26/25 01/27/25
06:59 06:59 06:59 06:59
Intake Total 960 / 960 1430 / 1430 720 / 720
Output Total 200 / 200
Balance 960 / 960 1230 / 1230 720 / 720
Physical Exam
Physical Exam
GEN: NAD.
LUNGS: RA
CV: Afib on tele.
--- NOTE | 2025-01-26 11:29 | W.PN.HOSP.TC ---
Today's Communication/Plan
-
cont IV lasix as per Card
Assessment / Plan
Assessment / Plan
79yo F with PMHX of stroke, Afib, HTN, HFpEF, emphysema, intermitted hypoxic respiratory failure on 2L home O2 came with worsening SOB and significant weakness. Recently was adttedfor acute stroke and CHF exacerbation with HTN emergency 3 weeks ago.
Found KUNAL and pulmonary edema. Patient was recommended LAsix increased to 40mg daily upon last discharge. Also patient has a Hx of medication non-compliance which most likely was a reason for previous stroke, since patient was not consistent with
Elqiuis Rx.
Also found Small airspace consolidation in the peripheral right upper lobe concerning for aspiration pneumonia
New diagnosis of DM
A/P:
#Acute on chronic hypoxic respiratory failure on 2L home O2
#Acute on chronic HFpEF
#Emphysema
#RUL CAP, vs aspiration pneumonia 2/2 possible dysphagia
Start bronchodilators
Switch to Rocephin/Doxy (as per Up-To-Date aspiration pneumonia usually can be treated with the same regimen as CAP, especially with stable patient as this one)
Sputum Cx: usual resp nahs
PRE SALES TECHNICAL CONSULTANT and VSE: Regular solids recommended
cont O2 NS - weaned off daytime O2 on 01/26/25
#Pulmonary edema
#Acute on chronic HFpEF exacerbation
#KUNAL with base Cr 0.7-0.8
Cannot exclude hepatorenal component as Cr improved on diuresis
Card consult
Nephro: cont Lasix, daily weight, following electrolytes and Cr
#DM type 2
new diagnosis
follow up with PCP
HgbA1c 6.9% - reasonable to cont Jardiance
#Afib, perm
#HLD
#Hx of CVA
#Carotid stenosis s/p CEA in 2017
#GERD
#INA
CPAP
cont home meds
DVT ppx Eliquis
Full code
I have spent at least 36min reviewing chart, test results, communication with consultants, family and providing direct patient care
Anticipated Discharge: Today
Subjective/Interval History
-
Date of Service: January 26, 2025
Objective Data
-
Labs:
Laboratory Results
01/26/25
08:04
WBC 10.9 H
Hgb 14.5
Hct 45.6
Plt Count 324
Sodium 140
Potassium 3.8
Chloride 98
Carbon Dioxide 35 H
BUN 18 H
Creatinine 0.7
Glucose 120 H
Calcium 9.9
Vital Signs:
Vital Signs
Temp Pulse Resp BP Pulse Ox
98.1 F 85 18 143/82 93
01/26/25 07:00 01/26/25 07:00 01/26/25 07:00 01/26/25 07:00 01/26/25 07:00
I&O
01/25/25 01/26/25 01/27/25
06:59 06:59 06:59
Intake Total 1430 / 1430 720 / 720
Output Total 200 / 200
Balance 1230 / 1230 720 / 720
Review of Systems
-
History Source: Patient
All other systems: Reviewed and negative
Physical Exam
-
General: No Apparent Distress
Respiratory: Clear to Auscultation; Negative Wheezes or Crackles
Neuro: Awake, Alert, Oriented and AO x 3
Psych: Calm
[2025-01-26 12:05] LABS: Glucose - Point of Care 159 mg/dl (70-99)
--- NOTE | 2025-01-26 12:22 | W.DCSUMMARY ---
Discharge Summary
Discharge Data
Date of Admission: 01/21/25
Date of Discharge: 01/27/25
-
Pending Results: No
Hospital Course
79yo F with PMHX of stroke, Afib, HTN, HFpEF, emphysema, intermitted hypoxic respiratory failure on 2L home O2 came with worsening SOB and significant weakness. Recently was adttedfor acute stroke and CHF exacerbation with HTN emergency 3 weeks ago.
Found KUNAL and pulmonary edema. Patient was recommended LAsix increased to 40mg daily upon last discharge - recommended to continue same.. Also patient has a Hx of medication non-compliance which most likely was a reason for previous stroke, since
patient was not consistent with Elqiuis Rx.
Also found Small airspace consolidation in the peripheral right upper lobe concerning for aspiration pneumonia - improving on Abx. Possible apical emphysema, so bronchodilators started and Pulm refferal for PFT provided.
New diagnosis of DM
Medically stable and on RA not hypoxic on the day of d/c. DC home
I have spent at least 36min reviewing chart, test results, communication with consultants, family and providing direct patient care
Patient was managed for
#Acute on chronic hypoxic respiratory failure on 2L home O2
#Acute on chronic HFpEF
#Emphysema
#RUL CAP, vs aspiration pneumonia 2/2 possible dysphagia
#Pulmonary edema
#Acute on chronic HFpEF exacerbation
#KUNAL with base Cr 0.7-0.8
#DM type 2
#Afib, perm
#HLD
#Hx of CVA
#Carotid stenosis s/p CEA in 2017
#GERD
#INA
Discharge Plan
-
Patient Disposition: Home (Routine Discharge)
Discharge Diagnosis/Procedures: Pneumonia
Diet: 2 Gram Sodium, Diabetic, Carb Controlled and Restrict fluids to 64 oz
Other Services: PT
Specialty Instructions: Weigh Daily- Call MD for wt gain/loss 3 lbs overnight/5 lbs in 1 week
Referrals:
Timoteo Adams MD [Active, Cardiology] - in less than 1 week
Dario Preciado MD [Active, Pulmonary Medicine] - in two to four weeks
Referral Note: Emphysema
Eduardo Mccain MD [Family Provider, Internal Medicine]
Prescriptions:
New
atorvastatin 40 mg Tablet
40 mg PO QPM Qty: 30 0RF
albuterol sulfate [Ventolin HFA] 90 mcg/actuation HFA aerosol inhaler
2 puff inhalation Q6H PRN (Reason: shortness of breath or wheezing) Qty: 6.7 0RF
Spiriva Respimat 2.5 mcg/actuation mist
2 inh inhalation DAILY Qty: 4 0RF
cefdinir 300 mg capsule
300 mg PO BID Qty: 8 0RF
doxycycline hyclate 100 mg capsule
100 mg PO BID Qty: 8 0RF
furosemide [Lasix] 40 mg tablet
40 mg PO DAILY Qty: 30 0RF
Continued
metoprolol succinate [Toprol XL] 100 mg Tablet Extended Release 24 Hr
100 mg PO DAILY
diltiazem HCl 240 mg Capsule,Extended Release 24 Hr
240 mg PO DAILY
Eliquis 5 mg Tablet
5 mg PO BID
Patient Comments:
12/22/24-patient receives free samples
guaifenesin [Mucinex] 600 mg Tablet Extended Release 12hr
600 mg PO BIDPRN PRN (Reason: congestion)
Jardiance 10 mg Tablet
10 mg PO DAILY
Discontinued
valsartan 320 mg tablet
320 mg PO DAILY Qty: 30 0RF
furosemide [Lasix] 40 mg tablet
40 mg PO DAILY Qty: 30 0RF
Discharge Orders:
Discharge Patient (As Directed); Ordered 01/27/25
Ordered By: Yann Pina
Discharge Date and Time
Print Language: MALTESE
[2025-01-26] MEDS: NOVOLOG FLEXPEN-LOW RESISTANCE 1 UNITS SC (12:37)
[2025-01-26] MEDS: STERILE WATER FOR INJECTION 10 ML IV (14:08)
[2025-01-26] MEDS: ROCEPHIN 1000 MG IV (14:09)
--- NOTE | 2025-01-26 14:27 | W.PN.NEPH.PH ---
Today's Communication / Plan
-
Sign off
Assessment/Plan
-
Assessment
KUNAL
Pneumonia
Decompensated heart failure preserved ejection fraction
Hyponatremia improved
Atrial fibrillation
Plan
Transition to oral Lasix
KUNAL resolved
Antibiotics will continue for pneumonia
May continue SGLT2i
Sign off
-
-
Date of Service: January 26, 2025
CC / HPI / ROS
-
Chief Complaint:
KUNAL
History of Present Illness:
Creatinine returned to baseline 0.7
Hemodynamically stable
Review of Systems:
non oliguric
weights down
no fevers
Labs
-
Labs:
WBC 10.9 10^3/uL (4.8-10.8) H 01/26/25 08:04
RBC 4.84 10^6/uL (4.20-5.40) 01/26/25 08:04
Hgb 14.5 g/dL (12.0-16.0) 01/26/25 08:04
Hct 45.6 % (37.0-47.0) 01/26/25 08:04
Plt Count 324 10^3/uL (130-400) 01/26/25 08:04
Sodium 140 mmol/L (135-145) 01/26/25 08:04
Potassium 3.8 mmol/L (3.5-5.1) 01/26/25 08:04
Chloride 98 mmol/L (98-107) 01/26/25 08:04
Carbon Dioxide 35 mmol/L (22-30) H 01/26/25 08:04
BUN 18 mg/dl (7-17) H 01/26/25 08:04
Creatinine 0.7 mg/dL (0.6-1.0) 01/26/25 08:04
eGFR > 60.00 01/26/25 08:04
Glucose 120 mg/dl (70-99) H 01/26/25 08:04
Calcium 9.9 mg/dl (8.4-10.2) 01/26/25 08:04
Uaq-C-Whsfhsowuwm Pept 931 pg/ml 01/24/25 06:18
Albumin 4.6 g/dl (3.5-5.0) 01/21/25 13:12
Physical Exam
-
Vital Signs:
Vital Signs
Temp Pulse Resp BP Pulse Ox
98.4 F 88 18 143/66 95
01/26/25 11:56 01/26/25 11:56 01/26/25 11:56 01/26/25 11:56 01/26/25 11:56
Cardiovascular:: Regular rate and rhythm
Respiratory:: Bilateral: Coarse
Lung Excursion:: Normal
Abdomen:: Nontender and Soft
Bowel Sounds:: Normal
Extremity Edema:: None: Bilateral:
--- NOTE | 2025-01-26 15:20 | CM ---
Physical therapy are recommending home care, shoe parts caser met with patient to discuss home care and patient declined home care services at this time.
Plan; Home with spouse.
[2025-01-26 16:18] LABS: Glucose - Point of Care 94 mg/dl (70-99)
[2025-01-26] MEDS: LIPITOR 40 MG PO (17:12)
--- NOTE | 2025-01-26 17:35 | VATNOTE ---
Checked back with pt regarding discomfort at IV site. Pt denying discomfort at this time, states IV is fine. No further interventions taken.
[2025-01-26 21:41] LABS: Glucose - Point of Care 105 mg/dl (70-99)
[2025-01-27 03:05] VITALS: BP 141/87
[2025-01-27 06:00] VITALS: BMI 29.8
[2025-01-27 07:00] VITALS: BP 162/97
[2025-01-27 07:20] LABS: Blood Urea Nitrogen 20 mg/dl (7-17); Calcium 9.8 mg/dl (8.4-10.2); Carbon Dioxide 35 mmol/L (22-30); Chloride 101 mmol/L (98-107); Estimated Creatinine Clearance 49 ml/min; Glucose 111 mg/dl (70-99); Magnesium 1.9 mg/dl (1.6-2.3); Potassium 4.1 mmol/L (3.5-5.1); Sodium 141 mmol/L (135-145); eGFR > 60.00
[2025-01-27] MEDS: CARDIZEM CD 240 MG PO (08:08)
[2025-01-27] MEDS: VIBRAMYCIN 100 MG PO (08:08)
[2025-01-27] MEDS: MUCINEX 600 MG PO (08:09)
[2025-01-27] MEDS: TOPROL XL 100 MG PO (08:09)
[2025-01-27] MEDS: COLACE 100 MG PO (08:09)
[2025-01-27] MEDS: FARXIGA 10 MG PO (08:09)
[2025-01-27] MEDS: ELIQUIS 5 MG PO (08:09)
[2025-01-27] MEDS: LASIX 40 MG IV (08:10)
[2025-01-27 08:13] LABS: Glucose - Point of Care 117 mg/dl (70-99)
[2025-01-27] MEDS: MIRALAX 17 GRAMS PO (08:15)
[2025-01-27] MEDS: SYMBICORT 160/4.5 MCG INHALER 2 PUFF INH (08:17)
[2025-01-27] MEDS: NOVOLOG FLEXPEN-LOW RESISTANCE SC ×2 (08:40→13:03)
--- NOTE | 2025-01-27 09:09 | W.PN.CARDCBS ---
Addendum entered and electronically signed by Kenny Rico MD 01/27/25 15:12:
Patient interviewed and examined. She offers no complaints and appears comfortable.
123/89, pulse 68, respiratory rate 18, afebrile, weight is 69.1 kg, peak weight in hospital was 71.3 kg and 72 kg at admission. No distress, head neck exam unremarkable, lungs are clear, soft systolic murmur, somewhat irregular, not much edema
Impression:
See below.
Plan:
Note below reviewed in detail, and agree, unless otherwise specified.
Okay for discharge from cardiac standpoint.
Cardiology follow-up is arranged.
Original Note:
Today's Communication / Plan
-
creat stable at baseline 0.8
wt stable overnight
transition to oral diuretic
Impression / Plan
-
PCP: Dr. Mccain
Primary School Coordinator: Dr. Adams
Assessment:
Admitted with SOB and hypoxia 01/21/25
Recent admission for CHF, CVA and HTN emergency 12/28/24 until 12/29/24
Recent admission for CHF 12/22/24 until 12/23/24
Recent admission for flash pulm edema, HTN emergency 12/20 to 12/22/24
Recent admission to [facility] [place] for COPD exacerbation 09/24/24 to 09/26/2024
Possible aspiration PNA
Acute on chronic HFpEF
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
HTN
COPD
Permanent atrial fibrillation
Chronic anticoagulation with Eliquis
ILD
Hypertension
Hyperlipidemia
Carotid stenosis status post endarterectomy in 2017
GERD
Remote former smoker
KUNAL
ECHO 10/18/24: EF 50 to 55%, mild concentric LVH, severe left atrial dilation and right atrial dilation, moderate MR, mild AI, moderate TR, PAP 40 to 45 mmHg
Plan:
-Patient admitted with multifactorial hypoxia including aspiration PNA and acute HFpEF
-Weight unchanged in past 24 hrs at 152 lb , overall down 6 lbs since admission on 01/21. On Lasix 40 mg IV daily. Patient was taking Lasix 40 mg PO daily prior to admission
-Patient is below previous dry weight (157 lbs on 12/29/2024), will have to establish a new dry weight at time of discharge.
-Nephrology was following for KUNAL on admission, Cre was as high as 1.3 on 01/22/2025 and is improved with diuresis and down to 0.8 on 01/27/2025. Valsartan remains on hold. Nephrology ok'd continuing SGLT2.
-EF was 50 to 55% by echo 10/18/2024
-Outpatient dose of Toprol-XL 100 mg daily continued
-Outpatient dose of valsartan 320 mg daily was held due to KUNAL on admission, BPs have been 130s-140s/ this a.m. 162/97
-Outpatient dose of Cardizem CD 240 mg daily has been continued
-Tele reviewed by me shows Afib with controlled ventricular response HR 90s
-Patient with known permanent A-fib and is chronically on Eliquis 5 mg BID and previous MRI of the brain showed that there was acute complete occlusion of the distal extradural and proximal intradural segments of the right vertebral artery
suggesting acute embolism or thrombosis or even acute dissection. There were also small chronic ischemic infarcts in the right cerebellar hemisphere and the left frontal lobe. Patient's manages OAC due to possible missed doses that might
have contributed to acute CVA earlier this month.
-This is the patient's 5th admission this year
HPI: Patient came to the ER from outpatient PT on Friday with generalized weakness, SOB and hypoxia and was admitted with PNA and cardiology is now consulted for CHF. Patient was initially treated for PNA and possible aspiration. CXR was concerning
for possible pulmonary edema and patient also with KUNAL so nephrology was consulted and they have been directing diuresis with Lasix IV and Cre has improved. Patient lives at home with her and he manages meds including Lasix 40 mg PO daily.
No weight gain at home and no LE edema, but more SOB. No fevers.
Progress Note - School Coordinator
Subjective
Date of Service: January 27, 2025
SOB improved
'I don't feel like anything is wrong with me'
wt stable overnight
Objective
Labs:
01/26/25 08:04
01/27/25 06:16
Labs
Hgb 14.5 g/dL (12.0-16.0) 01/26/25 08:04
Hct 45.6 % (37.0-47.0) 01/26/25 08:04
Plt Count 324 10^3/uL (130-400) 01/26/25 08:04
Sodium 141 mmol/L (135-145) 01/27/25 06:16
Potassium 4.1 mmol/L (3.5-5.1) 01/27/25 06:16
BUN 20 mg/dl (7-17) H 01/27/25 06:16
Creatinine 0.8 mg/dL (0.6-1.0) 01/27/25 06:16
Glucose 111 mg/dl (70-99) H 01/27/25 06:16
Vital Signs and I&O:
Vital Signs
Temp Pulse Resp BP Pulse Ox
97.5 F 93 16 162/97 92
01/27/25 07:00 01/27/25 08:20 01/27/25 08:20 01/27/25 07:00 01/27/25 08:20
Vital Signs
Temp Pulse Resp BP Pulse Ox
97.5 F 93 16 162/97 92
01/27/25 07:00 01/27/25 08:20 01/27/25 08:20 01/27/25 07:00 01/27/25 08:20
Intake & Output
01/25/25 01/26/25 01/27/25 01/28/25
06:59 06:59 06:59 06:59
Intake Total 1430 / 1430 720 / 720 240 / 240
Output Total 200 / 200
Balance 1230 / 1230 720 / 720 240 / 240
Physical Exam
Physical Exam
GEN: No distress, awake, Ox3
HEENT: supple, anicteric, mmm
LUNGS: rales at bases cleared with coughing
CV: irreg, irreg,S1/S2,
ABD: soft, BS+, NT/ND
EXT: No edema
NEURO: Gross non-focal
SKIN: No rash
--- NOTE | 2025-01-27 10:54 | W.PN.HOSP.TC ---
Today's Communication/Plan
-
dc
Assessment / Plan
Assessment / Plan
79yo F with PMHX of stroke, Afib, HTN, HFpEF, emphysema, intermitted hypoxic respiratory failure on 2L home O2 came with worsening SOB and significant weakness. Recently was adttedfor acute stroke and CHF exacerbation with HTN emergency 3 weeks ago.
Found KUNAL and pulmonary edema. Patient was recommended LAsix increased to 40mg daily upon last discharge. Also patient has a Hx of medication non-compliance which most likely was a reason for previous stroke, since patient was not consistent with
Elqiuis Rx.
Also found Small airspace consolidation in the peripheral right upper lobe concerning for aspiration pneumonia
New diagnosis of DM
A/P:
#Acute on chronic hypoxic respiratory failure on 2L home O2
#Acute on chronic HFpEF
#Emphysema
#RUL CAP, vs aspiration pneumonia 2/2 possible dysphagia
Start bronchodilators
Switch to Rocephin/Doxy (as per Up-To-Date aspiration pneumonia usually can be treated with the same regimen as CAP, especially with stable patient as this one)
Sputum Cx: usual resp nash
[employer] and VSE: Regular solids recommended
cont O2 NS - weaned off daytime O2 on 01/26/25
#Pulmonary edema
#Acute on chronic HFpEF exacerbation
#KUNAL with base Cr 0.7-0.8
Cannot exclude hepatorenal component as Cr improved on diuresis
Card consult
Nephro: cont Lasix, daily weight, following electrolytes and Cr
#DM type 2
new diagnosis
follow up with PCP
HgbA1c 6.9% - reasonable to cont Jardiance
#Afib, perm
#HLD
#Hx of CVA
#Carotid stenosis s/p CEA in 2017
#GERD
#INA
CPAP
cont home meds
DVT ppx Eliquis
Full code
I have spent at least 36min reviewing chart, test results, communication with consultants, family and providing direct patient care
Anticipated Discharge: Today
Subjective/Interval History
-
Date of Service: January 27, 2025
Objective Data
-
Labs:
Laboratory Results
01/27/25
06:16
Sodium 141
Potassium 4.1
Chloride 101
Carbon Dioxide 35 H
BUN 20 H
Creatinine 0.8
Glucose 111 H
Calcium 9.8
Vital Signs:
Vital Signs
Temp Pulse Resp BP Pulse Ox
97.5 F 93 16 162/97 92
01/27/25 07:00 01/27/25 08:20 01/27/25 08:20 01/27/25 07:00 01/27/25 08:20
I&O
01/26/25 01/27/25 01/28/25
06:59 06:59 06:59
Intake Total 720 / 720 240 / 240
Balance 720 / 720 240 / 240
Review of Systems
-
History Source: Patient
All other systems: Reviewed and negative
Physical Exam
-
General: No Apparent Distress
HEENT: Normocephalic
Cardiac: Regular Rhythm
Neuro: Awake, Alert, Oriented and AO x 3
Psych: Calm
[2025-01-27 11:00] VITALS: BP 123/89
--- NOTE | 2025-01-27 13:35 | CM ---
Chart reviewed and patient has been cleared for discharge today.
Plan; Home today with spouse no needs.
== END 2025-01-27 14:24 | disposition home or self-care (01) | DRG 177 ==
LOC: 4 WEST ACU 19:06
PROVIDERS: Emergency Medicine; Internal Medicine; Registered Nurse; ADMITTING PHYSICIAN Internal Medicine; ATTENDING PHYSICIAN Internal Medicine; CONSULT PHYSICIAN Internal Medicine Cardiovascular Disease; CONSULT PHYSICIAN Specialist; EMERGENCY PHYSICIAN Emergency Medicine; FAMILY PHYSICIAN Internal Medicine
DX: J69.0 Pneumonitis due to inhalation of food and vomit (principal); I50.33 Acute on chronic diastolic (congestive) heart failure; J96.21 Acute and chronic respiratory failure with hypoxia; J44.0 Chronic obstructive pulmonary disease with (acute) lower respiratory infection; N17.9 Acute kidney failure, unspecified; I48.21 Permanent atrial fibrillation; E87.1 Hypo-osmolality and hyponatremia; J18.9 Pneumonia, unspecified organism; Z99.81 Dependence on supplemental oxygen; I11.0 Hypertensive heart disease with heart failure; J43.9 Emphysema, unspecified; Z11.52 Encounter for screening for COVID-19; E11.9 Type 2 diabetes mellitus without complications; E78.5 Hyperlipidemia, unspecified; Z86.73 Personal history of transient ischemic attack (TIA), and cerebral infarction without residual deficits; K21.9 Gastro-esophageal reflux disease without esophagitis; G47.33 Obstructive sleep apnea (adult) (pediatric); Z79.899 Other long term (current) drug therapy; Z79.01 Long term (current) use of anticoagulants; Z79.84 Long term (current) use of oral hypoglycemic drugs; Z87.891 Personal history of nicotine dependence; E66.09 Other obesity due to excess calories; Y95 Nosocomial condition
CPT/HCPCS: 71045; 71046; 74230; 80048; 80053; 80202; 81003; 81015; 82962; 83735; 83880; 85025; 85027; 87070; 87086; 87205; 87449; 87502; 87641; 87811; 87899; 92526; 92610; 92611; 93005; 94640; 96374; 96375; 97116; 97162; 97530; 99284

== ENCOUNTER 2025-02-22 07:21 | Outpatient (RCR) | payer MEDICARE, SELFPAY | END 2025-02-22 23:59 | disposition home or self-care (01) | LOC: ROT 07:21 | PROVIDERS: ATTENDING PHYSICIAN Internal Medicine | DX: I69.398 Other sequelae of cerebral infarction (principal); R26.89 Other abnormalities of gait and mobility; Z73.6 Limitation of activities due to disability; I69.314 Frontal lobe and executive function deficit following cerebral infarction; I69.310 Attention and concentration deficit following cerebral infarction; I69.318 Other symptoms and signs involving cognitive functions following cerebral infarction | CPT/HCPCS: 97110; 97112; 97129; 97130; 97164; 97168; 97530; 97535; 97537 ==

== ENCOUNTER 2025-03-14 12:03 | Outpatient (RCR) | payer MEDICARE, SELFPAY | END 2025-03-23 23:59 | disposition home or self-care (01) | LOC: ROT 12:03 | PROVIDERS: ATTENDING PHYSICIAN Internal Medicine | DX: I69.398 Other sequelae of cerebral infarction (principal); R26.89 Other abnormalities of gait and mobility; Z73.6 Limitation of activities due to disability; I69.314 Frontal lobe and executive function deficit following cerebral infarction; I69.310 Attention and concentration deficit following cerebral infarction; I69.318 Other symptoms and signs involving cognitive functions following cerebral infarction | CPT/HCPCS: 97110; 97112; 97129; 97130; 97140; 97530; 97535; 97537 ==

== ENCOUNTER 2025-04-25 09:31 | Outpatient (RCR) | payer MEDICARE, SELFPAY | END 2025-04-25 23:59 | disposition home or self-care (01) | LOC: ROT 09:31 | PROVIDERS: ATTENDING PHYSICIAN Internal Medicine | DX: I69.398 Other sequelae of cerebral infarction (principal); R26.89 Other abnormalities of gait and mobility; Z73.6 Limitation of activities due to disability; I69.314 Frontal lobe and executive function deficit following cerebral infarction; I69.310 Attention and concentration deficit following cerebral infarction; I69.318 Other symptoms and signs involving cognitive functions following cerebral infarction | CPT/HCPCS: 97110; 97112; 97129; 97130; 97530; 97535; 97537 ==